=== PATIENT | male | born 1985 | race Caucasian/White ===

== ENCOUNTER → 2016-07-02 | Outpatient (CLI) | payer BC ==
[~2016-07-02] MED LIST: DILT-121 PO; GEMF600T3 PO; HYDR12.55 PO; INSDGI SC; INSPMPNVLG; INSUINJ14 SQ; INSUINJ4 SC; LISI40TA PO; NIAC50TA PO; ONDA4TAB10 SL; OXYC-57 PO; OXYC1TAB3 PO; PRT/40 PO
[2016-07-02 11:22] LABS: ESTIMATED AVERAGE GLUCOSE 166 mg/dl; HA1C FLAG Normal (Normal)
[2016-07-02 11:46] LABS: ALT/SGPT 130 U/L (12-78); AST/SGOT 47 U/L (15-37); BLOOD UREA NITROGEN 13 mg/dl (7-18); BUN/CREATININE RATIO 14.3 (10-20); CALCIUM 9.4 mg/dl (8.5-10.1); CARBON DIOXIDE 29 mmol/L (21-32); CHLORIDE 104 mmol/L (98-107); CREATININE 0.92 mg/dl (0.60-1.40); GLUCOSE 132 mg/dl (70-99); POTASSIUM 4.3 mmol/L (3.5-5.1); SODIUM 140 mmol/L (136-145); TRIGLYCERIDES 644 mg/dl (0-150)
== END | disposition home or self-care (01) ==
LOC: C.LAB1850 10:18
PROVIDERS: ATTEND Internal Medicine
DX: E78.5 Hyperlipidemia, unspecified (principal)

== ENCOUNTER 2016-09-30 11:49 | Emergency (ER) | payer BC, OTHER ==
[~2016-09-30] VITALS: Ht 180.3 cm; Wt 116.2 kg
[~2016-09-30 11:49] MED LIST changes: -DILT-121 PO; -GEMF600T3 PO; -HYDR12.55 PO; -INSDGI SC; -INSPMPNVLG; -LISI40TA PO; -OXYC-57 PO; -PRT/40 PO
[2016-09-30 11:53] VITALS: TEMP 36.6; Ht 180.3 cm; Wt 116.2 kg
[2016-09-30] MEDS ORDERED: SODIUM CHLORIDE 0.9% 1000ML 1,000 ML IV STA (12:17)
[2016-09-30] MEDS ORDERED: ONDANSETRON INJ 2 MG/ML 2 ML VIAL IV STA (12:17)
[2016-09-30] MEDS ORDERED: HYDROmorphone INJ 1 MG/ML SYR IV STA ×2 (12:17→13:12)
[2016-09-30 12:34] LABS: BASO % 0.3 %; BASO ABS # 0.02 K/uL (0-0.2); COMPLETE YES; EOS % 1.1 %; HEMATOCRIT 43.5 % (42-52); IG% 1.1 %; LYMPH % 24.4 %; MEAN CELL VOLUME 80.7 fL (80-100); MEAN CORPUSCULAR HEMOGLOBIN 28.8 pg (25-34); MEAN CORPUSCULAR HGB CONC 35.6 g/dl (32-36); MEAN PLATELET VOLUME 11.6 fL (7.4-10.4); MONO % 8.2 %; NEUT % 64.9 %; PLATELET COUNT 226 K/uL (130-400); RED BLOOD COUNT 5.39 M/uL (4.7-6.1); WHITE BLOOD COUNT 6.55 K/uL (4.8-10.8)
[2016-09-30 13:15] LABS: URINE APPEARANCE CLEAR (CLEAR); URINE BILIRUBIN NEG (NEG); URINE COLOR DK YELLOW; URINE EPITHELIAL CELL AUTO >30 /lpf (0-5); URINE NITRITE NEG (NEG); URINE PH 5.5 (4.5-7.5); URINE SPECIFIC GRAVITY 1.023 (1.000-1.030); UROBILINOGEN NEG (NEG)
[2016-09-30 13:19] LABS: ALKALINE PHOSPHATASE 99 U/L (45-117); ALT/SGPT 39 U/L (12-78); AST/SGOT 23 U/L (15-37); BLOOD UREA NITROGEN 10 mg/dl (7-18); BUN/CREATININE RATIO 10.4 (10-20); CALCIUM 9.4 mg/dl (8.5-10.1); CARBON DIOXIDE 26 mmol/L (21-32); CHLORIDE 108 mmol/L (98-107); CREATININE 0.97 mg/dl (0.60-1.40); GLUCOSE 77 mg/dl (70-99); POTASSIUM 4.3 mmol/L (3.5-5.1); SODIUM 142 mmol/L (136-145)
[2016-09-30 13:20] LABS: MANUAL MICROSCOPIC REQUIRED? NO; REVIEW REQ? YES
[2016-09-30] MEDS ORDERED: HYDROmorphone INJ 1 MG/ML SYR IM STA (14:03)
[2016-09-30] MEDS ORDERED: OXYC-57 PO (14:08)
[2016-09-30 14:13] VITALS: O2SAT 96
[2016-09-30 14:35] VITALS: BP 148/88; PULSE 81; O2SAT 96
--- NOTE | 2016-09-30 19:54 | EMERGENCY ROOM VISIT NOTE ---
ED Visit Note First contact with patient: 11:59 Chief Complaint: Abdominal pain. History of Present Illness: Mr. Miranda is a 31 year-old white male who ambulates into the ED complaining of epigastric abdominal pain. Historically patient reports history every current pancreatitis and status post cholecystectomy. His recurrent pancreatitis is been going on for the last 3 years she reports 2 years ago his gallbladder was removed because he had sludge and it was felt to be the culprit in his recurrent pancreatitis. He continues to have pain intermittently. The most recent 3 for his discomfort is sphincter of Ode dysfunction. 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 Patient reports he was woken from sleep approximately 5 hours ago with epigastric pain. Since that time his pain has been constant. He describes his discomfort as a cramping sensation. There is extension into his pain into the medial border of the left upper quadrant. He has not identified any aggravating or alleviating factors related to the pain. He has not taken any medications for pain prior to arrival at the hospital. He rates his discomfort 8/10. Associated with his pain he reports she's been nauseated but has not vomited. He denies fevers, chills, sweats, skin eruptions, skin color changes, upper respiratory tract symptoms, shortness of breath, chest pain, diarrhea, constipation, rectal bleeding, black/tarry stools, urinary symptoms, hematuria, back/flank pain. Review of Systems: As noted above in history of present illness. All body systems were reviewed and found to be negative as noted above. Past Medical History: As previously noted and diabetes, unspecified skin disorder. Current Medications: Insulin, pantoprazole, lisinopril, diltiazem, niacin, Lopid. Allergies to Medications: Patient denies. Social History: Patient is currently employed; he lives with his fiance and feels safe in his home environment; he denies tobacco and alcohol use. Physical Examination: Vital Signs: Date Time Temp Pulse Resp B/P Pulse Ox O2 Delivery O2 Flow Rate FiO2 09/30/16 14:35 81 16 148/88 96 Room Air 09/30/16 14:13 96 Room Air 09/30/16 12:59 80 16 155/101 09/30/16 11:53 36.6 123 18 145/96 97 Room Air GENERAL: 31-year-old male in moderate distress due to pain, nontoxic-appearing, afebrile and hemodynamically stable. NEUROLOGICAL: Awake, alert and oriented to person, place and time. Answering questions appropriately and following commands. Normal gait. Good hand eye coordination. SKIN: Warm, dry and pink. No soft tissue eruptions or trauma noted. HEENT: Atraumatic and normocephalic. PERRLA. Sclera white and conjunctiva pink. Speech normal. No lymphadenopathy. Trachea midline. No jugular venous distention. BACK: No tenderness over the bony spine. No CVA tenderness. THORAX: Lungs sounds are clear to auscultation and equal bilaterally with symmetrical chest wall. No wheezing, rales or rhonchi. No crepitus, tenderness , subcutaneous air or deformities noted. HEART: Regular rate and rhythm. No gallops, rubs or murmurs are appreciated. ABDOMEN: Flat and soft with moderate tenderness in the epigastrium and the medial aspect of the left upper quadrant. Positive bowel sounds in all quadrants. No guarding, rigidity or organomegaly. EXTREMITIES: Moves all extremities well on command and with purpose. All distal neurovascular statuses are intact and equal bilaterally. ED Course: Patient is assessed as noted above. Laboratory Testing: Test 09/30/16 12:17 09/30/16 12:55 Range/Units White Blood Count 6.55 4.8-10.8 K/uL Red Blood Count 5.39 4.7-6.1 M/uL Hemoglobin 15.5 14.0-18.0 g/dL Hematocrit 43.5 42-52 % Mean Corpuscular Volume 80.7 80-100 fL Mean Corpuscular Hemoglobin 28.8 25-34 pg Mean Corpuscular Hemoglobin Concent 35.6 32-36 g/dl Platelet Count 226 130-400 K/uL Mean Platelet Volume 11.6 7.4-10.4 fL Neutrophils (%) (Auto) 64.9 % Lymphocytes (%) (Auto) 24.4 % Monocytes (%) (Auto) 8.2 % Eosinophils (%) (Auto) 1.1 % Basophils (%) (Auto) 0.3 % Neutrophils # (Auto) 4.25 1.4-6.5 K/uL Lymphocytes # (Auto) 1.60 1.2-3.4 K/uL Monocytes # (Auto) 0.54 0.11-0.59 K/uL Eosinophils # (Auto) 0.07 0-0.5 K/uL Basophils # (Auto) 0.02 0-0.2 K/uL RDW Standard Deviation 36.8 36.4-46.3 fL RDW Coefficient of Variation 12.4 11.5-14.5 % Immature Granulocyte % (Auto) 1.1 % Immature Granulocyte # (Auto) 0.07 0.00-0.02 K/uL Sodium Level 142 136-145 mmol/L Potassium Level 4.3 3.5-5.1 mmol/L Chloride Level 108 98-107 mmol/L Carbon Dioxide Level 26 21-32 mmol/L Anion Gap 8.0 3-11 mmol/L Blood Urea Nitrogen 10 7-18 mg/dl Creatinine 0.97 0.60-1.40 mg/dl Est Creatinine Clear Calc Drug Dose 145.6 ml/min Estimated GFR () 121.8 Estimated GFR (Non- 105.1 BUN/Creatinine Ratio 10.4 10-20 Random Glucose 77 70-99 mg/dl Calcium Level 9.4 8.5-10.1 mg/dl Total Bilirubin 0.6 0.2-1 mg/dl Direct Bilirubin 0-0.2 mg/dl Aspartate Amino Transf (AST/SGOT) 23 15-37 U/L Alanine Aminotransferase (ALT/SGPT) 39 12-78 U/L Alkaline Phosphatase 99 45-117 U/L Total Protein 8.2 6.4-8.2 gm/dl Albumin 4.1 3.4-5.0 gm/dl Lipase 1908 73-393 U/L Chemistry Specimen Hemolysis Urine Color DK YELLOW Urine Appearance CLEAR CLEAR Urine pH 5.5 4.5-7.5 Urine Specific [place] 1.023 1.000-1.030 Urine Protein 3+ NEG Urine Glucose (UA) 2+ NEG Urine Ketones NEG NEG Urine Occult Blood TRACE NEG Urine Nitrite NEG NEG Urine Bilirubin NEG NEG Urine Urobilinogen NEG NEG Urine Leukocyte Esterase NEG NEG Urine WBC (Auto) 1-5 0-5 /hpf Urine RBC (Auto) 5-10 0-4 /hpf Urine Hyaline Casts (Auto) >30 0-5 /lpf Urine Epithelial Cells (Auto) >30 0-5 /lpf Urine Bacteria (Auto) NEG NEG Urine Renal Epithelial Cells 0-5 /lpf Urine Pathogenic Casts 0 /lpf Patient was hydrated with normal saline and initially she 1 mg of the Dilaudid IV for pain and 4 mg of Zofran IV for nausea. On additional reevaluation she received an additional 1 mg of Dilaudid IV and just prior to discharge she was given 1 mg of Dilaudid IV IM. Patient was reassessed multiple times during his stay in the emergency department. I did have a lengthy conversation with the patient about admission versus discharge to home and he requested to be discharged. Patient's case was reviewed with Dr. Montoya; we agreed on diagnostic approach, treatment, disposition and plan. Patient was educated about tonight's findings and instructed on his treatment plan; he verbalizes understanding and agreement with this plan. Clinical Impression: Acute on chronic pancreatitis. Decision-Making: Initially my differential diagnosis I considered pancreatitis, hepatitis, gastroenteritis, gastric reflux, peptic ulcer disease, pneumonia and other causes. Disposition: Patient discharged home in stable condition accompanied by a male friend; prior to departure he was reassessed and subjectively reported he was feeling better and rated his discomfort 2/10. Plan: Patient was encouraged to use a liquid diet only for the next 48 hours and avoid all stomach irritants. Patient was prescribed Percocet for pain on a sliding pain scale; appropriate narcotic precautions were discussed with the patient. Patient was encouraged to follow-up with his GI specialist for definitive care and treatment. Patient was encouraged return the ED for worsening/uncontrolled pain, fevers, bloody vomitus, bloody stools or any new/concerning symptoms.
== END 2016-09-30 14:49 | disposition home or self-care (01) ==
LOC: C.EDB 11:50 → C.EDA 14:49
DX: K85.90 Acute pancreatitis without necrosis or infection, unspecified (principal); K86.1 Other chronic pancreatitis; E11.9 Type 2 diabetes mellitus without complications; Z87.2 Personal history of diseases of the skin and subcutaneous tissue; Z79.4 Long term (current) use of insulin; Z79.899 Other long term (current) drug therapy

== ENCOUNTER 2016-10-03 22:38 | Emergency (ER) | payer BC ==
[~2016-10-03] VITALS: Ht 180.3 cm; Wt 114.9 kg
[~2016-10-03 22:38] MED LIST changes: +OXYC-57 PO
[2016-10-03 22:50] VITALS: Ht 180.3 cm; Wt 114.9 kg
[2016-10-03] MEDS ORDERED: HYDROmorphone INJ 1 MG/ML SYR IV STA (23:23)
[2016-10-03] MEDS ORDERED: ONDANSETRON INJ 2 MG/ML 2 ML VIAL IV STA (23:23)
[2016-10-03] MEDS ORDERED: SODIUM CHLORIDE 0.9% 1000ML 1,000 ML IV STA (23:23)
[2016-10-03 23:49] LABS: BASO % 0.3 %; BASO ABS # 0.02 K/uL (0-0.2); COMPLETE YES; EOS % 1.7 %; HEMATOCRIT 44.5 % (42-52); IG% 0.4 %; LYMPH % 33.5 %; LYMPH ABS # 2.37 K/uL (1.2-3.4); MEAN CELL VOLUME 81.7 fL (80-100); MEAN CORPUSCULAR HGB CONC 35.5 g/dl (32-36); MEAN PLATELET VOLUME 11.1 fL (7.4-10.4); MONO % 10.6 %; NEUT % 53.5 %; PLATELET COUNT 256 K/uL (130-400); RED BLOOD COUNT 5.45 M/uL (4.7-6.1); WHITE BLOOD COUNT 7.07 K/uL (4.8-10.8)
[2016-10-04 00:07] LABS: ALT/SGPT 66 U/L (12-78); AST/SGOT 33 U/L (15-37); BLOOD UREA NITROGEN 9 mg/dl (7-18); BUN/CREATININE RATIO 9.8 (10-20); CALCIUM 9.7 mg/dl (8.5-10.1); CARBON DIOXIDE 27 mmol/L (21-32); CHLORIDE 105 mmol/L (98-107); CREATININE 0.94 mg/dl (0.60-1.40); GLUCOSE 101 mg/dl (70-99); POTASSIUM 3.4 mmol/L (3.5-5.1); SODIUM 143 mmol/L (136-145)
[2016-10-04 00:10] LABS: ALKALINE PHOSPHATASE 117 U/L (45-117)
[2016-10-04] MEDS ORDERED: HYDROmorphone INJ 1 MG/ML SYR IV STA (00:21)
[2016-10-04] MEDS ORDERED: HYDROmorphone INJ 0.5 MG/0.5 ML SYR ONE (00:40)
[2016-10-04 01:53] VITALS: BP 158/93; PULSE 122; TEMP 36.6; O2SAT 96
--- NOTE | 2016-10-04 01:59 | EMERGENCY ROOM VISIT NOTE ---
History Report prepared by Rajat: Zulay Logan Under the Supervision of: Dr. Ramiro Suero M.D. First contact with patient: 23:18 Chief Complaint: ABDOMINAL PAIN Stated Complaint: STOMACH PAINS - PANCREATITIS History of Present Illness The patient is a 31 year old male who presents to the Emergency Room with complaints of worsening LUQ abdominal pain beginning [employer]. The patient has a history of recurrent pancreatitis. He was seen in the ED 3 days ago for pancreatitis. His pain was treated with Dilaudid and he was discharged home per his request. The patient states that over the next couple of days his pain seemed to be improving. He has been on a liquid diet for the past 3 days, although he did have a small amount of rice today. This afternoon his pain started to worsen. The patient describes his pain as crampy and achy, and he rates it as a 6/10 in severity. He feels dehydrated. He states that this feels like his typical pancreatitis. He does not drink alcohol. The patient denies fever, vomiting, melena, hematochezia, and urinary symptoms. He has an appointment scheduled with his PCP on Friday. Source of History: patient Onset: [employer] Position: abdomen (LUQ) Symptom Intensity: 6/10 Quality: ache, other (cramp) Timing: worsening Modifying Factors (Worsening): other (recurrent pancreatitis) Associated Symptoms: No fevers, No hematochezia, No melena, No urinary symptoms, No vomiting Review of Systems See HPI for pertinent positives & negatives. A total of 10 systems reviewed and were otherwise negative. Past Medical & Surgical Medical Problems: (1) Cholecystectomy (2) Diabetes mellitus (3) Pancreatitis (4) Psoriasis Family History Diabetes mellitus Hypertension Social History Smoking Status: Never Smoker Alcohol Use: none Drug Use: none Marital Status: in relationship Housing Status: lives with significant other Occupation Status: employed Current/Historical Medications Scheduled Diltiazem Hcl Ext Rel (Tiazac), 420 MG PO DAILY Gemfibrozil (Lopid), 600 MG PO BID Insulin Aspart (Novolog Penfill), 0 SQ WM Insulin Glargine (Lantus Solostar Pen), 54 UNITS SC HS Lisinopril (Zestril), 40 MG PO BID Niacin (Niacin), 4 TABS PO DAILY Ondasetron Odt (Zofran Odt), 4 MG SL Q6H Scheduled PRN Oxycodone Immediate Rel Tab (Roxicodone Ir), 1-2 TAB PO Q4H PRN for Severe Pain Oxycodone Ir (Roxicodone Ir), 1-2 TAB PO Q4H PRN for Pain Oxycodone/Acetaminophen 5MG/325MG (Percocet 5MG/325MG), 1-2 TABS PO Q6H PRN for Pain Pantoprazole (Pantoprazole Sodium), 40 MG PO DAILY PRN for GI Upset Allergies Coded Allergies: No Known Allergies (Unverified , 09/30/16) Physical Exam Vital Signs Date Time Temp Pulse Resp B/P Pulse Ox O2 Delivery O2 Flow Rate FiO2 10/04/16 01:53 36.6 122 20 158/93 96 10/03/16 22:50 36.6 122 20 188/125 96 Room Air Physical Exam Constitutional: Vital signs reviewed. Eyes: Pupils are equal round reactive to light. Conjunctiva are noninjected. ENT: Pharynx is clear without erythema or exudate. Mucous membranes are moist. Neck supple without meningeal signs. Respiratory: Clear to auscultation bilaterally. Breath sounds are equal bilaterally. Cardiovascular: Regular rate and rhythm. No rubs or gallops. GI: Soft, nondistended and mild epigastric tenderness. Bowel sounds are present. Musculoskeletal: No peripheral edema. No lower extremity tenderness. Integumentary: No cyanosis. Neurological: The patient is awake and alert. No focal deficits. Psychiatric: Normal affect. Medical Decision & Procedures Laboratory Results 10/03/16 23:30 Red Blood Count 5.45, Mean Corpuscular Volume 81.7, Mean Corpuscular Hemoglobin 29.0, Mean Corpuscular Hemoglobin Concent 35.5, Mean Platelet Volume 11.1, Neutrophils (%) (Auto) 53.5, Lymphocytes (%) (Auto) 33.5, Monocytes (%) (Auto) 10.6, Eosinophils (%) (Auto) 1.7, Basophils (%) (Auto) 0.3, Neutrophils # (Auto ) 3.78, Lymphocytes # (Auto) 2.37, Monocytes # (Auto) 0.75, Eosinophils # (Auto ) 0.12, Basophils # (Auto) 0.02 10/03/16 23:30 Test 10/03/16 23:30 White Blood Count 7.07 K/uL (4.8-10.8) Red Blood Count 5.45 M/uL (4.7-6.1) Hemoglobin 15.8 g/dL (14.0-18.0) Hematocrit 44.5 % (42-52) Mean Corpuscular Volume 81.7 fL (80-100) Mean Corpuscular Hemoglobin 29.0 pg (25-34) Mean Corpuscular Hemoglobin Concent 35.5 g/dl (32-36) Platelet Count 256 K/uL (130-400) Mean Platelet Volume 11.1 fL (7.4-10.4) Neutrophils (%) (Auto) 53.5 % Lymphocytes (%) (Auto) 33.5 % Monocytes (%) (Auto) 10.6 % Eosinophils (%) (Auto) 1.7 % Basophils (%) (Auto) 0.3 % Neutrophils # (Auto) 3.78 K/uL (1.4-6.5) Lymphocytes # (Auto) 2.37 K/uL (1.2-3.4) Monocytes # (Auto) 0.75 K/uL (0.11-0.59) Eosinophils # (Auto) 0.12 K/uL (0-0.5) Basophils # (Auto) 0.02 K/uL (0-0.2) RDW Standard Deviation 37.0 fL (36.4-46.3) RDW Coefficient of Variation 12.5 % (11.5-14.5) Immature Granulocyte % (Auto) 0.4 % Immature Granulocyte # (Auto) 0.03 K/uL (0.00-0.02) Anion Gap 11.0 mmol/L (3-11) Est Creatinine Clear Calc Drug Dose 149.4 ml/min Estimated GFR () 126.5 Estimated GFR (Non- 109.1 BUN/Creatinine Ratio 9.8 (10-20) Calcium Level 9.7 mg/dl (8.5-10.1) Total Bilirubin 0.3 mg/dl (0.2-1) Direct Bilirubin < 0.1 mg/dl (0-0.2) Aspartate Amino Transf (AST/SGOT) 33 U/L (15-37) Alanine Aminotransferase (ALT/SGPT) 66 U/L (12-78) Alkaline Phosphatase 117 U/L (45-117) Total Protein 8.9 gm/dl (6.4-8.2) Albumin 4.5 gm/dl (3.4-5.0) Lipase 2029 U/L (73-393) Laboratory results as reviewed by me. Medications Administered Medications (Trade) Dose Ordered Sig/Charisma Route Start Time Stop Time Status Last Admin Dose Admin Ondansetron HCl 4 mg 4 mg NOW STAT IV 10/03/16 23:23 10/03/16 23:25 DC 10/03/16 23:35 4 MG Sodium Chloride (Nss 1000ml) 1,000 ml @ 999 mls/hr Q1H1M STAT IV 10/03/16 23:23 10/04/16 00:23 DC 10/03/16 23:29 999 MLS/HR Hydromorphone HCl (Dilaudid Inj) 1 mg NOW STAT IV 10/03/16 23:23 10/03/16 23:25 DC 10/03/16 23:35 1 MG Hydromorphone HCl (Dilaudid Inj) 0.5 mg STK-MED ONCE .ROUTE 10/04/16 00:40 10/04/16 00:41 DC 10/04/16 00:38 0.5 MG ED Course 2318: The patient was evaluated in room C9. A complete history and physical exam was performed. 2323: Dilaudid 1 mg IV, NSS 1000 ml @ 999 mls/hr IV, Zofran 4 mg IV 0016: I reassessed the patient at this time. I discussed his test results with him and recommended hospitalization. The patient declined. He states that his lipase normally bumps up a bit before it comes down. 0021: Dilaudid 0.5 mg IV 0048: I reassessed the patient. He is feeling better and continues to decline admission. He will follow-up with his PCP on Friday. I answered all pertaining questions that he had. He expressed understanding and verbalized agreement. The patient will be discharged home. Medical Decision This is a 31-year-old male who presents with worsening pancreatitis. I did perform a limited focused review of portions of the patient's old chart on the electronic medical record. The patient has was seen here 09/30/16 for abdominal pain. He has a history of recurrent pancreatitis. He is S/P cholecystectomy. He had a lipase of 1900. He was treated with Dilaudid and discharged home per his request. I did evaluate the patient as noted above. The patient has a history of pancreatitis and was here several days ago with an elevated lipase. He states he felt better but then his pain became worse today. He has been on liquid diet. He did present for pain management. IV access was established. I did treat him with IV Dilaudid and Zofran. He is also given a liter normal saline IV. I did order and review the patient's blood work as noted in the electronic medical record. His lipase is over 2000. I did reassess the patient. He states he feels better but has some pain. He was given additional 0.5 mg of Dilaudid. I did recommend hospitalization but the patient declined. He stated that his lipase normally goes up and he feels well enough to go home and has an appointment with his doctor in approximate 4 days. He will remain on his liquid diet and return should he have any worsening symptoms. He was discharged per his request. Impression Primary Impression: Acute on chronic pancreatitis Scribe Attestation The scribe's documentation has been prepared under my direct and personally reviewed by me in its entirety. I confirm that the note above accurately reflects all work, treatment, procedures, and medical decision making performed by me. Departure Information Dispostion Home / Self-Care Referrals Ritesh Schneider M.D. (PCP) Forms HOME CARE DOCUMENTATION FORM, IMPORTANT VISIT INFORMATION Patient Instructions My [facility], Pancreatitis Chronic Dc Additional Instructions You have been examined and treated today on an emergency basis only. This is not a substitute for, or an effort to provide, complete comprehensive medical care. It is impossible to recognize and treat all injuries or illnesses in a single emergency department visit. It is therefore important that you follow up closely with your physician on Friday per your appointment. Return for worsening symptoms or if you develop fever, vomiting, or any other concerning symptoms.
== END 2016-10-04 01:56 | disposition home or self-care (01) ==
LOC: C.EDB 22:40 → C.EDC 10-04 01:56
DX: K85.90 Acute pancreatitis without necrosis or infection, unspecified (principal); K86.1 Other chronic pancreatitis; E11.9 Type 2 diabetes mellitus without complications; Z90.49 Acquired absence of other specified parts of digestive tract; Z79.4 Long term (current) use of insulin; Z79.899 Other long term (current) drug therapy; Z83.3 Family history of diabetes mellitus; Z82.49 Family history of ischemic heart disease and other diseases of the circulatory system

== ENCOUNTER → 2017-01-29 | Outpatient (CLI) | payer BC ==
[~2017-01-29] MED LIST changes: +DILT-121 PO; +GEMF600T3 PO; +HYDR12.55 PO; +INSDGI SC; +INSPMPNVLG; +LISI40TA PO; -ONDA4TAB10 SL; +PRT/40 PO
[2017-01-29 15:10] LABS: BASO % 0.3 %; BASO ABS # 0.03 K/uL (0-0.2); COMPLETE YES; EOS % 0.8 %; HEMATOCRIT 42.5 % (42-52); IG% 0.5 %; LYMPH % 35.1 %; LYMPH ABS # 3.04 K/uL (1.2-3.4); MEAN CELL VOLUME 80.6 fL (80-100); MEAN CORPUSCULAR HEMOGLOBIN 28.7 pg (25-34); MEAN CORPUSCULAR HGB CONC 35.5 g/dl (32-36); MEAN PLATELET VOLUME 11.1 fL (7.4-10.4); MONO % 6.8 %; NEUT % 56.5 %; PLATELET COUNT 229 K/uL (130-400); RED BLOOD COUNT 5.27 M/uL (4.7-6.1); WHITE BLOOD COUNT 8.66 K/uL (4.8-10.8)
[2017-01-29 15:22] LABS: ALT/SGPT 104 U/L (12-78); AST/SGOT 18 U/L (15-37); BLOOD UREA NITROGEN 14 mg/dl (7-18); BUN/CREATININE RATIO 14.3 (10-20); CALCIUM 9.2 mg/dl (8.5-10.1); CARBON DIOXIDE 27 mmol/L (21-32); CHLORIDE 107 mmol/L (98-107); GLUCOSE 107 mg/dl (70-99); SODIUM 140 mmol/L (136-145)
[2017-01-29 15:23] LABS: TRIGLYCERIDES 799 mg/dl (0-150)
[2017-01-30 07:25] LABS: ESTIMATED AVERAGE GLUCOSE 148 mg/dl; HA1C FLAG Normal (Normal)
== END | disposition home or self-care (01) ==
LOC: C.LAB1850 13:40
PROVIDERS: ATTEND Physician Assistant
DX: I10 Essential (primary) hypertension (principal); E78.5 Hyperlipidemia, unspecified; Q60.2 Renal agenesis, unspecified

== ENCOUNTER 2017-02-05 16:41 | Emergency (ER) | payer BC ==
[~2017-02-05] VITALS: Ht 180.3 cm; Wt 116.5 kg
[~2017-02-05 16:41] MED LIST changes: -HYDR12.55 PO; -INSDGI SC; -INSPMPNVLG
[2017-02-05 16:45] VITALS: TEMP 37.1; Ht 180.3 cm; Wt 116.5 kg
[2017-02-05] MEDS ORDERED: SODIUM CHLORIDE 0.9% 1000ML 1,000 ML IV STA (16:56)
[2017-02-05] MEDS ORDERED: HYDROmorphone INJ 1 MG/ML SYR IV STA ×2 (16:56→17:49)
[2017-02-05] MEDS ORDERED: ONDANSETRON INJ 2 MG/ML 2 ML VIAL IV STA (16:56)
[2017-02-05] MEDS ORDERED: HYDR12.55 PO (17:37)
[2017-02-05 17:39] LABS: BASO % 0.2 %; BASO ABS # 0.02 K/uL (0-0.2); COMPLETE YES; EOS % 0.7 %; HEMATOCRIT 41.8 % (42-52); IG% 0.6 %; LYMPH % 25.6 %; MEAN CELL VOLUME 79.6 fL (80-100); MEAN CORPUSCULAR HEMOGLOBIN 28.2 pg (25-34); MEAN CORPUSCULAR HGB CONC 35.4 g/dl (32-36); MEAN PLATELET VOLUME 10.9 fL (7.4-10.4); MONO % 6.1 %; NEUT % 66.8 %; PLATELET COUNT 232 K/uL (130-400); RED BLOOD COUNT 5.25 M/uL (4.7-6.1); WHITE BLOOD COUNT 10.93 K/uL (4.8-10.8)
[2017-02-05] MEDS ORDERED: INSDGI SC (17:39)
[2017-02-05] MEDS ORDERED: INSPMPNVLG (17:39)
[2017-02-05 17:55] LABS: CALCIUM 9.2 mg/dl (8.5-10.1); POTASSIUM 4.1 mmol/L (3.5-5.1)
--- NOTE | 2017-02-05 17:55 | EMERGENCY ROOM VISIT NOTE ---
History First contact with patient: 16:47 Chief Complaint: ABDOMINAL PAIN Stated Complaint: SEVERE STOMACH PAIN; HX OF PANCREATITIS Nursing Triage Summary: Pt reports LUQ pain that begain mid mornign. Pt states "it feels like it does when I have pancreatitis." History of Present Illness The patient is a 31 year old male who presents to the Emergency Room via private vehicle accompanied by female with complaints of "severe stomach pain, history of pancreatitis". The patient states that he has had pancreatitis numerous times, and is diabetic. He denies alcohol use. He states that most recently he woke up this morning, with severe epigastric abdominal pain. He states this feels exactly like his previous pancreatitis episodes. He currently rates his pain as a 5/10. He denies any chest pain, shortness of breath, fevers or chills. He denies any diarrhea or constipation. Review of Systems A complete 10-point Review of Systems was discussed with the patient, with pertinent positives and negatives listed in the History of Present Illness. All remaining Review of Systems questions can be considered negative unless otherwise specified. Past Medical/Surgical History Medical Problems: (1) Cholecystectomy (2) Diabetes mellitus (3) Pancreatitis (4) Psoriasis Family History Diabetes mellitus Hypertension Social History Smoking Status: Never Smoker Alcohol Use: none Drug Use: none Marital Status: in relationship Housing Status: lives with significant other Occupation Status: employed Current/Historical Medications Scheduled Diltiazem Hcl Ext Rel (Tiazac), 420 MG PO DAILY Gemfibrozil (Lopid), 600 MG PO BID Hydrochlorothiazide (Hydrochlorothiazide), 1 TAB PO DAILY Insulin Aspart (novoLOG INSULIN PUMP ), 1 EA N/A UD Insulin Glargine (Lantus), 54 UNITS SC HS Lisinopril (Zestril), 40 MG PO BID Scheduled PRN Oxycodone Immediate Rel Tab (Roxicodone Ir), 1-2 TAB PO Q4H PRN for Severe Pain Oxycodone/Acetaminophen 5MG/325MG (Percocet 5MG/325MG), 1-2 TABS PO Q6H PRN for Pain Oxycodone/Acetaminophen 5MG/325MG (Percocet 5MG/325MG), 1-2 TABS PO Q6 PRN for Pain Pantoprazole (Pantoprazole Sodium), 40 MG PO DAILY PRN for GI Upset Physical Exam Vital Signs Date Time Temp Pulse Resp B/P (MAP) Pulse Ox O2 Delivery O2 Flow Rate FiO2 02/05/17 18:20 103 16 142/95 95 Room Air 02/05/17 18:00 94 Nasal Cannula 2.0 02/05/17 16:45 37.1 115 20 156/115 96 Room Air Physical Exam VITAL SIGNS - Vital signs and nursing notes were reviewed. GENERAL -31-year-old male appearing his stated age who is in no acute distress. Communicates well with provider and answers questions appropriately. SKIN - Without rashes. No petechial rashes. HEAD - NC/AT. EYES - PERRL with EOMI bilaterally. Sclera anicteric. Palpebral conjunctiva pink and moist with no injection noted. LUNGS - Chest wall symmetric without accessory muscle use, intercostals retractions, or central cyanosis. Normal vesicular breath sounds CTA B/L. No wheezes, rales, or rhonchi appreciated. CARDIAC - RRR with S1/S2. No murmur, rubs, or gallops appreciated. ABDOMEN - Abdominal contour normal without pulsations or visible masses. BS normoactive all four quadrants. There is tenderness to palpation overlying the epigastric region noted to examination. Slight elevation of the right upper quadrant to palpation, patient notes this is where he injects insulin. No Hepatosplenomegaly, or ascites noted. Medical Decision & Procedures Laboratory Results 02/05/17 17:25 Red Blood Count 5.25, Mean Corpuscular Volume 79.6, Mean Corpuscular Hemoglobin 28.2, Mean Corpuscular Hemoglobin Concent 35.4, Mean Platelet Volume 10.9, Neutrophils (%) (Auto) 66.8, Lymphocytes (%) (Auto) 25.6, Monocytes (%) (Auto) 6.1, Eosinophils (%) (Auto) 0.7, Basophils (%) (Auto) 0.2, Neutrophils # (Auto) 7.29, Lymphocytes # (Auto) 2.80, Monocytes # (Auto) 0.67, Eosinophils # (Auto) 0.08, Basophils # (Auto) 0.02 02/05/17 17:25 Test 02/05/17 17:25 White Blood Count 10.93 K/uL (4.8-10.8) Red Blood Count 5.25 M/uL (4.7-6.1) Hemoglobin 14.8 g/dL (14.0-18.0) Hematocrit 41.8 % (42-52) Mean Corpuscular Volume 79.6 fL (80-100) Mean Corpuscular Hemoglobin 28.2 pg (25-34) Mean Corpuscular Hemoglobin Concent 35.4 g/dl (32-36) Platelet Count 232 K/uL (130-400) Mean Platelet Volume 10.9 fL (7.4-10.4) Neutrophils (%) (Auto) 66.8 % Lymphocytes (%) (Auto) 25.6 % Monocytes (%) (Auto) 6.1 % Eosinophils (%) (Auto) 0.7 % Basophils (%) (Auto) 0.2 % Neutrophils # (Auto) 7.29 K/uL (1.4-6.5) Lymphocytes # (Auto) 2.80 K/uL (1.2-3.4) Monocytes # (Auto) 0.67 K/uL (0.11-0.59) Eosinophils # (Auto) 0.08 K/uL (0-0.5) Basophils # (Auto) 0.02 K/uL (0-0.2) RDW Standard Deviation 37.5 fL (36.4-46.3) RDW Coefficient of Variation 12.9 % (11.5-14.5) Immature Granulocyte % (Auto) 0.6 % Immature Granulocyte # (Auto) 0.07 K/uL (0.00-0.02) Anion Gap 9.0 mmol/L (3-11) Est Creatinine Clear Calc Drug Dose 141.5 ml/min Estimated GFR () 117.4 Estimated GFR (Non- 101.3 BUN/Creatinine Ratio 17.0 (10-20) Calcium Level 9.2 mg/dl (8.5-10.1) Total Bilirubin 0.8 mg/dl (0.2-1) Aspartate Amino Transf (AST/SGOT) 27 U/L (15-37) Alanine Aminotransferase (ALT/SGPT) 49 U/L (12-78) Alkaline Phosphatase 95 U/L (45-117) Total Protein 7.9 gm/dl (6.4-8.2) Albumin 4.0 gm/dl (3.4-5.0) Globulin 3.9 gm/dl (2.5-4.0) Albumin/Globulin Ratio 1.0 (0.9-2) Amylase Level 45 U/L (25-115) Lipase 141 U/L (73-393) Medications Administered Medications (Trade) Dose Ordered Sig/Charisma Route Start Time Stop Time Status Last Admin Dose Admin Sodium Chloride 1,000 ml @ 999 mls/hr Q1H1M STAT IV 02/05/17 16:56 02/05/17 17:56 DC 02/05/17 17:23 999 MLS/HR Hydromorphone HCl (Dilaudid Inj) 1 mg NOW STAT IV 02/05/17 16:56 02/05/17 16:58 DC 02/05/17 17:23 1 MG Ondansetron HCl (Zofran Inj) 4 mg NOW STAT IV 02/05/17 16:56 02/05/17 16:58 DC 02/05/17 17:23 4 MG Hydromorphone HCl (Dilaudid Inj) 1 mg NOW STAT IV 02/05/17 17:49 02/05/17 17:50 DC 02/05/17 17:58 1 MG Medical Decision Patient was seen and evaluated as above. Previous visits were extensively reviewed. Patient has been here numerous times for pancreatitis. He was offered imaging studies, to include a cardiac workup but notes that this feels identical to his previous pancreatic abnormalities and I agree that at this time we should pursue that. He was given fluids, pain and was made nothing by mouth. Slight leukocytosis noted. No anemia noted. Chappel does not reveal any evidence of kidney or liver failure. Amylase and lipase are nondiagnostic. Patient was given Dilaudid for his pain, made nothing by mouth and given fluids. He has a history of pancreatitis, and notes that at times he will not have elevations of his pancreatic enzymes. I believe he is experiencing acute on chronic exacerbation of his pancreatitis. He was offered further management here and testing for heart and look and other causes but he notes that he would like to go home have a trial of outpatient management with pain medication with close follow-up with his family doctor tomorrow. I believe this is appropriate as he doesn't have an appointment with his family doctor. He is to return if worsening. He was educated upon worrisome symptoms which to return, had questions prior to discharge, and was discharged home in good condition. He'll be given a short term course of pain medication from here. Blood pressure elevated, and he is tachycardic although which I believe is secondary to his pain. In the evaluation treatment this patient following differential diagnoses were entertained: Pancreatitis, MS, PE, GERD, acute cholecystitis, among others. Impression Primary Impression: Acute on chronic pancreatitis Departure Information Dispostion Home / Self-Care Condition GOOD Prescriptions Oxycodone/Acetaminophen 5MG/325MG (PERCOCET 5MG/325MG) Tab 1-2 TABS PO Q6 Y for Pain, #15 TAB For Initial Treatment Prov: Shabbir Kitchen PA-C 02/05/17 Referrals Ritesh Schneider M.D. (PCP) Patient Instructions My [facility] Additional Instructions You have been treated in the Emergency Department your Abdominal Pain. Laboratory results and imaging studies have ruled out any emergent causes for your abdominal pain which would warrant admission or surgery. You have been prescribed Percocet to be used for pain control. This is a narcotic medication. You cannot drive or consume alcohol while on this medicine. This medicine should only be used for pain that cannot be controlled with [id number] pain medicines. Do not take Tylenol with the Percocet. For pain control, you can use the following [id number] medicines (if >12 yo): - Regular strength (325mg/tab) Tylenol (acetaminophen) 2 tabs every 4-6 hours as needed. Do not exceed 12 tablets in a 24 hour period. Avoid taking more than 3 grams (3000 mg) of Tylenol per day. This includes any other sources of acetaminophen you may take on a regular basis. Please be careful taking this with Percocet, as it already contains Tylenol. - Regular strength (200 mg/tab) Advil (ibuprofen) 1-2 tabs every 4-6 hours as needed. Do not exceed a dose of 3200 mg per day. Drink plenty of water and stay well hydrated. As with any trip to the Emergency Department, you should follow-up with your Primary Care Provider from today's visit. Please keep your appointment tomorrow. Return to the emergency department if your symptoms persist despite treatment plan outlined above or if the following symptoms occur: increased fevers, chills , worsening nausea/vomiting, blood in your stool or urine. Please return to emergency department with any new/symptoms.
[2017-02-05 18:00] VITALS: O2SAT 94
[2017-02-05] MEDS ORDERED: OXYC-57 PO (18:18)
[2017-02-05 18:20] VITALS: BP 142/95; PULSE 103; O2SAT 95
== END 2017-02-05 18:40 | disposition home or self-care (01) ==
LOC: C.EDB 16:42 → C.EDC 18:40
DX: K85.90 Acute pancreatitis without necrosis or infection, unspecified (principal); E11.9 Type 2 diabetes mellitus without complications; Z90.49 Acquired absence of other specified parts of digestive tract; Z79.4 Long term (current) use of insulin; Z79.899 Other long term (current) drug therapy; Z83.3 Family history of diabetes mellitus; Z82.49 Family history of ischemic heart disease and other diseases of the circulatory system

== ENCOUNTER 2017-05-11 15:10 | Emergency (ER) | payer BC ==
[~2017-05-11] VITALS: Ht 177.8 cm; Wt 118.8 kg
[~2017-05-11 15:10] MED LIST changes: -DILT-121 PO; -GEMF600T3 PO; +HYDR12.55 PO; +INSPMPNVLG; -INSUINJ14 SQ; -INSUINJ4 SC; -LISI40TA PO; -NIAC50TA PO; -PRT/40 PO
[2017-05-11 15:21] VITALS: TEMP 37.1; Ht 177.8 cm; Wt 118.8 kg
--- NOTE | 2017-05-11 15:39 | EMERGENCY ROOM VISIT NOTE ---
History First contact with patient: 15:26 Chief Complaint: ABDOMINAL PAIN Stated Complaint: SEVERE STOMACH PAIN HX OF PANCREATITIS History of Present Illness The patient is a 32 year old male who presents to the Emergency Room with complaints of left-sided abdominal pain that started this morning around 8 AM. The pain has been constant. He describes it as a sharp, cramping sensation. No exacerbating or alleviating factors. The patient describes mild nausea without vomiting. His last bowel movement was this morning and reported normal. He denies any fever or chills. The patient has a history of chronic pancreatitis. He says that this pain feels similar to his previous bouts with pancreatitis. The patient does follow with the GI doctor. He denies any alcohol use. No medication changes. Review of Systems 10 system review performed and negative unless noted in HPI or below Past Medical/Surgical History Medical Problems: (1) Cholecystectomy (2) Diabetes mellitus (3) Pancreatitis (4) Psoriasis Family History Diabetes mellitus Hypertension Social History Smoking Status: Never Smoker Alcohol Use: none Drug Use: none Marital Status: in relationship Housing Status: lives with significant other Occupation Status: employed Current/Historical Medications Scheduled Desonide (Desowen), 1 APPLN TOP DAILY Diltiazem Hcl Ext Rel (Tiazac), 420 MG PO QPM Gemfibrozil (Lopid), 600 MG PO BID Insulin Aspart (Novolog Flexpen), SQ ACHS Insulin Glargine (Lantus), 54 UNITS SC HS Lisinopril (Zestril), 40 MG PO BID Ondasetron Odt (Zofran Odt), 4 MG SL Q6H Scheduled PRN Oxycodone Ir (Roxicodone Ir), 1-2 TAB PO Q4H PRN for Pain Oxycodone/Acetaminophen 5MG/325MG (Percocet 5MG/325MG), 1-2 TABS PO Q6 PRN for Pain Pantoprazole (Pantoprazole Sodium), 40 MG PO DAILY PRN for GI Upset Allergies Coded Allergies: No Known Allergies (Unverified , 02/05/17) Physical Exam Vital Signs Date Time Temp Pulse Resp B/P (MAP) Pulse Ox O2 Delivery O2 Flow Rate FiO2 05/11/17 19:30 75 18 140/87 98 Room Air 05/11/17 18:01 76 18 134/83 97 Room Air 05/11/17 16:46 84 18 161/104 97 Room Air 05/11/17 15:21 37.1 110 17 156/95 93 Room Air Physical Exam VITALS: Vitals are noted on the nurse's note and reviewed by myself. Vital signs stable. GENERAL: 32-year-old male, mildly uncomfortable,, SKIN: The skin was flushed HEAD: Normocephalic atraumatic. MOUTH: Mucous membranes dry. NECK: Supple without nuchal rigidity. No JVD. HEART: Regular rate and rhythm without murmurs gallops or rubs. LUNGS: Clear to auscultation bilaterally without wheezes, rales or rhonchi. No accessory muscle use. ABDOMEN: Bowel sounds hypoactive. Soft, nontender, without organomegaly. No guarding or rebound tenderness. MUSCULOSKELETAL: No muscle atrophy, erythema, or edema noted. Strength 5/5 throughout. NEURO: Patient was alert and oriented to person place and time. Normal sensation to touch. No focal neurological deficits. Medical Decision & Procedures Laboratory Results 05/11/17 15:54 Red Blood Count 5.40, Mean Corpuscular Volume 83.7, Mean Corpuscular Hemoglobin 29.3, Mean Corpuscular Hemoglobin Concent 35.0, Mean Platelet Volume 10.7, Neutrophils (%) (Auto) 67.8, Lymphocytes (%) (Auto) 22.7, Monocytes (%) (Auto) 6.9, Eosinophils (%) (Auto) 0.6, Basophils (%) (Auto) 0.4, Neutrophils # (Auto) 6.06, Lymphocytes # (Auto) 2.03, Monocytes # (Auto) 0.62, Eosinophils # (Auto) 0.05, Basophils # (Auto) 0.04 05/11/17 15:54 Test 05/11/17 15:54 White Blood Count 8.94 K/uL (4.8-10.8) Red Blood Count 5.40 M/uL (4.7-6.1) Hemoglobin 15.8 g/dL (14.0-18.0) Hematocrit 45.2 % (42-52) Mean Corpuscular Volume 83.7 fL (80-100) Mean Corpuscular Hemoglobin 29.3 pg (25-34) Mean Corpuscular Hemoglobin Concent 35.0 g/dl (32-36) Platelet Count 221 K/uL (130-400) Mean Platelet Volume 10.7 fL (7.4-10.4) Neutrophils (%) (Auto) 67.8 % Lymphocytes (%) (Auto) 22.7 % Monocytes (%) (Auto) 6.9 % Eosinophils (%) (Auto) 0.6 % Basophils (%) (Auto) 0.4 % Neutrophils # (Auto) 6.06 K/uL (1.4-6.5) Lymphocytes # (Auto) 2.03 K/uL (1.2-3.4) Monocytes # (Auto) 0.62 K/uL (0.11-0.59) Eosinophils # (Auto) 0.05 K/uL (0-0.5) Basophils # (Auto) 0.04 K/uL (0-0.2) RDW Standard Deviation 38.1 fL (36.4-46.3) RDW Coefficient of Variation 12.6 % (11.5-14.5) Immature Granulocyte % (Auto) 1.6 % Immature Granulocyte # (Auto) 0.14 K/uL (0.00-0.02) Anion Gap 10.0 mmol/L (3-11) Est Creatinine Clear Calc Drug Dose 142.4 ml/min Estimated GFR () 119.4 Estimated GFR (Non- 103.0 BUN/Creatinine Ratio 14.3 (10-20) Calcium Level 9.6 mg/dl (8.5-10.1) Total Bilirubin 0.6 mg/dl (0.2-1) Aspartate Amino Transf (AST/SGOT) 30 U/L (15-37) Alanine Aminotransferase (ALT/SGPT) 72 U/L (12-78) Alkaline Phosphatase 85 U/L (45-117) Total Protein 8.0 gm/dl (6.4-8.2) Albumin 3.9 gm/dl (3.4-5.0) Globulin 4.1 gm/dl (2.5-4.0) Albumin/Globulin Ratio 1.0 (0.9-2) Lipase 389 U/L (73-393) Medications Administered Medications (Trade) Dose Ordered Sig/Charisma Route Start Time Stop Time Status Last Admin Dose Admin Sodium Chloride 1,000 ml @ 999 mls/hr Q1H1M ONCE IV 05/11/17 15:45 05/11/17 16:45 DC 05/11/17 15:59 999 MLS/HR Ondansetron HCl (Zofran Inj) 4 mg Q2H PRN IV 05/11/17 15:45 05/11/17 20:25 DC 05/11/17 15:58 4 MG Morphine Sulfate (MoRPHine SULFATE INJ) 4 mg Q1H PRN IV 05/11/17 15:45 05/11/17 20:25 DC 05/11/17 15:59 4 MG Hydromorphone HCl (Dilaudid Inj) 1 mg ONE ONCE IV 05/11/17 16:45 05/11/17 16:46 DC 05/11/17 16:44 1 MG Hydromorphone HCl (Dilaudid Inj) 1 mg NOW STAT IV 05/11/17 17:49 05/11/17 17:51 DC 05/11/17 17:59 1 MG Sodium Chloride 1,000 ml @ 999 mls/hr Q1H1M ONCE IV 05/11/17 18:15 05/11/17 19:15 DC 05/11/17 18:03 999 MLS/HR Oxycodone HCl (Roxicodone Immediate Rel 5MG Home Pack) 1 homepack UD ONCE PO 05/11/17 19:30 05/11/17 19:31 DC 05/11/17 19:29 1 HOMEPACK Ondansetron HCl (ZOFRAN ODT 4MG Home Pack) 1 homepack UD ONCE PO 05/11/17 19:30 05/11/17 19:31 DC 05/11/17 19:29 1 HOMEPACK ED Course Patient was seen and examined Vital signs including blood pressure were reviewed medications list was verified with patient Labs were obtained, and a saline lock was established The patient was hydrated with 2 L normal saline. He was medicated with morphine and Zofran. The patient was still complaining of pain. He was given Dilaudid 1 mg IV. The case was discussed with Dr. Mcdaniel who is in agreement with my plan Upon reevaluation, his pain was starting to come back. He was given 1 additional dose of Dilaudid. We discussed the results of his workup. He voiced understanding. The patient was given a home pack of oxycodone and Zofran I reviewed discharge instructions the patient. They voiced understanding and had no further questions. Medical Decision Differential diagnosis: Acute on chronic pancreatitis, bowel obstruction, ileus , viral GI illness This patient is a 32-year-old male presents to the emergency department complaining of left upper abdominal pain. This is similar to previous bouts of pancreatitis. The patient's vital signs are stable. He is slightly hypertensive. He was made aware of this. His abdomen was benign on exam. Labs reveal no leukocytosis. His lipase is currently within normal limits. Given his history of chronic pancreatitis, this does not completely rule out an acute exacerbation. The patient was hydrated with 2 L normal saline. His pain was treated with narcotics. He has had similar episodes in the past. He is nontoxic in appearance. He is tolerating liquids. I believe he is stable to be discharged home with close follow-up. The patient is instructed to call his GI doctor first thing tomorrow morning for a follow-up appointment. He was given a short course of narcotics and antinausea medication. He agrees to return to the emergency department immediately with any new or concerning symptoms This chart was completed in part utilizing [employer] Speech Voice Recognition software. Attempts were made to minimize the grammatical errors, random word insertions, pronoun errors and incomplete sentences. Any formal questions or concerns about the content, text or information contained within the body of this dictation should be directly addressed to the provider for clarification. Impression Primary Impression: Abdominal pain, left upper quadrant Departure Information Dispostion Home / Self-Care Condition GOOD Prescriptions Ondasetron Odt (ZOFRAN ODT) 4 Mg Tab 4 MG SL Q6H for Nausea, #20 TAB Prov: Susi Galindo PA-C 05/11/17 Oxycodone Ir (Roxicodone Ir) 5 Mg Tab 1-2 TAB PO Q4H Y for Pain, #15 TAB For Initial Treatment Prov: Susi Galindo PA-C 05/11/17 Referrals Ritesh Schneider M.D. (PCP) Tali Solo, DO Patient Instructions My [facility] Additional Instructions You were evaluated in the emergency department for left upper abdominal pain. It is possible that you have an early pancreatitis. Please follow a clear liquid diet such as broth, water, Sprite and sports drinks over the next 48 hours Oxycodone Immediate Release (OxyIR) 5mg: Take 1-2 pills every four hours for pain. Avoid alcohol, operating machinery or dangerous equipment, working on ladders or roofs, DRIVING, or situations where being under the influence may be dangerous. It is recommended to use an [id number] stool softener such as Colace, 100mg twice daily while taking this medication to avoid constipation. Zofran every 6 hours as needed for nausea Please call tomorrow morning for a follow-up appointment with your GI doctor. Please also follow up with her primary care physician within one week for a recheck. Please do not hesitate to return to the emergency department with any new, worsening or concerning symptoms, especially increased abdominal pain, intractable vomiting or fever
[2017-05-11] MEDS ORDERED: SODIUM CHLORIDE 0.9% 1000ML 1,000 ML IV ONE ×2 (15:45→18:15)
[2017-05-11] MEDS ORDERED: ONDANSETRON INJ 2 MG/ML 2 ML VIAL IV PRN (15:45)
[2017-05-11] MEDS ORDERED: MoRPHine SULFATE 4 MG/ML 1 ML CARP\\VIAL IV PRN (15:45)
[2017-05-11] MEDS ORDERED: DESO0.0562 TOP (16:01)
[2017-05-11] MEDS ORDERED: NVLGI/PEN SQ (16:01)
[2017-05-11 16:05] LABS: BASO % 0.4 %; BASO ABS # 0.04 K/uL (0-0.2); COMPLETE YES; EOS % 0.6 %; HEMATOCRIT 45.2 % (42-52); IG% 1.6 %; LYMPH % 22.7 %; LYMPH ABS # 2.03 K/uL (1.2-3.4); MEAN CELL VOLUME 83.7 fL (80-100); MEAN CORPUSCULAR HEMOGLOBIN 29.3 pg (25-34); MEAN PLATELET VOLUME 10.7 fL (7.4-10.4); MONO % 6.9 %; NEUT % 67.8 %; PLATELET COUNT 221 K/uL (130-400); WHITE BLOOD COUNT 8.94 K/uL (4.8-10.8)
[2017-05-11 16:32] LABS: BUN/CREATININE RATIO 14.3 (10-20); CALCIUM 9.6 mg/dl (8.5-10.1); CREATININE 0.98 mg/dl (0.60-1.40)
[2017-05-11] MEDS ORDERED: HYDROmorphone INJ 1 MG/ML SYR IV ONE (16:45)
[2017-05-11] MEDS ORDERED: LISI40TA PO (17:23)
[2017-05-11] MEDS ORDERED: DILT-121 PO (17:23)
[2017-05-11] MEDS ORDERED: INSDGI SC (17:39)
[2017-05-11] MEDS ORDERED: HYDROmorphone INJ 1 MG/ML SYR IV STA (17:49)
[2017-05-11] MEDS ORDERED: ONDA4TAB10 SL (19:16)
[2017-05-11] MEDS ORDERED: OXYC1TAB3 PO (19:16)
[2017-05-11 19:30] VITALS: BP 140/87; PULSE 75; O2SAT 98
[2017-05-11] MEDS ORDERED: ONDANSETRON HOME PACK 4MG OD TAB PO ONE (19:30)
[2017-05-11] MEDS ORDERED: OXYCODONE IR HOME PACK PO ONE (19:30)
[2017-05-11] MEDS ORDERED: GEMF600T3 PO (19:47)
[2017-05-11] MEDS ORDERED: PANT40TA2 PO (22:25)
== END 2017-05-11 20:06 | disposition home or self-care (01) ==
LOC: C.EDB 15:11 → C.EDC 20:06
DX: R10.12 Left upper quadrant pain (principal); K86.1 Other chronic pancreatitis; E11.9 Type 2 diabetes mellitus without complications; L40.9 Psoriasis, unspecified; Z79.4 Long term (current) use of insulin; Z83.3 Family history of diabetes mellitus; Z82.49 Family history of ischemic heart disease and other diseases of the circulatory system

== ENCOUNTER 2017-05-27 04:13 | Emergency (ER) | payer BC ==
[~2017-05-27] VITALS: Ht 180.3 cm; Wt 116.5 kg
[~2017-05-27 04:13] MED LIST changes: +DESO0.0562 TOP; +DILT-121 PO; +GEMF600T3 PO; -HYDR12.55 PO; +INSDGI SC; -INSPMPNVLG; +LISI40TA PO; +NVLGI/PEN SQ; +ONDA4TAB10 SL; +PANT40TA2 PO
[2017-05-27 04:16] VITALS: TEMP 36.7; Ht 180.3 cm; Wt 116.5 kg
[2017-05-27] MEDS: METOCLOPRAMIDE HCL INJ 5 MG/ML 2 ML VIAL IV STA (04:43)
[2017-05-27] MEDS: DiphenhydrAMINE HCL 50 MG/ML VIAL IV STA (04:43)
[2017-05-27] MEDS: HYDROmorphone INJ 1 MG/ML SYR IV STA (04:43)
[2017-05-27 04:50] LABS: BASO % 0.7 %; BASO ABS # 0.07 K/uL (0-0.2); COMPLETE YES; EOS % 1.8 %; HEMATOCRIT 41.4 % (42-52); IG% 3.4 %; LYMPH % 32.4 %; LYMPH ABS # 3.16 K/uL (1.2-3.4); MEAN CELL VOLUME 82.6 fL (80-100); MEAN CORPUSCULAR HEMOGLOBIN 29.3 pg (25-34); MEAN CORPUSCULAR HGB CONC 35.5 g/dl (32-36); MEAN PLATELET VOLUME 10.8 fL (7.4-10.4); MONO % 7.6 %; NEUT % 54.1 %; PLATELET COUNT 208 K/uL (130-400); RED BLOOD COUNT 5.01 M/uL (4.7-6.1); WHITE BLOOD COUNT 9.76 K/uL (4.8-10.8)
[2017-05-27 04:53] VITALS: O2SAT 97
[2017-05-27] MEDS: KETOROLAC TROMETHAMINE 30 MG/ML VIAL IV STA (05:02)
[2017-05-27] MEDS ORDERED: OXYC-57 PO (05:10)
[2017-05-27] MEDS ORDERED: LISI-725 PO (05:12)
[2017-05-27] MEDS ORDERED: NIAC500T11 PO (05:13)
[2017-05-27] MEDS ORDERED: ATOR-22 PO (05:14)
[2017-05-27 05:16] LABS: ALT/SGPT 59 U/L (12-78); AMYLASE 96 U/L (25-115); AST/SGOT 15 U/L (15-37); BLOOD UREA NITROGEN 16 mg/dl (7-18); BUN/CREATININE RATIO 11.9 (10-20); CALCIUM 9.2 mg/dl (8.5-10.1); CARBON DIOXIDE 23 mmol/L (21-32); CHLORIDE 103 mmol/L (98-107); CREATININE 1.33 mg/dl (0.60-1.40); GLUCOSE 278 mg/dl (70-99); POTASSIUM 3.7 mmol/L (3.5-5.1); SODIUM 135 mmol/L (136-145)
[2017-05-27 05:19] LABS: ALKALINE PHOSPHATASE 127 U/L (45-117)
--- NOTE | 2017-05-27 05:37 | EMERGENCY ROOM VISIT NOTE ---
History First contact with patient: 04:18 Chief Complaint: ABDOMINAL PAIN Stated Complaint: SEVERE STOMACH PAIN Nursing Triage Summary: c/o left sided abd pain which woke him from sleep. History of Present Illness The patient is a 32 year old male who presents to the Emergency Room with complaints of left upper quadrant abdominal pain for the past 2 hours described as aching, ranging in severity 8 out of 10. Nothing makes it better or worse. It does not radiate. He complains of nausea and vomiting without diarrhea. No blood or black in the vomit. He has a history of pancreatitis and symptoms of similar. He follows with Dr. Solo. No alcohol use. Gallbladder is removed. Patient denies chest pain, dyspnea, fever, chills, back pain, urinary symptoms. No injury to the area. Patient said this problem for many years now. Review of Systems See HPI for pertinent positives & negatives. A total of 10 systems reviewed and were otherwise negative. Past Medical/Surgical History Medical Problems: (1) Cholecystectomy (2) Diabetes mellitus (3) Pancreatitis (4) Psoriasis Family History Diabetes mellitus Hypertension Social History Smoking Status: Never Smoker Alcohol Use: none Drug Use: none Marital Status: in relationship Housing Status: lives with significant other Occupation Status: employed Current/Historical Medications Scheduled Atorvastatin (Lipitor), 20 MG PO HS Diltiazem Hcl Ext Rel (Tiazac), 420 MG PO QPM Gemfibrozil (Lopid), 600 MG PO BID Insulin Aspart (Novolog Flexpen), SQ ACHS Insulin Glargine (Lantus), 54 UNITS SC HS Lisinopril (Zestril), 40 MG PO BID Niacin (Niacin), 500 MG PO DIRECTED Scheduled PRN Oxycodone/Acetaminophen 5MG/325MG (Percocet 5MG/325MG), 1 TABLET PO Q6H PRN for Pain Pantoprazole (Pantoprazole Sodium), 40 MG PO DAILY PRN for GI Upset Allergies Coded Allergies: No Known Allergies (Unverified , 05/27/17) Physical Exam Vital Signs Date Time Temp Pulse Resp B/P (MAP) Pulse Ox O2 Delivery O2 Flow Rate FiO2 05/27/17 05:05 70 18 140/89 93 Room Air 05/27/17 04:53 103 20 175/108 94 Room Air 05/27/17 04:53 97 Room Air 05/27/17 04:16 36.7 113 24 167/106 97 Room Air Physical Exam VITALS: Vitals are noted on the nurse's note and reviewed by myself. Vital signs hypertensive GENERAL: Pleasant male, in no acute distress, nondiaphoretic, well-developed well-nourished. SKIN: Capillary reflex less than 2 seconds. HEENT: Normocephalic. PERRLA. EOMI. Nares patent. Mucous membranes moist. Neck is supple without nuchal rigidity. HEART: Regular rate and rhythm without murmurs gallops or rubs. LUNGS: Clear to auscultation bilaterally without wheezes, rales or rhonchi. No retractions or accessory muscle use. ABDOMEN: Positive bowel sounds x 4. Normal tympanic percussion. Soft, minimally tender left upper quadrant, no CVA tenderness, without masses or organomegaly. Luna sign negative. No guarding or rebound tenderness. MUSCULOSKELETAL: No gross musculoskeletal defects. NEURO: Patient was alert and oriented to person place and time. Normal sensation to light and sharp touch. No focal neurological deficits. Medical Decision & Procedures Laboratory Results 05/27/17 04:30 Red Blood Count 5.01, Mean Corpuscular Volume 82.6, Mean Corpuscular Hemoglobin 29.3, Mean Corpuscular Hemoglobin Concent 35.5, Mean Platelet Volume 10.8, Neutrophils (%) (Auto) 54.1, Lymphocytes (%) (Auto) 32.4, Monocytes (%) (Auto) 7.6, Eosinophils (%) (Auto) 1.8, Basophils (%) (Auto) 0.7, Neutrophils # (Auto) 5.28, Lymphocytes # (Auto) 3.16, Monocytes # (Auto) 0.74, Eosinophils # (Auto) 0.18, Basophils # (Auto) 0.07 05/27/17 04:30 Test 05/27/17 04:30 White Blood Count 9.76 K/uL (4.8-10.8) Red Blood Count 5.01 M/uL (4.7-6.1) Hemoglobin 14.7 g/dL (14.0-18.0) Hematocrit 41.4 % (42-52) Mean Corpuscular Volume 82.6 fL (80-100) Mean Corpuscular Hemoglobin 29.3 pg (25-34) Mean Corpuscular Hemoglobin Concent 35.5 g/dl (32-36) Platelet Count 208 K/uL (130-400) Mean Platelet Volume 10.8 fL (7.4-10.4) Neutrophils (%) (Auto) 54.1 % Lymphocytes (%) (Auto) 32.4 % Monocytes (%) (Auto) 7.6 % Eosinophils (%) (Auto) 1.8 % Basophils (%) (Auto) 0.7 % Neutrophils # (Auto) 5.28 K/uL (1.4-6.5) Lymphocytes # (Auto) 3.16 K/uL (1.2-3.4) Monocytes # (Auto) 0.74 K/uL (0.11-0.59) Eosinophils # (Auto) 0.18 K/uL (0-0.5) Basophils # (Auto) 0.07 K/uL (0-0.2) RDW Standard Deviation 37.2 fL (36.4-46.3) RDW Coefficient of Variation 12.5 % (11.5-14.5) Immature Granulocyte % (Auto) 3.4 % Immature Granulocyte # (Auto) 0.33 K/uL (0.00-0.02) Anion Gap 9.0 mmol/L (3-11) Est Creatinine Clear Calc Drug Dose 105.4 ml/min Estimated GFR () 82.6 Estimated GFR (Non- 71.2 BUN/Creatinine Ratio 11.9 (10-20) Calcium Level 9.2 mg/dl (8.5-10.1) Total Bilirubin 0.5 mg/dl (0.2-1) Direct Bilirubin < 0.1 mg/dl (0-0.2) Aspartate Amino Transf (AST/SGOT) 15 U/L (15-37) Alanine Aminotransferase (ALT/SGPT) 59 U/L (12-78) Alkaline Phosphatase 127 U/L (45-117) Total Protein 7.7 gm/dl (6.4-8.2) Albumin 3.7 gm/dl (3.4-5.0) Amylase Level 96 U/L (25-115) Lipase 1130 U/L (73-393) Medications Administered Medications (Trade) Dose Ordered Sig/Charisma Route Start Time Stop Time Status Last Admin Dose Admin Hydromorphone HCl (Dilaudid Inj) 1 mg NOW STAT IV 05/27/17 04:38 05/27/17 04:40 DC 05/27/17 04:43 1 MG Diphenhydramine HCl (Benadryl Inj) 12.5 mg NOW STAT IV 05/27/17 04:38 05/27/17 04:40 DC 05/27/17 04:43 12.5 MG Metoclopramide HCl (Reglan Inj) 10 mg NOW STAT IV 05/27/17 04:38 05/27/17 04:40 DC 05/27/17 04:43 10 MG Ketorolac Tromethamine (Toradol Inj) 30 mg NOW STAT IV 05/27/17 04:57 05/27/17 04:58 DC 05/27/17 05:02 30 MG ED Course Prior records/ancillary studies reviewed. Triage Nursing notes reviewed. Additional history obtained from family The patient's history was concerning for abdominal pain. Differential diagnosis: Etiologies such as acute on chronic pancreatitis, appendicitis, diverticulitis, PUD, biliary pathology, UTI, pancreatitis, obstruction, mesenteric ischemia, aortic pathology, infections, inflammatory bowel disease, renal colic, as well as others were entertained. Physical examination findings: As above. ER treatment provided: Dilaudid, Reglan, Benadryl On reassessment the patient felt better. Diagnostics interpreted by me: The labs revealed no leukocytosis. Lipase 1100. Negative amylase. Hyperglycemia without DKA Imaging studies: ULTRASOUND RIGHT UPPER QUADRANT ABDOMEN CLINICAL HISTORY: Epigastric abdominal pain. COMPARISON STUDY: Abdominal CT dated 12/20/2015. TECHNIQUE: Real-time, grayscale, and color flow sonography of the right upper quadrant of the abdomen was performed. Images are reviewed in the transverse and longitudinal planes. FINDINGS: Liver: The liver is enlarged and demonstrates heterogeneously increased echotexture consistent with severe hepatic steatosis. Note that this degrades acoustic penetration of the liver. There is no intrahepatic biliary ductal dilatation. The main portal vein is patent. Gallbladder: The gallbladder is surgically absent. The common bile duct measures up to 0.6 cm in diameter. Pancreas: Visualized portions of the pancreatic head are normal in appearance. The majority of the pancreas is not well seen. The splenic vein is patent. Right kidney: Survey images of the right kidney demonstrate normal size and echotexture. There is no hydronephrosis. Ascites: None. IMPRESSION: 1. No acute sonographic abnormality is identified in the right upper quadrant. 2. The gallbladder is surgically absent. 3. Hepatomegaly and severe hepatic steatosis Electronically signed by: Christos Herr M.D. Exam and history seem consistent with acute on chronic pancreatitis. Patient was offered admission and declined. He is requesting to go home. He had this issue for many years. Patient was advised to do a bland diet next few days and follow up with his GI doctor or family care doctor next few days. He is advised to return to the ER immediately for severe pain, fevers, vomiting, black or blood in the stool, black or blood in his emesis, worsening signs or symptoms or as needed. Patient requested for a school note and this was given to him. By the evaluation outlined above emergent etiologies such as appendicitis, diverticulitis, PUD, biliary pathology, UTI, pancreatitis, obstruction, mesenteric ischemia, aortic pathology, infections, inflammatory bowel disease, renal colic, as well as others were deemed relatively unlikely. The pt informed about the findings as listed above. All questions were answered and pleased with the treatment. Return instructions were outlined and the patient was discharged in stable condition. Referral: The patient was referred back to their primary care physician/GI for follow-up in 2 to 3 days for a recheck of the current condition. Case reviewed my attending. Medical Decision As above [place] Drug Monitoring Program Search Results: patient reviewed within database, see additional documentation (patient has chronic opiate prescriptions) Impression Primary Impression: Pancreatitis Departure Information Dispostion Home / Self-Care Condition GOOD Referrals No Doctor, Assigned (PCP) Patient Instructions [facility] Additional Instructions DO NOT drive, drink alcohol, operate machinery, or perform dangerous activities today. You were given medications in the ER that can affect your ability to safely function or operate a vehicle. Monitor your blood sugars. It was high today. Ibuprofen(Motrin, Advil) may be used for fever or pain. Use 600mg every six hours as needed. Take with food. Avoid using more than 2400mg in a 24 hour period. Do not use 2400mg per day for more than three consecutive days without physician direction. Prolonged inappropriate use can lead to stomach upset or ulcers. (AND/OR) Acetaminophen(Tylenol) may be used for fever or pain. Use 1000mg every six hours as needed. Avoid using more than 3000mg in a 24 hour period. Zofran 4mg: Take one every six hours as needed for nausea. Avoid alcohol, operating machinery or dangerous equipment, working on ladders or roofs, DRIVING , or situations where being under the influence may be dangerous. Rest and drink plenty of fluids as tolerated. Slow sips of water or sports drinks are recommended instead of large amounts all at once. Continue current medications. Once your stomach is settled start with a clear liquid diet (jello, soup broth, etc.) and then advance as tolerated. You should avoid full, heavy meals for about 24 hrs from the time your symptoms resolved. Return to the ER immediately for worsening or persistent abdominal pain, vomiting, fevers, chest pains, difficulty breathing, black or bloody stools, worsening of your condition, or as needed. Follow up with your primary physician or GI Dr. in 24 hours for a recheck of your current condition. Problem Qualifiers Primary Impression: Pancreatitis Chronicity: chronic Pancreatitis type: unspecified pancreatitis type Qualified Codes: K86.1 - Other chronic pancreatitis
[2017-05-27] MEDS: OXYCODONE IR HOME PACK PO ONE (05:45)
[2017-05-27 05:48] VITALS: BP 147/85; PULSE 84; O2SAT 94
[2017-05-28] MEDS ORDERED: OXYC-57 PO (15:59)
== END 2017-05-27 05:53 | disposition home or self-care (01) ==
LOC: C.EDB 04:14 → C.EDA 05:53
DX: K85.90 Acute pancreatitis without necrosis or infection, unspecified (principal); E11.9 Type 2 diabetes mellitus without complications; Z90.49 Acquired absence of other specified parts of digestive tract; Z79.4 Long term (current) use of insulin; Z79.899 Other long term (current) drug therapy

== ENCOUNTER 2017-05-27 08:33 | Observation (INO) | payer BC ==
[~2017-05-27] VITALS: Ht 180.3 cm; Wt 117.0 kg
[~2017-05-27 08:33] MED LIST changes: +ATOR-22 PO; +LISI-725 PO; +NIAC500T11 PO
[2017-05-27] MEDS ORDERED: SODIUM CHLORIDE 0.9% 1000ML 1,000 ML IV STA (08:51)
[2017-05-27] MEDS ORDERED: HYDROmorphone INJ 1 MG/ML SYR IV STA ×3 (08:51→13:40)
[2017-05-27] MEDS ORDERED: ONDANSETRON INJ 2 MG/ML 2 ML VIAL IV STA (08:51)
[2017-05-27 09:07] LABS: BASO % 0.2 %; BASO ABS # 0.03 K/uL (0-0.2); COMPLETE YES; EOS % 0.2 %; HEMATOCRIT 42.2 % (42-52); LYMPH % 11.1 %; LYMPH ABS # 1.58 K/uL (1.2-3.4); MEAN CELL VOLUME 81.9 fL (80-100); MEAN CORPUSCULAR HEMOGLOBIN 28.7 pg (25-34); MEAN CORPUSCULAR HGB CONC 35.1 g/dl (32-36); MEAN PLATELET VOLUME 10.9 fL (7.4-10.4); MONO % 5.3 %; NEUT % 81.2 %; PLATELET COUNT 220 K/uL (130-400); RED BLOOD COUNT 5.15 M/uL (4.7-6.1); WHITE BLOOD COUNT 14.25 K/uL (4.8-10.8)
--- NOTE | 2017-05-27 09:07 | EMERGENCY ROOM VISIT NOTE ---
History Report prepared by Rajat: Mora Larsen Under the Supervision of: Dr. Acacia Alcocer M.D. First contact with patient: 08:41 Chief Complaint: ABDOMINAL PAIN Stated Complaint: SEVERE STOMACH PAIN Nursing Triage Summary: Here a few hours ago dx with pancreatitis, pain was under control upon DC, after a few hours hours at home pain came back 10/10. History of Present Illness The patient is a 32 year old male who presents to the Emergency Room with complaints of persistent left sided abdominal pain that began prior to arrival. He currently rates his discomfort as a 10/10 in severity. The patient states that last night he was diagnosed with pancreatitis, noting that his lipase was up over 1500. He states that upon discharge his pain was under control upon discharge. The patient reports a history of diabetes. Source of History: patient Onset: prior to arrival Position: abdomen Symptom Intensity: 10/10 Timing: other (persistent) Review of Systems See HPI for pertinent positives & negatives. A total of 10 systems reviewed and were otherwise negative. Past Medical & Surgical Medical Problems: (1) Cholecystectomy (2) Diabetes mellitus (3) DKA, type 1 (4) Pancreatitis (5) Psoriasis Family History Diabetes mellitus Hypertension Social History Smoking Status: Never Smoker Alcohol Use: none Drug Use: none Marital Status: in relationship Housing Status: lives with significant other Occupation Status: employed Current/Historical Medications Scheduled Atorvastatin (Lipitor), 20 MG PO HS Diltiazem Hcl Ext Rel (Tiazac), 420 MG PO QPM Gemfibrozil (Lopid), 600 MG PO BID Insulin Aspart (Novolog Flexpen), SQ ACHS Insulin Glargine (Lantus), 54 UNITS SC HS Lisinopril (Zestril), 40 MG PO BID Niacin (Niacin), 500 MG PO DIRECTED Scheduled PRN Oxycodone/Acetaminophen 5MG/325MG (Percocet 5MG/325MG), 1 TABLET PO Q6H PRN for Pain Pantoprazole (Pantoprazole Sodium), 40 MG PO DAILY PRN for GI Upset Allergies Coded Allergies: No Known Allergies (Unverified , 05/27/17) Physical Exam Vital Signs Date Time Temp Pulse Resp B/P (MAP) Pulse Ox O2 Delivery O2 Flow Rate FiO2 05/27/17 10:18 91 18 146/93 91 Room Air 05/27/17 09:12 92 12/12/17 09:00 36.6 87 20 195/127 95 Room Air 05/27/17 08:37 36.6 101 22 181/114 92 Room Air Physical Exam Vital signs reviewed. General: Well-appearing male, who appears to be in significant discomfort. HEENT: No scleral icterus, PERRLA, neck supple. Atraumatic. Cardiovascular: Regular rate and rhythm, no extra sounds. Pulmonary: Clear to auscultation bilaterally, normal work of breathing. Abdomen: Soft, tender to epigastric region, nondistended, positive bowel sounds. Musculoskeletal: Atraumatic, no peripheral edema. Neurologic: Patient awake alert and oriented x 3 Skin: Warm, dry, no rash Medical Decision & Procedures ER Provider Diagnostic Interpretation: CT results as stated below per my review and radiologist interpretation: CT ABD/PELVIS IV CONTRAST ONLY CLINICAL HISTORY: acute on chronic pancreatitis COMPARISON STUDY: 12/20/2015 TECHNIQUE: Following the IV administration of 93 mL of Optiray-320, CT scan of the abdomen and pelvis was performed from the lung bases to the proximal femurs. Images are reviewed in the axial, sagittal, and coronal planes. IV contrast was administered without complication. A dose lowering technique was utilized adhering to the principles of ALARA. CT DOSE: 1532.45 mGy.cm FINDINGS: Lower chest: There are mild dependent atelectatic changes. Liver: There is mild hepatic steatosis. No focal masses are visualized. The portal vein appears patent. Gallbladder: Surgically absent Spleen: Normal in size and attenuation. Pancreas: There is infiltration of the peripancreatic fat, consistent with the clinical diagnosis of acute pancreatitis. There are no findings to indicate pancreatic necrosis. There is infiltration of the fat surrounding the superior mesenteric vein. There are no drainable fluid collections. Adrenal glands: Unremarkable. Kidneys: There is a solitary right kidney. No renal masses are visualized. Bowel: There are no transition zones indicate bowel obstruction. There is no acute appendicitis. The tip of the appendix is slightly bulbous, but unchanged from December 2015 Peritoneum: There is no intraperitoneal free air or abdominal ascites. Vasculature: The abdominal aorta is normal in course and caliber. Adenopathy: None. Pelvic viscera: The bladder, and pelvic viscera are unremarkable. Skeletal structures: No destructive osseous lesions are seen. There is persistent infiltration of the subcutaneous anterior abdominal wall soft tissues. IMPRESSION: 1. Infiltration of the peripancreatic fat, a finding consistent with the clinical diagnosis of acute pancreatitis. No CT evidence of pancreatic necrosis. No drainable fluid collections identified. 2. No evidence of bowel obstruction. No evidence of free air 3. Absent left kidney 4. No evidence of acute appendicitis Electronically signed by: Yung Trevizo M.D. 05/27/2017 10:21 AM Dictated Date/Time: 05/27/2017 10:12 AM Laboratory Results 05/27/17 08:59 Red Blood Count 5.15, Mean Corpuscular Volume 81.9, Mean Corpuscular Hemoglobin 28.7, Mean Corpuscular Hemoglobin Concent 35.1, Mean Platelet Volume 10.9, Neutrophils (%) (Auto) 81.2, Lymphocytes (%) (Auto) 11.1, Monocytes (%) (Auto) 5.3, Eosinophils (%) (Auto) 0.2, Basophils (%) (Auto) 0.2, Neutrophils # (Auto) 11.57, Lymphocytes # (Auto) 1.58, Monocytes # (Auto) 0.76, Eosinophils # (Auto) 0.03, Basophils # (Auto) 0.03 Test 05/27/17 08:59 05/27/17 10:35 White Blood Count 14.25 K/uL (4.8-10.8) Red Blood Count 5.15 M/uL (4.7-6.1) Hemoglobin 14.8 g/dL (14.0-18.0) Hematocrit 42.2 % (42-52) Mean Corpuscular Volume 81.9 fL (80-100) Mean Corpuscular Hemoglobin 28.7 pg (25-34) Mean Corpuscular Hemoglobin Concent 35.1 g/dl (32-36) Platelet Count 220 K/uL (130-400) Mean Platelet Volume 10.9 fL (7.4-10.4) Neutrophils (%) (Auto) 81.2 % Lymphocytes (%) (Auto) 11.1 % Monocytes (%) (Auto) 5.3 % Eosinophils (%) (Auto) 0.2 % Basophils (%) (Auto) 0.2 % Neutrophils # (Auto) 11.57 K/uL (1.4-6.5) Lymphocytes # (Auto) 1.58 K/uL (1.2-3.4) Monocytes # (Auto) 0.76 K/uL (0.11-0.59) Eosinophils # (Auto) 0.03 K/uL (0-0.5) Basophils # (Auto) 0.03 K/uL (0-0.2) RDW Standard Deviation 37.2 fL (36.4-46.3) RDW Coefficient of Variation 12.4 % (11.5-14.5) Immature Granulocyte % (Auto) 2.0 % Immature Granulocyte # (Auto) 0.28 K/uL (0.00-0.02) Nucleated RBC Absolute Count (auto) 0.02 K/uL (0-0) Nucleated Red Blood Cells % 0.1 % Lipase 3952 U/L (73-393) Beta-Hydroxybutyric Acid 4.22 mg/dL (0.2-2.81) Urine Color YELLOW Urine Appearance CLEAR (CLEAR) Urine pH 5.0 (4.5-7.5) Urine Specific [place] > 1.045 (1.000-1.030) Urine Protein 2+ (NEG) Urine Glucose (UA) 3+ (NEG) Urine Ketones NEG (NEG) Urine Occult Blood NEG (NEG) Urine Nitrite NEG (NEG) Urine Bilirubin NEG (NEG) Urine Urobilinogen NEG (NEG) Urine Leukocyte Esterase NEG (NEG) Urine WBC (Auto) 1-5 /hpf (0-5) Urine RBC (Auto) 0-4 /hpf (0-4) Urine Hyaline Casts (Auto) 1-5 /lpf (0-5) Urine Epithelial Cells (Auto) 5-10 /lpf (0-5) Urine Bacteria (Auto) NEG (NEG) Laboratory results per my review. Medications Administered Medications (Trade) Dose Ordered Sig/Charisma Route Start Time Stop Time Status Last Admin Dose Admin Sodium Chloride 1,000 ml @ 999 mls/hr Q1H1M STAT IV 05/27/17 08:51 05/27/17 09:51 DC 05/27/17 09:07 999 MLS/HR Hydromorphone HCl (Dilaudid Inj) 1 mg NOW STAT IV 05/27/17 08:51 05/27/17 08:55 DC 05/27/17 09:08 1 MG Ondansetron HCl (Zofran Inj) 4 mg NOW STAT IV 05/27/17 08:51 05/27/17 08:55 DC 05/27/17 09:07 4 MG Hydromorphone HCl (Dilaudid Inj) 1 mg NOW STAT IV 05/27/17 09:41 05/27/17 09:42 DC 05/27/17 09:53 1 MG Insulin Human Regular (novoLIN-R U-100 PER UNIT) 10 units NOW STAT SC 05/27/17 10:15 05/27/17 10:16 DC 05/27/17 10:22 10 UNITS ED Course 0851: Ordered Zofran Inj 4 mg IV, Dilaudid Inj 1 mg IV, Sodium Chloride 1000 ml @ 999 mls/hr IV. 0855: Past medical records reviewed. The patient was evaluated in room B8. A complete history and physical examination was performed. 0941: Ordered Dilaudid Inj 1 mg IV. 1015: Ordered Insulin Human Regular 10 units SC. 1030: I reevaluated the patient and he is resting. I discussed the test results with him and I discussed the treatment plan. He verbalized complete understanding and agreement. The patient will be evaluated for further treatment. 1037: I discussed the patients case with Dr. Rubio, [facility] [place]. He is going to evaluate the patient for further treatment. 1100: Per Dr. Rubio, the patient wants to leave against medical advice. 1101: I reevaluated the patient and he understands the risks of him signing out against medical advice and he wishes to continue. 1119: Per nursing staff, the patient is reconsidering staying for further treatment and evaluation. 1124: Per nursing staff the patient has decided to stay for further treatment and Dr. Rubio was re-paged for the patient. Medical Decision Differential diagnosis: Etiologies such as appendicitis, diverticulitis, PUD, biliary pathology, UTI, pancreatitis, obstruction, mesenteric ischemia, aortic pathology, infections, inflammatory bowel disease, renal colic, as well as others were entertained. This patient was evaluated and appeared to be in no significant distress. IV access was obtained and laboratory work was drawn. The patient was placed on the groundwater monitoring technician and found to be in a normal sinus rhythm. He was hydrated with normal saline solution. The patient was medicated with IV Dilaudid and Zofran. Laboratory work reveals a lipase of approximately 4000. This is elevated from several hours ago. Blood glucose is just over 400. Patient was given regular insulin 10 units subcutaneously. Patient was given additional IV Dilaudid for pain control. CT scan abdomen and pelvis was performed and reveals no evidence of fluid collection near the pancreas. Hospital medicine was consulted and evaluated the patient emergency department. He initially refused admission and requested to be discharged. Dr. Rubio and I expressed concerns related to his hyperglycemia and rising lipase. He agreed to sign out AGAINST MEDICAL ADVICE. Shortly thereafter the patient changed his mind and agreed to stay. [place] Drug Monitoring [place] Search Results: patient reviewed within database, see additional documentation Drug Monitoring Findings: The patient has had multiple prescriptions from multiple providers. Medication Reconcilliation Current Medication List: was personally reviewed by me Consults Time Called: 1032 Consulting Physician: TROY Arzate Returned Call: [phone] I discussed the patients case with TROY Arzate. He is going to evaluate the patient for further treatment. Impression Primary Impression: Acute pancreatitis Additional Impression: Hyperglycemia Scribe Attestation The scribe's documentation has been prepared under my direction and personally reviewed by me in its entirety. I confirm that the note above accurately reflects all work, treatment, procedures, and medical decision making performed by me. Departure Information Dispostion Being Evaluated By Hospitalist Referrals Ritesh Schneider M.D. (PCP) Problem Qualifiers
[2017-05-27] MEDS ORDERED: OPTIRAY 320 IV PRN (09:15)
[2017-05-27 09:30] LABS: ALKALINE PHOSPHATASE 117 U/L (45-117); ALT/SGPT 55 U/L (12-78); AST/SGOT 21 U/L (15-37); BLOOD UREA NITROGEN 18 mg/dl (7-18); BUN/CREATININE RATIO 15.2 (10-20); CALCIUM 9.4 mg/dl (8.5-10.1); CARBON DIOXIDE 20 mmol/L (21-32); CHLORIDE 101 mmol/L (98-107); CREATININE 1.19 mg/dl (0.60-1.40); GLUCOSE 402 mg/dl (70-99); SODIUM 133 mmol/L (136-145)
[2017-05-27 09:40] LABS: BETA-HYDROXYBUTYRATE 4.22 mg/dL (0.2-2.81)
[2017-05-27 09:47] LABS: POTASSIUM 4.5 mmol/L (3.5-5.1)
[2017-05-27] MEDS ORDERED: NovoLIN-R INSULIN PER UNIT CHARGE SC STA (10:15)
--- NOTE | 2017-05-27 10:23 | DIAGNOSTIC IMAGING REPORT ---
CT ABD/PELVIS IV CONTRAST ONLY CLINICAL HISTORY: acute on chronic pancreatitis COMPARISON STUDY: 12/20/2015 TECHNIQUE: Following the IV administration of 93 mL of Optiray-320, CT scan of the abdomen and pelvis was performed from the lung bases to the proximal femurs. Images are reviewed in the axial, sagittal, and coronal planes. IV contrast was administered without complication. A dose lowering technique was utilized adhering to the principles of ALARA. CT DOSE: 1532.45 mGy.cm FINDINGS: Lower chest: There are mild dependent atelectatic changes. Liver: There is mild hepatic steatosis. No focal masses are visualized. The portal vein appears patent. Gallbladder: Surgically absent Spleen: Normal in size and attenuation. Pancreas: There is infiltration of the peripancreatic fat, consistent with the clinical diagnosis of acute pancreatitis. There are no findings to indicate pancreatic necrosis. There is infiltration of the fat surrounding the superior mesenteric vein. There are no drainable fluid collections. Adrenal glands: Unremarkable. Kidneys: There is a solitary right kidney. No renal masses are visualized. Bowel: There are no transition zones indicate bowel obstruction. There is no acute appendicitis. The tip of the appendix is slightly bulbous, but unchanged from December 2015 Peritoneum: There is no intraperitoneal free air or abdominal ascites. Vasculature: The abdominal aorta is normal in course and caliber. Adenopathy: None. Pelvic viscera: The bladder, and pelvic viscera are unremarkable. Skeletal structures: No destructive osseous lesions are seen. There is persistent infiltration of the subcutaneous anterior abdominal wall soft tissues. IMPRESSION: 1. Infiltration of the peripancreatic fat, a finding consistent with the clinical diagnosis of acute pancreatitis. No CT evidence of pancreatic necrosis. No drainable fluid collections identified. 2. No evidence of bowel obstruction. No evidence of free air 3. Absent left kidney 4. No evidence of acute appendicitis Electronically signed by: Yung Trevizo M.D. 05/27/2017 10:21 AM Dictated Date/Time: 05/27/2017 10:12 AM
[2017-05-27] MEDS ORDERED: INSULIN IV INFUSION PROTOCOL STA (10:40)
[2017-05-27] MEDS ORDERED: PENDING D5 1/2NS+20mEq KCL IVF SCH (10:45)
[2017-05-27] MEDS ORDERED: ACETAMINOPHEN 325 MG TAB PO PRN (10:45)
[2017-05-27] MEDS ORDERED: DKA GOAL RANGE 150-250 mg/dl 1 EA ONE (10:45)
[2017-05-27] MEDS ORDERED: ENOXAPARIN 40 MG/0.4 ML SYR SQ SCH (10:45)
[2017-05-27] MEDS ORDERED: SEVERE STRESS LEVEL ONE (10:45)
[2017-05-27] MEDS ORDERED: PHARMACY GLYCEMIC MGMT CONSULT PRN (10:45)
[2017-05-27] MEDS ORDERED: PENDING NSS+20mEq KCL IVF SCH (10:45)
[2017-05-27] MEDS ORDERED: POLYETHYLENE (MIRALAX) 17 GM PACK PO PRN (10:45)
[2017-05-27 10:48] LABS: URINE APPEARANCE CLEAR (CLEAR); URINE BILIRUBIN NEG (NEG); URINE COLOR YELLOW; URINE NITRITE NEG (NEG); URINE SPECIFIC GRAVITY > 1.045 (1.000-1.030); UROBILINOGEN NEG (NEG); ZZUR CULT IF INDIC CLEAN CATCH NO
[2017-05-27 10:50] LABS: MANUAL MICROSCOPIC REQUIRED? NO; REVIEW REQ? NO
[2017-05-27] MEDS ORDERED: PANTOprazole SOD 40 MG TAB PO PRN (11:00)
--- NOTE | 2017-05-27 11:23 | Medical Consult ---
Consultation Date of Consultation: May 27, 2017. Attending Physician: Acacia Alcocer Reason for Consultation: Pancreatitis, DKA, evaluate for admission History of Present Illness 32 yo male with long standing, poorly controlled DM type I with recurrent episodes of pancreatitis. Patient has had a cholecystectomy but pancreatitis episodes continue. Patient started with sudden onset of abdominal pain last night. Came to the ED, at that time his lipase was 1100 and WBC was normal. Vitals relatively stable. He refused to stay and went home AMA. Returned this morning with continued abdominal pain, epigastric, poor appetite, nausea. Lipase now up to 3900 and WBC 14k. Mild tachycardia initially. Blood sugar > 400 and anion gap of 12 with HCO3 20. Given two doses of dilaudid for abdominal pain and 10 units of regular insulin. Repeat sugar 230. Asked to admit patient for acute pancreatitis and DKA. CT of the abdomen pelvis showed acute pancreatitis, no evidence of necrosis. Patient informed me that he wanted to leave. I told him that it would be AMA and he agreed to that. I informed the ED physician, see discussion below. Past Medical/Surgical History Medical Problems: (1) Acute on chronic pancreatitis Status: Acute (2) Acute on chronic pancreatitis Status: Acute (3) Acute on chronic pancreatitis Status: Acute (4) Acute on chronic pancreatitis Status: Acute (5) Acute pancreatitis Status: Acute (6) Hyperglycemia Status: Acute (7) Intractable abdominal pain Status: Acute (8) Pancreatitis, acute Status: Acute (9) Vomiting Status: Acute Family History Diabetes mellitus Hypertension Social History Smoking Status: Never Smoker Alcohol Use: none Drug Use: none Marital Status: in relationship Housing Status: lives with significant other Occupation Status: employed Allergies Coded Allergies: No Known Allergies (Unverified , 05/27/17) Current Inpatient Medications Current Inpatient Medications Medications (Trade) Dose Ordered Sig/Charisma Route Start Time Stop Time Status Last Admin Dose Admin Ioversol (Optiray 320) 125 ml UD PRN IV 05/27/17 09:15 05/31/17 09:14 UNV Enoxaparin Sodium (Lovenox Inj) 40 mg Q24H SQ 05/27/17 10:45 06/26/17 10:44 UNV Acetaminophen (Tylenol Tab) 650 mg Q4H PRN PO 05/27/17 10:45 06/26/17 10:44 UNV Polyethylene (Miralax Powder Packet) 17 gm DAILY PRN PO 05/27/17 10:45 06/26/17 10:44 UNV Insulin Aspart (novoLOG ASPART) SLIDING SCALE PCHS SC 05/27/17 13:00 06/26/17 12:59 UNV Sodium Chloride 1,000 ml @ 999 mls/hr Q1H1M ONCE IV 05/27/17 10:40 05/27/17 11:40 UNV Miscellaneous Information (PENDING NSS+20mEq KCL IVF) 1 ea Q2H N/A 05/27/17 10:45 06/26/17 10:44 UNV Miscellaneous Information (PENDING D5 1/ 2NS+20mEq KCL IVF) 1 ea Q2H N/A 05/27/17 10:45 06/26/17 10:44 UNV Miscellaneous (Insulin Protocol Dka Goal Range) 1 ea ONE ONCE N/A 05/27/17 10:45 05/27/17 10:46 UNV Insulin Human Regular (Insulin IV Infusion Protocol) 1 ea NOW STAT N/A 05/27/17 10:40 05/27/17 10:41 UNV Miscellaneous (Insulin Protocol Severe Stress) 1 ea ONE ONCE N/A 05/27/17 10:45 05/27/17 10:46 UNV Miscellaneous Information (Consult Glycemic Management Pharmacy) 1 ea UD PRN N/A 05/27/17 10:45 06/26/17 10:44 UNV Lisinopril (Zestril Tab) 40 mg BID PO 05/27/17 21:00 06/26/17 20:59 UNV Pantoprazole Sodium (Protonix Tab) 40 mg DAILY PRN PO 05/27/17 11:00 06/26/17 10:59 UNV Non-Formulary Medication (Diltiazem Hcl Ext Rel (Tiazac)) 420 mg QPM PO 05/27/17 21:00 06/26/17 20:59 UNV Review of Systems Constitutional: No fever, No chills, No sweats, No weight loss, No weakness, No fatigue, No problem reported Eyes: No worsening of vision, No eye pain, No redness, No discharge, No diplopia, No problem reported ENT: No hearing loss, No unusual epistaxis, No nasal symptoms, No sore throat, No tinnitus, No dental problems, No trouble swallowing, No problem reported Respiratory: No cough, No sputum, No wheezing, No shortness of breath, No dyspnea on exertion, No dyspnea at rest, No hemoptysis, No problem reported Cardiovascular: No chest pain, No orthopnea, No PND, No edema, No claudication , No palpitations, No problem reported Abdomen: + pain (epigastric), + nausea, No vomiting, No diarrhea, No constipation, No GI bleeding Musculoskeletal: No joint pain, No muscle pain, No swelling, No calf pain, No problem reported Genitourinary - Male: No hematuria, No dysuria, No urinary frequency, No urinary urgency Neurologic: No memory loss, No paralysis, No weakness, No numbness/tingling, No vertigo, No balance problems, No problem reported Psychiatric: No depression symptoms, No anhedonism, No anxiety, No insomnia, No substance abuse, No problem reported Endocrine: No fatigue, No excessive thirst, No excessive urination, No problem reported Hematologic / Lymphatic: No abnormal bleeding/bruising, No clotting problems, No swollen lymph nodes, No night sweats, No problem reported Integumentary: No rash, No itch, No new/changing skin lesions, No color change , No bleeding, No problem reported Allergic / Immunologic: No environmental allergies, No seasonal allergies, No pet sensitivities, No food allergies, No hives, No frequent infections, No poor healing, No prolonged convalescence, No problem reported Physical Exam Date Time Temp Pulse Resp B/P (MAP) Pulse Ox O2 Delivery O2 Flow Rate FiO2 05/27/17 10:18 91 18 146/93 91 Room Air 05/27/17 09:12 92 05/27/17 09:00 36.6 87 20 195/127 95 Room Air 05/27/17 08:37 36.6 101 22 181/114 92 Room Air General Appearance: WD/WN, no apparent distress Head: normocephalic, atraumatic Eyes: normal inspection, EOMI, sclerae normal ENT: normal ENT inspection, hearing grossly normal, pharynx normal Neck: supple, no adenopathy, no JVD, trachea midline Respiratory/Chest: chest non-tender, lungs clear, normal breath sounds, no respiratory distress, no accessory muscle use Cardiovascular: regular rate, rhythm, no edema, no gallop, no JVD, no murmur, normal peripheral pulses Abdomen/GI: normal bowel sounds, soft, no organomegaly, + tenderness ( epigastric, no rebound or rigidity) Back: normal inspection, no CVA tenderness, no muscle spasm, normal range of motion Extremities/Musculoskelatal: normal inspection, no calf tenderness, normal capillary refill, no pedal edema, normal range of motion, pelvis stable 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 Infiltration of the peripancreatic fat, a finding consistent with the clinical diagnosis of acute pancreatitis. No CT evidence of pancreatic necrosis. No drainable fluid collections identified. 2. No evidence of bowel obstruction. No evidence of free air 3. Absent left kidney 4. No evidence of acute appendicitis Last 24 Hours Test 05/27/17 08:59 05/27/17 10:35 White Blood Count 14.25 K/uL Red Blood Count 5.15 M/uL Hemoglobin 14.8 g/dL Hematocrit 42.2 % Mean Corpuscular Volume 81.9 fL Mean Corpuscular Hemoglobin 28.7 pg Mean Corpuscular Hemoglobin Concent 35.1 g/dl Platelet Count 220 K/uL Mean Platelet Volume 10.9 fL Neutrophils (%) (Auto) 81.2 % Lymphocytes (%) (Auto) 11.1 % Monocytes (%) (Auto) 5.3 % Eosinophils (%) (Auto) 0.2 % Basophils (%) (Auto) 0.2 % Neutrophils # (Auto) 11.57 K/uL Lymphocytes # (Auto) 1.58 K/uL Monocytes # (Auto) 0.76 K/uL Eosinophils # (Auto) 0.03 K/uL Basophils # (Auto) 0.03 K/uL RDW Standard Deviation 37.2 fL RDW Coefficient of Variation 12.4 % Immature Granulocyte % (Auto) 2.0 % Immature Granulocyte # (Auto) 0.28 K/uL Nucleated RBC Absolute Count (auto) 0.02 K/uL Nucleated Red Blood Cells % 0.1 % Sodium Level 133 mmol/L Potassium Level 4.5 mmol/L Chloride Level 101 mmol/L Carbon Dioxide Level 20 mmol/L Anion Gap 12.0 mmol/L Blood Urea Nitrogen 18 mg/dl Creatinine 1.19 mg/dl Est Creatinine Clear Calc Drug Dose 118.1 ml/min Estimated GFR () 94.4 Estimated GFR (Non- 81.5 BUN/Creatinine Ratio 15.2 Random Glucose 402 mg/dl Calcium Level 9.4 mg/dl Total Bilirubin 0.6 mg/dl Direct Bilirubin < 0.1 mg/dl Aspartate Amino Transf (AST/SGOT) 21 U/L Alanine Aminotransferase (ALT/SGPT) 55 U/L Alkaline Phosphatase 117 U/L Total Protein 7.7 gm/dl Albumin 3.9 gm/dl Lipase 3952 U/L Beta-Hydroxybutyric Acid 4.22 mg/dL Urine Color YELLOW Urine Appearance CLEAR Urine pH 5.0 Urine Specific Bradley > 1.045 Urine Protein 2+ Urine Glucose (UA) 3+ Urine Ketones NEG Urine Occult Blood NEG Urine Nitrite NEG Urine Bilirubin NEG Urine Urobilinogen NEG Urine Leukocyte Esterase NEG Urine WBC (Auto) 1-5 /hpf Urine RBC (Auto) 0-4 /hpf Urine Hyaline Casts (Auto) 1-5 /lpf Urine Epithelial Cells (Auto) 5-10 /lpf Urine Bacteria (Auto) NEG Assessment & Plan 32 yo male with history of recurrent bouts of acute pancreatitis and DM type I - Acute pancreatitis: evident in lipase of [address] scan, no evidence of necrosis WBC elevated at 14k advised patient that he needed to stay in the hospital for IV fluids, remain NPO, pain control discussed that we could re-evaluate him tomorrow AM and would likely be well enough to leave at that time despite advising him to stay for treatment, he wanted to go home he agreed to sign AMA paperwork - DKA: mild, anion gap 12 and HCO3 20, sugars >400 initially Cr and electrolytes stable planned to treat with insulin infusion and aggressive hydration received 10 units of regular insulin in the ED, sugar down to 230's again, advised him to stay for treatment of mild DKA and he refused signed AMA paperwork discussed case with Dr. Alcocer, we both told patient that it was our advise that he stay for treatment but he refused Additional Copies To Ritesh Schneider M.D.
--- NOTE | 2017-05-27 11:34 | History and Physical ---
History & Physical Date & Time of Service: May 27, 2017 at 11:29 Chief Complaint: Severe Stomach Pain Primary Care Physician: Ritesh Schneider M.D. History of Present Illness Source: patient, family, hospital records 32 yo male with long standing, poorly controlled DM type I with recurrent episodes of pancreatitis. Patient has had a cholecystectomy but pancreatitis episodes continue. Patient started with sudden onset of abdominal pain last night. Came to the ED, at that time his lipase was 1100 and WBC was normal. Vitals relatively stable. He refused to stay and went home AMA. Returned this morning with continued abdominal pain, epigastric, poor appetite, nausea. Lipase now up to 3900 and WBC 14k. Mild tachycardia initially. Blood sugar > 400 and anion gap of 12 with HCO3 20. Given two doses of dilaudid for abdominal pain and 10 units of regular insulin. Repeat sugar 230. Asked to admit patient for acute pancreatitis and DKA. CT of the abdomen pelvis showed acute pancreatitis, no evidence of necrosis. Patient initially wanted to leave AMA. Consult completed. Patient then changed his mind, he will stay for treatment. Past Medical/Surgical History Medical Problems: (1) Cholecystectomy Status: Resolved (2) Diabetes mellitus Status: Chronic (3) Pancreatitis Status: Chronic (4) Psoriasis Status: Chronic Family History Diabetes mellitus Hypertension Social History Smoking Status: Never Smoker Alcohol Use: none Drug Use: none Marital Status: in relationship Occupational Status: employed Allergies Coded Allergies: No Known Allergies (Unverified , 05/27/17) Home Medications Scheduled Atorvastatin (Lipitor), 20 MG PO HS Diltiazem Hcl Ext Rel (Tiazac), 420 MG PO QPM Gemfibrozil (Lopid), 600 MG PO BID Insulin Aspart (Novolog Flexpen), SQ ACHS Insulin Glargine (Lantus), 54 UNITS SC HS Lisinopril (Zestril), 40 MG PO BID Niacin (Niacin), 500 MG PO DIRECTED Scheduled PRN Oxycodone/Acetaminophen 5MG/325MG (Percocet 5MG/325MG), 1 TABLET PO Q6H PRN for Pain Pantoprazole (Pantoprazole Sodium), 40 MG PO DAILY PRN for GI Upset Review of Systems Constitutional: No fever, No chills, No sweats, No weight loss, No weakness, No fatigue, No problem reported Eyes: No worsening of vision, No eye pain, No redness, No discharge, No diplopia, No problem reported ENT: No hearing loss, No unusual epistaxis, No nasal symptoms, No sore throat, No tinnitus, No dental problems, No trouble swallowing, No problem reported Respiratory: No cough, No sputum, No wheezing, No shortness of breath, No dyspnea on exertion, No dyspnea at rest, No hemoptysis, No problem reported Cardiovascular: No chest pain, No orthopnea, No PND, No edema, No claudication , No palpitations, No problem reported Abdomen: + pain (epigastric), + nausea, No vomiting, No diarrhea, No constipation, No GI bleeding, No problem reported Musculoskeletal: No joint pain, No muscle pain, No swelling, No calf pain, No problem reported Genitourinary - Male: No hematuria, No dysuria, No urinary frequency, No urinary urgency Neurologic: No memory loss, No paralysis, No weakness, No numbness/tingling, No vertigo, No balance problems, No problem reported Psychiatric: No depression symptoms, No anhedonism, No anxiety, No insomnia, No substance abuse, No problem reported Endocrine: No fatigue, No excessive thirst, No excessive urination, No problem reported Hematologic / Lymphatic: No abnormal bleeding/bruising, No clotting problems, No swollen lymph nodes, No night sweats, No problem reported Integumentary: No rash, No itch, No new/changing skin lesions, No color change , No bleeding, No problem reported Allergic / Immunologic: No environmental allergies, No seasonal allergies, No pet sensitivities, No food allergies, No hives, No frequent infections, No poor healing, No prolonged convalescence, No problem reported Physical Exam Vital Signs Date Time Temp Pulse Resp B/P (MAP) Pulse Ox O2 Delivery O2 Flow Rate FiO2 05/27/17 10:18 91 18 146/93 91 Room Air 05/27/17 09:12 92 05/27/17 09:00 36.6 87 20 195/127 95 Room Air 05/27/17 08:37 36.6 101 22 181/114 92 Room Air General Appearance: WD/WN, no apparent distress Head: normocephalic, atraumatic Eyes: normal inspection, EOMI, sclerae normal ENT: normal ENT inspection, hearing grossly normal, pharynx normal Neck: supple, no adenopathy, no JVD, trachea midline Respiratory/Chest: chest non-tender, lungs clear, normal breath sounds, no respiratory distress, no accessory muscle use Cardiovascular: regular rate, rhythm, no edema, no gallop, no JVD, no murmur, normal peripheral pulses Abdomen/GI: normal bowel sounds, soft, no organomegaly, + tenderness ( epigastric) Back: normal inspection, no CVA tenderness, no muscle spasm, normal range of motion Extremities/Musculoskelatal: normal inspection, no calf tenderness, normal capillary refill, no pedal edema, normal range of motion, pelvis stable 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, no motor/sensory deficits, alert, normal mood/affect, normal reflexes, oriented x 3 Skin: normal color, warm/dry, no rash Diagnostics Laboratory Results Results Past 24 Hours Test 05/27/17 08:59 05/27/17 10:35 Range/Units White Blood Count 14.25 4.8-10.8 K/uL Red Blood Count 5.15 4.7-6.1 M/uL Hemoglobin 14.8 14.0-18.0 g/dL Hematocrit 42.2 42-52 % Mean Corpuscular Volume 81.9 80-100 fL Mean Corpuscular Hemoglobin 28.7 25-34 pg Mean Corpuscular Hemoglobin Concent 35.1 32-36 g/dl Platelet Count 220 130-400 K/uL Mean Platelet Volume 10.9 7.4-10.4 fL Neutrophils (%) (Auto) 81.2 % Lymphocytes (%) (Auto) 11.1 % Monocytes (%) (Auto) 5.3 % Eosinophils (%) (Auto) 0.2 % Basophils (%) (Auto) 0.2 % Neutrophils # (Auto) 11.57 1.4-6.5 K/uL Lymphocytes # (Auto) 1.58 1.2-3.4 K/uL Monocytes # (Auto) 0.76 0.11-0.59 K/uL Eosinophils # (Auto) 0.03 0-0.5 K/uL Basophils # (Auto) 0.03 0-0.2 K/uL RDW Standard Deviation 37.2 36.4-46.3 fL RDW Coefficient of Variation 12.4 11.5-14.5 % Immature Granulocyte % (Auto) 2.0 % Immature Granulocyte # (Auto) 0.28 0.00-0.02 K/uL Nucleated RBC Absolute Count (auto) 0.02 0-0 K/uL Nucleated Red Blood Cells % 0.1 % Sodium Level 133 136-145 mmol/L Potassium Level 4.5 3.5-5.1 mmol/L Chloride Level 101 98-107 mmol/L Carbon Dioxide Level 20 21-32 mmol/L Anion Gap 12.0 3-11 mmol/L Blood Urea Nitrogen 18 7-18 mg/dl Creatinine 1.19 0.60-1.40 mg/dl Est Creatinine Clear Calc Drug Dose 118.1 ml/min Estimated GFR () 94.4 Estimated GFR (Non- 81.5 BUN/Creatinine Ratio 15.2 10-20 Random Glucose 402 70-99 mg/dl Calcium Level 9.4 8.5-10.1 mg/dl Total Bilirubin 0.6 0.2-1 mg/dl Direct Bilirubin < 0.1 0-0.2 mg/dl Aspartate Amino Transf (AST/SGOT) 21 15-37 U/L Alanine Aminotransferase (ALT/SGPT) 55 12-78 U/L Alkaline Phosphatase 117 45-117 U/L Total Protein 7.7 6.4-8.2 gm/dl Albumin 3.9 3.4-5.0 gm/dl Lipase 3952 73-393 U/L Beta-Hydroxybutyric Acid 4.22 0.2-2.81 mg/dL Urine Color YELLOW Urine Appearance CLEAR CLEAR Urine pH 5.0 4.5-7.5 Urine Specific [place] > 1.045 1.000-1.030 Urine Protein 2+ NEG Urine Glucose (UA) 3+ NEG Urine Ketones NEG NEG Urine Occult Blood NEG NEG Urine Nitrite NEG NEG Urine Bilirubin NEG NEG Urine Urobilinogen NEG NEG Urine Leukocyte Esterase NEG NEG Urine WBC (Auto) 1-5 0-5 /hpf Urine RBC (Auto) 0-4 0-4 /hpf Urine Hyaline Casts (Auto) 1-5 0-5 /lpf Urine Epithelial Cells (Auto) 5-10 0-5 /lpf Urine Bacteria (Auto) NEG NEG Diagnostic Radiology CT ABD/PELVIS IV CONTRAST ONLY IMPRESSION: 1. Infiltration of the peripancreatic fat, a finding consistent with the clinical diagnosis of acute pancreatitis. No CT evidence of pancreatic necrosis. No drainable fluid collections identified. 2. No evidence of bowel obstruction. No evidence of free air 3. Absent left kidney 4. No evidence of acute appendicitis Impression Assessment and Plan 32 yo male with history of recurrent bouts of acute pancreatitis and DM type I - Acute pancreatitis: evident in lipase of [address] scan, no evidence of necrosis WBC elevated at 14k aggressive IV hydration, NPO except meds repeat lipase and CBC and LFT tomorrow AM may be able to have clears this evening if he is feeling better - DKA: mild, anion gap 12 and HCO3 20, sugars >400 initially Cr and electrolytes stable planned to treat with insulin infusion and aggressive hydration received 10 units of regular insulin in the ED, sugar down to 230's discussed with pharmacy, they will manage glucose, may not require the infusion - HTN: continue Cardizem and Lisinopril, pressures elevated in the ED - GERD: Protonix - DVT prophylaxis: low risk, early ambulation, SCD when in bed time spent on admission 35 minutes Level of Care Med/Surg VTE Prophylaxis VTE Risk Assessment Done? Y/N: Yes Risk Level: Low Given or contraindicated: SCD's Additional Copies To Ritesh Schneider M.D.
[2017-05-27] MEDS ORDERED: GLUCOSE 10 TABS/TUBE PO PRN (12:00)
[2017-05-27] MEDS ORDERED: DEXTROSE 50% 50 ML SYR IV PRN (12:00)
[2017-05-27] MEDS ORDERED: GLUCAGON FOR INJ 1 MG VIAL SQ PRN (12:00)
[2017-05-27] MEDS ORDERED: GLUCOSE 40% GEL 15 GM TUBE PO PRN (12:00)
[2017-05-27 12:16] VITALS: O2SAT 96; BMI 36.0
[2017-05-27 12:22] VITALS: O2SAT 95
[2017-05-27 12:30] LABS: MAGNESIUM 1.9 mg/dl (1.8-2.4); PHOSPHORUS 3.6 mg/dl (2.5-4.9)
[2017-05-27] MEDS ORDERED: IV FLUIDS COMPLETED PRN (12:30)
[2017-05-27] MEDS ORDERED: INSULIN ASPART 100 UNITS/ML 3 ML PEN SC SCH (13:00)
[2017-05-27] MEDS ORDERED: INFLUENZA VIRUS QUAD VACCINE 0.5 ML SYR IM. ONE (13:00)
[2017-05-27] MEDS ORDERED: INFLUENZA ADMINISTRATION CHARGE ONE (13:00)
[2017-05-27] MEDS: INSULIN ASPART 100 UNITS/ML 3 ML PEN SC SCH ×3 (13:00→17:53)
[2017-05-27 13:10] VITALS: BP 159/98; PULSE 86; TEMP 36.9; O2SAT 96
[2017-05-27] MEDS ORDERED: SODIUM CHLORIDE 0.9% 1000ML 1,000 ML IV ONE (13:30)
[2017-05-27] MEDS ORDERED: HYDROmorphone INJ 0.5 MG/0.5 ML SYR IV PRN (13:45)
[2017-05-27] MEDS ORDERED: SODIUM CHLORIDE 0.9% 1000ML 1,000 ML IV SCH (14:30)
--- NOTE | 2017-05-27 15:06 | Pharmacy Progress Note ---
Glycemic Control Intl Consult Date of Service May 27, 2017. Scope Glycemic Pharmacist consulted by Dr Noel Rubio on 05/27/17 for glycemic control and to write orders per [facility] inpatient glycemic control protocol Objective Weight (Kilograms): 117.000 Accuchecks BSG (last 24hrs): Test 05/27/17 08:59 05/27/17 13:17 Random Glucose 402 mg/dl (70-99) Bedside Glucose 101 mg/dl (70-99) Laboratory Data (last 24hrs) Test 05/27/17 08:59 Anion Gap 12.0 mmol/L BUN/Creatinine Ratio 15.2 Blood Urea Nitrogen 18 mg/dl Creatinine 1.19 mg/dl Potassium Level 4.5 mmol/L Sodium Level 133 mmol/L White Blood Count 14.25 K/uL Red Blood Count 5.15 M/uL Hemoglobin 14.8 g/dL Hematocrit 42.2 % Mean Corpuscular Volume 81.9 fL Mean Corpuscular Hemoglobin 28.7 pg Mean Corpuscular Hemoglobin Concent 35.1 g/dl Platelet Count 220 K/uL Mean Platelet Volume 10.9 fL Neutrophils (%) (Auto) 81.2 % Lymphocytes (%) (Auto) 11.1 % Monocytes (%) (Auto) 5.3 % Eosinophils (%) (Auto) 0.2 % Basophils (%) (Auto) 0.2 % Neutrophils # (Auto) 11.57 K/uL Lymphocytes # (Auto) 1.58 K/uL Monocytes # (Auto) 0.76 K/uL Eosinophils # (Auto) 0.03 K/uL Basophils # (Auto) 0.03 K/uL HbA1c 6.8% on 01/29/17 Recent Pertinent Medications Outpatient Anti-diabetic Regimen: * Lantus 54 units SQ HS (last dose 05/26/17 PM) * NovoLog per scale * Goal BSG = 120 mg/dl * CF = 20mg/dl/unit * CR = 1 unit for every 5g CHO Assessment & Plan ASSESSMENT: * 32yo Type 1 diabetic male with mild DKA, pancreatitis. * Treatment with subcutaneous rapid acting insulin analogs (NovoLog/aspart) has been shown to be an effective alternative to the use of intravenous regular insulin in the treatment of DKA. Treatment of patients with mild and moderate DKA with subcutaneous rapid-acting insulin analogs every 1 or 2 h in non intensive care unit (ICU) settings has been shown to be as safe and effective as the treatment with intravenous regular insulin in the ICU * Patient received 10 units of SQ regular insulin in the ED. BSG dropped 402 -- > 179 in about 2 hrs. BSG further dropped to 101 mg/dl upon arrival to medical floor. * Will hold off on IV insulin infusion and treat with SQ NovoLog Q2hrs until BSG < 180 x 2 (done) * Pt NPO * Outpatient dose of NovoLog seems high for a type one diabetic. May need slightly dose reduction this evening for NPO status. * Will need aggressive fluid therapy for DKA (mild) * Will start NS @ 150 ml/hr per provider and adjust based on PRP/electrolyte shifts. Pt receive 2 Liter NS bolus. * Pt with LOW BSG today at 1500 secondary to NPO, 10 units regular SQ given in ED. Changing fluids to incorporate dextrose. Agree with this plan to prevent further ketosis in type 1 diabetic patient while fasting. * Saw patient this afternoon. Pt was in a lot of pain but was able to discuss outpatient dosing of insulin. Discussed dosing of Lantus for tonight - patient said that he would administer 40 units this evening for NPO. * Agree with this dosing, patient may have some degree of insulin resistance despite type 1 diagnosis based on body weight. PLAN FOR INPATIENT GLYCEMIC CONTROL: * NovoLog per scale Q2hrs until BSG < 180 mg/dl x 2 (completed@ 1500, no additional SQ insulin was needed other than 10 units SQ regular given in ED) * Goal range 110-140 mg/dl * CF = 20 mg/dl/unit * CR = 1 unit for every 5g CHO consumed. * Basal insulin: Decrease outpatient dose for NPO. * Lantus 40 units SQ HS * Bolus insulin * NovoLog per scale ACHS or Q6hrs while NPO * Goal Range: Low 110 mg/dL - High 140 mg/dL * Correction Factor: 20 mg/dL/unit * Nutritional / Prandial insulin per carb ratio of 1 unit per 5 grams CHO consumed * Please note that the plan above was derived based on current level of insulin resistance and hospital stress. These recommendations are appropriate for inpatient admission only. Plan of care upon discharge will need to be reassessed to avoid potential outpatient hypo/hyperglycemia. Thank you.
[2017-05-27] MEDS ORDERED: NURSING VERBAL MED ORDER ONE (15:30)
[2017-05-27] MEDS: D5W AND 1/2NSS 1,000 ML IV SCH ×2 (15:33→21:55)
[2017-05-27 15:35] VITALS: BP 153/84; PULSE 82; TEMP 36.8; O2SAT 92
[2017-05-27 17:22] LABS: BUN/CREATININE RATIO 13.3 (10-20); CALCIUM 8.9 mg/dl (8.5-10.1); CREATININE 0.89 mg/dl (0.60-1.40); POTASSIUM 3.9 mmol/L (3.5-5.1)
[2017-05-27] MEDS: HYDROmorphone INJ 1 MG/ML SYR IV PRN ×2 (17:53→21:03)
[2017-05-27] MEDS ORDERED: ACETAMINOPHEN IV 650 MG in EMPTY BAG 0 ML IV PRN (20:30)
[2017-05-27] MEDS ORDERED: DILTIAZEM HCL PO SCH ×2 (21:00)
[2017-05-27] MEDS ORDERED: REL PO SCH ×2 (21:00)
[2017-05-27] MEDS ORDERED: [UNRECOGNIZED DRUG - OTHER] PO SCH (21:00)
[2017-05-27] MEDS ORDERED: INSULIN GLARGINE SOLOSTAR 100 UNITS/ML 3 ML PEN SC SCH (21:00)
[2017-05-27] MEDS: LISINOPRIL 40 MG TAB PO SCH (21:23)
[2017-05-28] MEDS: ONDANSETRON INJ 2 MG/ML 2 ML VIAL IV PRN ×2 (00:08→06:12)
[2017-05-28] MEDS: HYDROmorphone INJ 1 MG/ML SYR IV PRN ×4 (00:08→09:22)
[2017-05-28] MEDS: INSULIN ASPART 100 UNITS/ML 3 ML PEN SC SCH ×3 (00:13→12:24)
[2017-05-28 00:16] VITALS: BP 152/86; PULSE 77; TEMP 37.1; O2SAT 95
[2017-05-28] MEDS: SODIUM CHLORIDE 0.9% 1000ML 1,000 ML IV SCH ×3 (00:49→15:05)
[2017-05-28 07:16] VITALS: BP 135/75; PULSE 71; TEMP 37.3; O2SAT 93
[2017-05-28 07:42] LABS: BUN/CREATININE RATIO 8.6 (10-20); CALCIUM 8.7 mg/dl (8.5-10.1); CREATININE 0.73 mg/dl (0.60-1.40); POTASSIUM 3.6 mmol/L (3.5-5.1)
[2017-05-28] MEDS: LISINOPRIL 40 MG TAB PO SCH (07:53)
[2017-05-28 08:03] LABS: ESTIMATED AVERAGE GLUCOSE 163 mg/dl; HA1C FLAG Normal (Normal)
[2017-05-28 12:50] VITALS: Ht 180.3 cm; Wt 117.0 kg
--- NOTE | 2017-05-28 13:32 | Discharge Instructions ---
Discharge Instructions Date of Service May 28, 2017. Admission Reason for Admission: Dka, Type 1, Pancreatits Discharge Discharge Diagnosis / Problem: DKA with T1DM and Pancreatitis Discharge Goals Goal(s): Decrease discomfort, Improve function, Increase independence Activity Recommendations Activity Limitations: resume your previous activity . Instructions / Follow-Up Instructions / Follow-Up Diabetes with Acidosis: - Recommend to continue monitoring your glucose and continuing your regimen and discuss with Dr. Schneider for any changes to make sure you maintain good glucose control Pancreatitis: - Your pancreatitis may be related to your high triglyceride levels - continue your normal cholesterol medications - Recommend follow-up with Endocrine to discuss the cholesterol levels to see if these can be managed to reduce pancreatitis - Also recommend to continue following with Dr. Atkinson for ongoing evaluation and if they need to do a scope or further studies - Recommend a low fat diet to help reduce symptoms from pancreatitis. Continue to stay hydrated and use pain medication as needed. Follow-Up: "Please, follow up at Dr. Schneider's office with Maddy Mims PA-C on FridayJune 03 at 4:00 pm. *If you need to change this appointment you can call their office at . Current Hospital Diet Patient's current hospital diet: Diabetes Type 2 Diet, Low Fat Diet Discharge Diet Recommended Diet: Diabetes Type 2 Diet, Low Fat Diet Pending Studies Studies pending at discharge: no Laboratory Results Hemoglobin A1c Test 05/28/17 06:51 Range/Units Estimated Average Glucose 163 mg/dl Hemoglobin A1c 7.3 H 4.5-5.6 % Medical Emergencies . Who to Call and When: Medical Emergencies: If at any time you feel your situation is an emergency, please call 911 immediately. . Non-Emergent Contact Non-Emergency issues call your: Primary Care Provider Call Non-Emergent contact if: you have a fever, your pain is concerning you, you have any medication questions . . "Provider Documentation" section prepared by Dorys Zarco. . VTE Core Measure Inpt VTE Proph given/why not?: SCD's [place] Drug Monitoring Program Search Results: patient reviewed within database, no issues identified
[2017-05-28 14:52] VITALS: BP 145/89; PULSE 73; TEMP 36.9; O2SAT 93
[2017-05-28] MEDS ORDERED: OXYC-57 PO (15:59)
[2017-05-28 16:22] VITALS: BP 145/89; PULSE 73; TEMP 36.9; O2SAT 93
[2017-05-28] MEDS ORDERED: INSULIN ASPART 100 UNITS/ML 3 ML PEN SC SCH (16:30)
--- NOTE | 2017-05-28 16:56 | Discharge Summary ---
Discharge Summary Date of Service May 28, 2017. Discharge Summary Admission Date: May 27, 2017 at 11:28 Discharge Date: May 28, 2017 Discharge Disposition: Home Principal Diagnosis: Acute Recurrent Pancreatitis Problems/Secondary Diagnoses: 1. Type 1 DM 2. Recurrent Pancreatitis 3. Hypertriglyceridemia and Hypercholesterolemia 4. HTN 5. S/P Cholecystectomy Procedures: CT ABD/PELVIS IV CONTRAST ONLY FINDINGS: Lower chest: There are mild dependent atelectatic changes. Liver: There is mild hepatic steatosis. No focal masses are visualized. The portal vein appears patent. Gallbladder: Surgically absent Spleen: Normal in size and attenuation. Pancreas: There is infiltration of the peripancreatic fat, consistent with the clinical diagnosis of acute pancreatitis. There are no findings to indicate pancreatic necrosis. There is infiltration of the fat surrounding the superior mesenteric vein. There are no drainable fluid collections. Adrenal glands: Unremarkable. Kidneys: There is a solitary right kidney. No renal masses are visualized. Bowel: There are no transition zones indicate bowel obstruction. There is no acute appendicitis. The tip of the appendix is slightly bulbous, but unchanged from December 2015 Peritoneum: There is no intraperitoneal free air or abdominal ascites. Vasculature: The abdominal aorta is normal in course and caliber. Adenopathy: None. Pelvic viscera: The bladder, and pelvic viscera are unremarkable. Skeletal structures: No destructive osseous lesions are seen. There is persistent infiltration of the subcutaneous anterior abdominal wall soft tissues. IMPRESSION: 1. Infiltration of the peripancreatic fat, a finding consistent with the clinical diagnosis of acute pancreatitis. No CT evidence of pancreatic necrosis. No drainable fluid collections identified. 2. No evidence of bowel obstruction. No evidence of free air 3. Absent left kidney 4. No evidence of acute appendicitis Medication Reconciliation Continued Medications: Atorvastatin (Lipitor) 20 Mg Tab 20 MG PO HS, TAB Diltiazem Hcl Ext Rel (Tiazac) 420 Mg Capcr 420 MG PO QPM, CAP Gemfibrozil (Lopid) 600 Mg Tab 600 MG PO BID Insulin Aspart (Novolog Flexpen) 100 Units/Ml Inj SQ ACHS PER SLIDING SCALE CR: 1:5, CF: 20 mg/dL/unit for bsg >120 Insulin Glargine (Lantus) 100 Unit/Ml Inj 54 UNITS SC HS, VIAL Lisinopril (Zestril) 40 Mg Tab 40 MG PO BID, TAB Niacin (Niacin) 500 Mg Tab 500 MG PO DIRECTED, TAB Oxycodone/Acetaminophen 5MG/325MG (Percocet 5MG/325MG) Tab 1 TABLET PO Q6H PRN for Pain for 3 Days, #12 TAB (This prescription has been renewed) PAIN Pantoprazole (Pantoprazole Sodium) 40 Mg Tab 40 MG PO DAILY PRN for GI Upset Discharge Exam Review of Systems: Constitutional: No fever, No chills Respiratory: No shortness of breath Cardiovascular: No chest pain Abdomen: + pain (minimal - chronic element in LUQ), No nausea, No vomiting, No diarrhea, No constipation Musculoskeletal: No swelling, No calf pain Genitourinary - Male: No dysuria Hematologic / Lymphatic: No abnormal bleeding/bruising Integumentary: No rash Physical Exam: General Appearance: WD/WN, no apparent distress Eyes: sclerae normal ENT: hearing grossly normal Neck: supple, no JVD, trachea midline Respiratory/Chest: lungs clear, normal breath sounds, no respiratory distress, no accessory muscle use Cardiovascular: regular rate, rhythm, no gallop, no murmur Abdomen / GI: normal bowel sounds, non tender, soft Extremities: no calf tenderness, no pedal edema Neurologic/Psychiatric: alert, oriented x 3 Skin: normal color, warm/dry Hospital Course ADMISSION: 32 yo male with long standing, poorly controlled DM type I with recurrent episodes of pancreatitis. Patient has had a cholecystectomy but pancreatitis episodes continue. Patient started with sudden onset of abdominal pain last night. Came to the ED, at that time his lipase was 1100 and WBC was normal. Vitals relatively stable. He refused to stay and went home AMA. Returned this morning with continued abdominal pain, epigastric, poor appetite, nausea. Lipase now up to 3900 and WBC 14k. Mild tachycardia initially. Blood sugar > 400 and anion gap of 12 with HCO3 20. Given two doses of dilaudid for abdominal pain and 10 units of regular insulin. Repeat sugar 230. Asked to admit patient for acute pancreatitis and DKA. CT of the abdomen pelvis showed acute pancreatitis, no evidence of necrosis. Patient initially wanted to leave AMA. Consult completed. Patient then changed his mind, he will stay for treatment. HOSPITAL COURSE: Mr. Miranda was admitted for Recurrent Acute Pancreatitis. Suspect given his uncontrolled triglycerides and cholesterol affecting his chronic pancreatitis. Likely a familial condition given levels while on statin therapy, niacin, gemfibrozil, and fish oil supplements. Pain is currently resolved but reports he has an element of chronic LUQ pain. His diet was advanced and he is tolerating a low fat diet. Upon admission his glucose was > 400 with a mild anion gap. With insulin therapy his gap closed but ultimately resulted in hypoglycemia. Discussed possibility of following up with endocrinology for his triglycerides/cholesterol in setting of pancreatitis. Also recommend to continue follow-up with GI as patient mentions there is question of sphincter of Oddi dysfunction. Patient is afebrile and tolerating solid diet and will be D/C'd home with PCP follow-up. i personally examined pt and verified all ball points w A Haroldo PAC feeling better wants to go home vitals noted nad breathing unlabored no epigastric ttp no guarding no rebound recurrent acute pancreatitis - while ddx is broad strongly suspect TG's play a role - d/w pt critical need for endocrine follow up given high TG despite multiple meds and adherence to them (and do not suspect "silent' noncompliance given his DM control is overall quite good) -stable for home, endocrine f/u, GI f/u Total Time Spent: Greater than 30 minutes This includes examination of the patient, discharge planning, medication reconciliation, and communication with other providers. Discharge Instructions Please refer to the electronic Patient Visit Report (Discharge Instructions) for additional information. Additional Copies To Ritesh Schneider M.D.; Maddy Mims PA
== END 2017-05-28 17:02 | disposition home or self-care (01) ==
LOC: C.EDB 08:34 → C.MS2W 11:28 → EDBEDREQ 11:57 → ENRESERV 12:00
PROVIDERS: ADMIT Internal Medicine; ATTEND Family Medicine
DX: K85.90 Acute pancreatitis without necrosis or infection, unspecified (principal); E11.65 Type 2 diabetes mellitus with hyperglycemia; E78.1 Pure hyperglyceridemia; E78.00 Pure hypercholesterolemia, unspecified; I10 Essential (primary) hypertension; Z90.49 Acquired absence of other specified parts of digestive tract; Z79.899 Other long term (current) drug therapy; Z79.4 Long term (current) use of insulin; Z79.82 Long term (current) use of aspirin; Z83.3 Family history of diabetes mellitus; Z82.49 Family history of ischemic heart disease and other diseases of the circulatory system

== ENCOUNTER → 2017-08-11 | Outpatient (CLI) | payer BC ==
[~2017-08-11] MED LIST changes: -DESO0.0562 TOP; -LISI-725 PO; -ONDA4TAB10 SL; -OXYC1TAB3 PO
[2017-08-11 17:21] LABS: BASO % 0.4 %; BASO ABS # 0.03 K/uL (0-0.2); EOS ABS # 0.08 K/uL (0-0.5); HEMATOCRIT 39.2 % (42-52); HEMOGLOBIN 13.6 g/dL (14.0-18.0); IG# 0.07 K/uL (0.00-0.02); LYMPH ABS # 2.79 K/uL (1.2-3.4); MEAN CELL VOLUME 82.2 fL (80-100); MEAN CORPUSCULAR HEMOGLOBIN 28.5 pg (25-34); MEAN CORPUSCULAR HGB CONC 34.7 g/dl (32-36); MEAN PLATELET VOLUME 11.4 fL (7.4-10.4); MONO % 6.6 %; MONO ABS # 0.53 K/uL (0.11-0.59); NEUT % 56.1 %; NEUT ABS # 4.47 K/uL (1.4-6.5); PLATELET COUNT 249 K/uL (130-400); RED CELL DISTRIBUTION WIDTH CV 12.4 % (11.5-14.5); RED CELL DISTRIBUTION WIDTH SD 37.3 fL (36.4-46.3); WHITE BLOOD COUNT 7.97 K/uL (4.8-10.8)
[2017-08-11 17:50] LABS: ALT/SGPT 34 U/L (12-78); AST/SGOT 20 U/L (15-37); BLOOD UREA NITROGEN 12 mg/dl (7-18); CALCIUM 9.1 mg/dl (8.5-10.1); CARBON DIOXIDE 24 mmol/L (21-32); CREATININE 0.85 mg/dl (0.60-1.40); GLUCOSE 75 mg/dl (70-99); POTASSIUM 3.8 mmol/L (3.5-5.1); SODIUM 140 mmol/L (136-145)
[2017-08-11 17:53] LABS: LDL CHOLESTEROL (DIRECT) 60 mg/dl
[2017-08-12 06:53] LABS: HEMOGLOBIN A1C 7.4 % (4.5-5.6)
== END | disposition home or self-care (01) ==
LOC: C.LAB1850 15:44
PROVIDERS: ATTEND Physician Assistant
DX: I10 Essential (primary) hypertension (principal); E78.5 Hyperlipidemia, unspecified; E11.9 Type 2 diabetes mellitus without complications

== ENCOUNTER 2020-01-29 08:39 | Inpatient (IN) ==
[2020-01-29] MEDS ORDERED: ONDANSETRON INJ 2 MG/ML 2 ML VIAL IV STA (08:52)
[2020-01-29] MEDS ORDERED: HYDROmorphone INJ 1 MG/ML SYRINGE IV STA ×3 (08:52→11:01)
[2020-01-29] MEDS ORDERED: SODIUM CHLORIDE 0.9% 1000ML 1,000 ML IV SCH ×2 (08:53→09:00)
--- NOTE | 2020-01-29 09:09 | Emergency Department Note ---
History of Present Illness General Chief complaint: Abdominal Pain Stated complaint: PANCREATITIS Time Seen by Provider: 01/29/20 08:47 History of Present Illness Maximum Pain Intensity: 9 Patient is a 34-year-old male with past medical history significant for hypertension, dyslipidemia, diabetes, chronic recurrent pancreatitis, congenital solitary kidney, psoriasis, GERD, who returns to the emergency department for evaluation of epigastric pain that started 2 days ago. He was seen and evaluated here by myself yesterday. Work-up revealed a slightly elevated lipase. He was treated with IV fluids and pain medications, and ultimately was feeling better and wanted to try to manage his episode at home. Patient reports that he felt well when he left here yesterday, he notes that he did develop sugar when he got home and it was in the 140s, and he gave himself some insulin for this. He is not really had anything to eat, has been drinking water. His pain increased around midnight, roughly 9 hours ago, and worsened despite taking Percocet. He returns now with same complaints, noting epigastric and left upper quadrant pain that he around rates a 9/10. Nausea secondary to pain without vomiting. No diarrhea. No chest pain. Patient has multiple frequent episodes of pancreatitis. 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 He states that his last episode was 2 weeks ago which he managed at home, the last episode which required evaluation in the emergency department was in the fall 2018. He follows with Dr. Solo of GI. He is status post cholecystectomy. Home Medications Home Medications Medication Instructions Recorded Confirmed Type adalimumab [Humira Pen] 40 mg SUBCUT Q14D 04/11/19 01/29/20 History atorvastatin 40 mg PO QPM 04/11/19 01/29/20 History lisinopril 40 mg PO BID 04/11/19 01/29/20 History pantoprazole 40 mg PO QAM 04/27/19 01/29/20 History insulin glargine 100 unit/mL (3 54 units SQ HS #15 ml 08/26/19 01/29/20 Rx mL) subcutaneous pen gemfibrozil 600 mg tablet 600 mg PO BID #60 tab 11/12/19 01/29/20 Rx insulin aspart U-100 100 unit/mL See Rx Instructions .ROUTE 01/13/20 01/29/20 Rx (3 mL) subcutaneous pen .COMPLEX #45 ml diltiazem HCl 420 mg capsule,24 420 mg PO QPM #90 cap 01/24/20 01/29/20 Rx hr,extended release oxycodone-acetaminophen [Percocet] 1 - 2 tab PO Q6H PRN #15 tab 01/28/20 01/29/20 Rx Allergies Allergy/AdvReac Type Severity Reaction Status Date / Time No Known Allergies Allergy Unverified 01/29/20 09:01 Past Med/Surg History Medical History (Updated 01/29/20 @ 12:27 by Anali Blevins) Congenital absence of kidney Diabetes type I dx age 11 History of pancreatitis recurrent; thought 2nd to hypertriglyceridemia; follows with Dr Tali Amaro GI; autoimmune work-up negative. Hypertension Hypertriglyceridemia Psoriasis Small bowel obstruction patient denies such Surgical History (Updated 01/29/20 @ 11:02 by Ritesh Gomez) Hx of cholecystectomy Family History (Updated 01/29/20 @ 11:03 by Ritesh Gomez) Mother No pertinent past medical history Father Diabetes type 2 Myocardial infarction Social History (Updated 01/29/20 @ 11:04 by Ritesh Gomez) Smoking Status: Never smoker Hx Alcohol Use: No Hx Substance Use: No Preferred Language: Maldivian marital status: Current Living Situation: Spouse current occupational status: employed current occupation: teacher - [employer] How many Children do You have: 0 other: lives in [place] with Feels Safe at Home: Yes Review of Systems A total of 10 systems reviewed and were otherwise negative Physical Exam Vital Signs Vital Signs - 24 hr 01/29/20 08:42 01/29/20 09:14 01/29/20 09:17 Temperature 36.8 C Temperature Source Oral Pulse Rate 106 H 88 90 Pulse Rate from SpO2 Sensor 88 90 Respiratory Rate 22 19 17 Blood Pressure 196/123 H 191/115 H Blood Pressure Mean 147 142 Pulse Oximetry 93 86 L 86 L Oxygen Delivery Method Room Air Oxygen Flow Rate Sepsis Recent Fever Within 48 Hours No Sepsis New/Unexplained Change in Mental Status No Sepsis Action Taken by Nursing No Action Required 01/29/20 09:28 01/29/20 09:30 01/29/20 09:31 Temperature Temperature Source Pulse Rate 85 92 H 101 H Pulse Rate from SpO2 Sensor 86 90 101 H Respiratory Rate 17 15 25 H Blood Pressure 179/97 H 167/92 H Blood Pressure Mean 108 118 Pulse Oximetry 90 88 L 90 Oxygen Delivery Method Oxygen Flow Rate Sepsis Recent Fever Within 48 Hours Sepsis New/Unexplained Change in Mental Status Sepsis Action Taken by Nursing 01/29/20 10:00 01/29/20 10:01 01/29/20 11:01 Temperature Temperature Source Pulse Rate 81 75 80 Pulse Rate from SpO2 Sensor 81 75 Respiratory Rate 19 18 23 Blood Pressure 157/93 H Blood Pressure Mean 118 Pulse Oximetry 93 94 95 Oxygen Delivery Method Nasal Cannula Oxygen Flow Rate 2 Sepsis Recent Fever Within 48 Hours Sepsis New/Unexplained Change in Mental Status Sepsis Action Taken by Nursing 01/29/20 11:28 01/29/20 11:44 Temperature Temperature Source Pulse Rate 84 77 Pulse Rate from SpO2 Sensor Respiratory Rate 18 20 Blood Pressure 177/121 H 183/116 H Blood Pressure Mean 139 127 Pulse Oximetry 94 94 Oxygen Delivery Method Nasal Cannula Nasal Cannula Oxygen Flow Rate 2 2 Sepsis Recent Fever Within 48 Hours Sepsis New/Unexplained Change in Mental Status Sepsis Action Taken by Nursing CONSTITUTIONAL: Patient is an uncomfortable appearing obese 34-year-old male who is awake and alert and laying semiupright on the gurney holding of abdomen. He is noted to be hypertensive and tachycardic in triage. EYES: Pupils equal, round, reactive to light and accommodation. EOMs intact without nystagmus. Sclera are anicteric. ENT: Tympanic membranes intact, with normal landmarks. External canals are clear. Oral and nasopharynx are clear. Mucous membranes are moist, no lesions, tongue and gums appear normal. CARDIOVASCULAR: Regular rate and rhythm, with normal S1 and S2, no murmur or gallop or rub is heard. No carotid bruits auscultated. No JVD. Peripheral pulses easily palpable. RESPIRATORY: Breath sounds equal and clear to auscultation without wheezes, rales, or rhonchi heard. Full and equal chest expansion without accessory muscle use or retractions. ABDOMEN: Bowel sounds are present. Abdomen is soft, obese, slightly tender to palpation in the epigastric region without guarding or rebound. He has soft tissue swelling in the right upper quadrant with multiple puncture berg co nsistent with his insulin administration. There is no erythema, increased warmth or induration. No cellulitic changes. INTEGUMENTARY: No lesions or rash, normal skin turgor. LYMPH: No lymphadenopathy. Course Course The patient was seen and assessed as above. Old records were reviewed. I am familiar with him from his ED visit yesterday. History and presentation were reviewed with attending physician. IV lock was initiated, laboratory studies were collected. EKG was performed and patient was placed on a front desk monitor. He was medicated with Zofran 4 mg and Dilaudid 1 mg IV. He was hydrated with normal saline solution. CBC with differential, CMP and lipase were collected. Fingerstick BSG was 232. Nursing staff contacted me roughly 15 to 20 minutes after the patient had received the first milligram of Dilaudid, stating that he had wrong and the pain medication had not helped. He was given a 1 mg of Dilaudid IV. This did help to alleviate his pain, rating it a 5/10 on a recheck. Blood pressure also responded nicely. He did drop his O2 sats slightly however into the upper 80s and was placed on 2 L of nasal cannula oxygen. Laboratory studies today noted a white count of 11,400, down from 13,000 yesterday. Left shift and bandemia noted. Coags are normal. Electrolytes and renal functions are within normal limits. Total bilirubin is slightly elevated today at 1.5, transaminases are normal. Lipase is elevated at 1322, increased from 670 yesterday. [id number] troponin is negative x1. EKG is as noted below. Laboratory studies were reviewed with the patient, and discussed with attending physician. CT of the pancreas was ordered. Patient and his were made aware that the plan was to send him over for CT. He was given an additional Dilaudid 0.5 mg IV at this time. Consultation with the [facility] was placed. Patient was reviewed with Dr. Gomez for admission/observation. Please refer to admitting H&P and orders for further information. CT of the pancreas noted peripancreatic edema consistent with acute interstitial pancreatitis, no evidence for necrosis or significant peripancreatic fluid collections. Administered Medications Sodium Chloride (Nss 1000ml) 1,000 mls @ 250 mls/hr IV .Q4H [facility] Stop: 02/28/20 08:59 Last Admin: 01/29/20 11:20 Dose: Not Given Documented by: [id number] Lactated Ringer's (Lr) 1,000 mls @ 250 mls/hr IV .Q4H [facility] Stop: 02/28/20 11:14 Last Admin: 01/29/20 11:26 Dose: 250 mls/hr Documented by: [id number] Discontinued Medications Hydromorphone HCl (Hydromorphone Inj 1 Mg/Ml Syringe) 1 mg IV NOW STA Stop: 01/29/20 08:53 Last Admin: 01/29/20 09:10 Dose: 1 mg Documented by: [id number] Hydromorphone HCl (Hydromorphone Inj 1 Mg/Ml Syringe) 1 mg IV NOW STA Stop: 01/29/20 09:22 Last Admin: 01/29/20 09:26 Dose: 1 mg Documented by: [id number] Hydromorphone HCl (Hydromorphone Inj 0.5 Mg/0.5 Ml Syr) 0.5 mg IV NOW STA Stop: 01/29/20 10:16 Last Admin: 01/29/20 10:24 Dose: 0.5 mg Documented by: [id number] Hydromorphone HCl (Hydromorphone Inj 1 Mg/Ml Syringe) 1 mg IV NOW STA Stop: 01/29/20 11:02 Last Admin: 01/29/20 11:09 Dose: 1 mg Documented by: [id number] Sodium Chloride (Nss 1000ml) 1,000 mls @ 999 mls/hr IV .Q1H1M [facility] Stop: 01/29/20 09:53 Last Infusion: 01/29/20 11:09 Dose: 0 mls/hr Documented by: [id number] Admin: 01/29/20 09:08 Dose: 999 mls/hr Documented by: [id number] Ioversol (Ioversol 100ml) 94 ml IV ONCE ONE Stop: 01/29/20 10:45 Last Admin: 01/29/20 10:44 Dose: 94 ml Documented by: [id number] Ondansetron HCl (Ondansetron Inj 2 Mg/Ml 2 Ml Vial) 4 mg IV NOW STA Stop: 01/29/20 08:53 Last Admin: 01/29/20 09:08 Dose: 4 mg Documented by: [id number] Medical Decision Making Differential Diagnosis Differential diagnoses entertained included GERD, gastritis, esophagitis, peptic ulcer disease, perforated ulcer, acute pancreatitis, choledocholithiasis, bowel obstruction, perforation, infectious versus inflammatory colitis/enteritis, infection, pseudocyst, among others. Medical Records Attestation: I reviewed the patient's medical records. Home Medications Current Medication List: was personally reviewed by me Laboratory Data Attestation: I reviewed the patient's lab results. Result diagrams: 01/29/20 09:00 01/29/20 09:00 Lab Results 01/29/20 01/29/20 01/29/20 Range/Units 09:00 09:00 09:00 WBC 11.42 H (4.8-10.8) K/uL RBC 5.28 (4.7-6.1) M/uL Hgb 15.1 (14.0-18.0) g/dL Hct 43.3 (42-52) % MCV 82.0 (80-100) fL MCH 28.6 (25-34) pg MCHC 34.9 (32-36) g/dL RDW Std Deviation 37.7 (36.4-46.3) fL RDW Coeff of Marianne 12.5 (11.5-14.5) % Plt Count 226 (130-400) K/uL MPV 11.3 H (7.4-10.4) fL Immature Gran % (Auto) 0.8 % Neut % (Auto) 77.4 % Lymph % (Auto) 11.4 % Dooly % (Auto) 9.8 % Eos % (Auto) 0.4 % Baso % (Auto) 0.2 % Neut # (Auto) 8.84 H (1.4-6.5) K/uL Lymph # (Auto) 1.30 (1.2-3.4) K/uL D[place]y # (Auto) 1.12 H (0.11-0.59) K/uL Eos # (Auto) 0.05 (0-0.5) K/uL Baso # (Auto) 0.02 (0-0.2) K/uL Immature Gran # (Auto) 0.09 H (0.00-0.02) K/uL PT 10.3 (9.0-12.0) Seconds INR 1.0 (0.9-1.1) APTT 26.5 (21.0-31.0) Seconds PTT Ratio 0.9 Sodium 136 (136-145) mmol/L Potassium 4.5 (3.5-5.1) mmol/L Chloride 103 (98-107) mmol/L Carbon Dioxide 26 (21-32) mmol/L Anion Gap 7.0 (3-11) BUN 12 (7-18) mg/dl Creatinine 1.10 (0.6-1.4) mg/dl Est Cr Clr Drug Dosing 50.2 ml/min Est GFR ( Amer) 102.4 Est GFR (Non-Af Amer) 88.4 BUN/Creatinine Ratio 10.5 (10-20) Glucose 224 H (70-99) mg/dl POC Glucose (70-99) mg/dl Calcium 9.4 (8.5-10.1) mg/dl Magnesium (1.8-2.4) mg/dl Total Bilirubin 1.5 H D (0.2-1) mg/dl AST 35 (15-37) U/L ALT 74 (12-78) U/L Alkaline Phosphatase 109 (45-117) U/L POC Troponin I (0-0.045) ng/ml Total Protein 7.6 (6.4-8.2) gm/dl Albumin 3.7 (3.4-5.0) gm/dl Globulin 3.9 (2.5-4.0) gm/dl Albumin/Globulin Ratio 1.0 (0.9-2) Lipase 1322 H (73-393) U/L 01/29/20 01/29/20 01/29/20 Range/Units 09:00 09:06 09:08 WBC (4.8-10.8) K/uL RBC (4.7-6.1) M/uL Hgb (14.0-18.0) g/dL Hct (42-52) % MCV (80-100) fL MCH (25-34) pg MCHC (32-36) g/dL RDW Std Deviation (36.4-46.3) fL RDW Coeff of Marianne (11.5-14.5) % Plt Count (130-400) K/uL MPV (7.4-10.4) fL Immature Gran % (Auto) % Neut % (Auto) % Lymph % (Auto) % Dooly % (Auto) % Eos % (Auto) % Baso % (Auto) % Neut # (Auto) (1.4-6.5) K/uL Lymph # (Auto) (1.2-3.4) K/uL Dooly # (Auto) (0.11-0.59) K/uL Eos # (Auto) (0-0.5) K/uL Baso # (Auto) (0-0.2) K/uL Immature Gran # (Auto) (0.00-0.02) K/uL PT (9.0-12.0) Seconds INR (0.9-1.1) APTT (21.0-31.0) Seconds PTT Ratio Sodium (136-145) mmol/L Potassium (3.5-5.1) mmol/L Chloride (98-107) mmol/L Carbon Dioxide (21-32) mmol/L Anion Gap (3-11) BUN (7-18) mg/dl Creatinine (0.6-1.4) mg/dl Est Cr Clr Drug Dosing ml/min Est GFR ( Amer) Est GFR (Non-Af Amer) BUN/Creatinine Ratio (10-20) Glucose (70-99) mg/dl POC Glucose 232 H (70-99) mg/dl Calcium (8.5-10.1) mg/dl Magnesium 1.9 (1.8-2.4) mg/dl Total Bilirubin (0.2-1) mg/dl AST (15-37) U/L ALT (12-78) U/L Alkaline Phosphatase (45-117) U/L POC Troponin I < 0.03 (0-0.045) ng/ml Total Protein (6.4-8.2) gm/dl Albumin (3.4-5.0) gm/dl Globulin (2.5-4.0) gm/dl Albumin/Globulin Ratio (0.9-2) Lipase (73-393) U/L 01/29/20 Range/Units 11:38 WBC (4.8-10.8) K/uL RBC (4.7-6.1) M/uL Hgb (14.0-18.0) g/dL Hct (42-52) % MCV (80-100) fL MCH (25-34) pg MCHC (32-36) g/dL RDW Std Deviation (36.4-46.3) fL RDW Coeff of Marianne (11.5-14.5) % Plt Count (130-400) K/uL MPV (7.4-10.4) fL Immature Gran % (Auto) % Neut % (Auto) % Lymph % (Auto) % Dooly % (Auto) % Eos % (Auto) % Baso % (Auto) % Neut # (Auto) (1.4-6.5) K/uL Lymph # (Auto) (1.2-3.4) K/uL D[place]y # (Auto) (0.11-0.59) K/uL Eos # (Auto) (0-0.5) K/uL Baso # (Auto) (0-0.2) K/uL Immature Gran # (Auto) (0.00-0.02) K/uL PT (9.0-12.0) Seconds INR (0.9-1.1) APTT (21.0-31.0) Seconds PTT Ratio Sodium (136-145) mmol/L Potassium (3.5-5.1) mmol/L Chloride (98-107) mmol/L Carbon Dioxide (21-32) mmol/L Anion Gap (3-11) BUN (7-18) mg/dl Creatinine (0.6-1.4) mg/dl Est Cr Clr Drug Dosing ml/min Est GFR ( Amer) Est GFR (Non-Af Amer) BUN/Creatinine Ratio (10-20) Glucose (70-99) mg/dl POC Glucose 306 H* (70-99) mg/dl Calcium (8.5-10.1) mg/dl Magnesium (1.8-2.4) mg/dl Total Bilirubin (0.2-1) mg/dl AST (15-37) U/L ALT (12-78) U/L Alkaline Phosphatase (45-117) U/L POC Troponin I (0-0.045) ng/ml Total Protein (6.4-8.2) gm/dl Albumin (3.4-5.0) gm/dl Globulin (2.5-4.0) gm/dl Albumin/Globulin Ratio (0.9-2) Lipase (73-393) U/L Imaging Data Attestation: I personally reviewed and interpreted this imaging study as follows: Radiologist's Impression: CT pancreas 3-phase wo/w con CT DOSE: 3552.64 mGy.cm CLINICAL HISTORY: PANCREATITIS TECHNIQUE: Unenhanced images were obtained through the upper abdomen. The patient then scanned in a dynamic helical fashion during administration of 94 cc of Optiray 320. Arterial phase and portal venous phase images were acquired.. A dose lowering technique was utilized adhering to the principles of ALARA. COMPARISON STUDY: 04/27/2019 FINDINGS: There are mild basilar atelectatic changes. There is severe hepatic steatosis. No focal hepatic masses are visualized. The portal and hepatic veins appear patent. The gallbladder is surgically absent. No splenic masses are visualized. There is peripancreatic edema consistent with acute interstitial pancreatitis. There is no evidence of pancreatic necrosis. There are no significant peripancreatic fluid collections. No adrenal lesions are visualized. No left kidney is visualized. There is persistent infiltration of the subcutaneous fat of the right anterior abdominal wall. This finding was present on the preceding study. It is of uncertain etiology and needs to be correlated clinically. IMPRESSION: 1. Hepatic steatosis 2. Peripancreatic edema consistent with acute interstitial pancreatitis. No evidence of pancreatic necrosis. No significant peripancreatic fluid collections 3. Surgically absent gallbladder 4. Absent left kidney 5. Persistent right anterior abdominal wall swelling with infiltration of the subcutaneous fat. ECG Data Attestation: I personally reviewed and interpreted this ECG as follows: Indication: + abdominal pain and + other (hypertension) Rate (beats per minute): 88 Rhythm: + normal sinus ECG Intervals/blocks: + Normal QRS and + Normal QT ECG Champion: + Normal ECG ST segments: + Normal ST segments Comparison ECG Date: from (04/2019) Change: no significant change Prescription Drug Monitoring [place] Drug Monitoring Program reviewed and findings noted below (Regular Percocet prescriptions from PCP's office) Blood Pressure Blood Pressure Findings: Elevated blood pressure Blood Pressure Disposition: further management by hospitalist MDM Narrative See ED Course. Impression & Plan Acute pancreatitis Discharge Plan Visit Data Chief Complaint: Abdominal Pain Stated Complaint: PANCREATITIS ED Provider: [facility] Midlevel Provider: Anali Blevins Discharge Problem: Acute pancreatitis Patient Disposition: Admitted As Inpatient Discharge Instructions Interventions: ED Discharge Assessment Last Done: 01/29/20 11:54 Forms Stand Alone Forms: [employer] Prescriptions Prescriptions: No Action Lantus Solostar U-100 Insulin 100 unit/mL (3 mL) insulin pen 54 units SQ HS Qty: 15 RF: 11 gemfibrozil 600 mg tablet 600 mg PO BID Qty: 60 RF: 2 diltiazem HCl 420 mg capsule,extended release 24 hr 420 mg PO QPM Qty: 90 RF: 1 Novolog Flexpen U-100 Insulin 100 unit/mL (3 mL) insulin pen See Rx Instructions .ROUTE .COMPLEX Qty: 45 RF: 11 pantoprazole 40 mg tablet,delayed release (DR/EC) 40 mg PO QAM RF: 0 Humira Pen 40 mg/0.8 mL Pen Injector Kit 40 mg SUBCUT Q14D RF: 0 atorvastatin 40 mg tablet 40 mg PO QPM RF: 0 lisinopril 40 mg tablet 40 mg PO BID RF: 0 oxycodone-acetaminophen [Percocet] 5-325 mg tablet 1 - 2 tab PO Q6H PRN (Reason: pain) Qty: 15 RF: 0 Referrals Referrals: Ritesh Schneider MD [Primary Care Provider] - Discharge Problem: Acute pancreatitis Qualifiers: Pancreatitis type: unspecified pancreatitis type Acute pancreatitis complication: no infection or necrosis Qualified Code(s): K85.90 - Acute pancreatitis without necrosis or infection, unspecified
[2020-01-29 09:30] LABS: Albumin Level 3.7 gm/dl (3.4-5.0); BUN Creatinine Ratio 10.5 (10-20); Calcium 9.4 mg/dl (8.5-10.1); Creatinine Clr Calc Pharmacy 50.2 ml/min; Est GFR (African American) 102.4; Est GFR (Non-African American) 88.4; Potassium 4.5 mmol/L (3.5-5.1)
[2020-01-29 09:36] LABS: Bilirubin,Total 1.5 mg/dl (0.2-1); Globulin 3.9 gm/dl (2.5-4.0); Total Protein 7.6 gm/dl (6.4-8.2)
[2020-01-29 09:52] LABS: Basophils # (auto) 0.02 K/uL (0-0.2); Basophils % (auto) 0.2 %; Eosinophils # (auto) 0.05 K/uL (0-0.5); Eosinophils % (auto) 0.4 %; Hematocrit (blood only) 43.3 % (42-52); Hemoglobin 15.1 g/dL (14.0-18.0); Immature Granulocytes # (auto) 0.09 K/uL (0.00-0.02); Immature Granulocytes % (auto) 0.8 %; Lymphocytes % (auto) 11.4 %; Mean Corpuscular Hemoglobin 28.6 pg (25-34); Mean Corpuscular Hgb Conc 34.9 g/dL (32-36); Mean Platelet Volume 11.3 fL (7.4-10.4); Monocytes # (auto) 1.12 K/uL (0.11-0.59); Monocytes % (auto) 9.8 %; Neutrophils # (auto) 8.84 K/uL (1.4-6.5); Neutrophils % (auto) 77.4 %; Platelet Count 226 K/uL (130-400); RDW Coefficient of Variation 12.5 % (11.5-14.5); RDW Standard Deviation 37.7 fL (36.4-46.3); Red Blood Count 5.28 M/uL (4.7-6.1); White Blood Count 11.42 K/uL (4.8-10.8)
[2020-01-29 09:53] LABS: Partial Thromboplastin Ratio 0.9; Partial Thromboplastin Time 26.5 Seconds (21.0-31.0); Prothrombin Time 10.3 Seconds (9.0-12.0)
[2020-01-29] MEDS ORDERED: HYDROmorphone INJ 0.5 MG/0.5 ML SYR IV STA ×2 (10:15→21:20)
--- NOTE | 2020-01-29 10:37 | History & Physical Report ---
Date of Service January 29, 2020 Assessment & Plan (1) Acute pancreatitis: By history his recurrent pancreatitis is 2nd to hypertriglyceridemia. He has been worked up for autoimmune pancreatitis and by report tested negative. Triglycerides have been as high as 800 per patient. I cannot find an MRCP in our system to check for pancreatic divisum but I am going to assume he has had such at some point in the past given the high frequency of his pancreatitis. He does not drink etoh. He is s/p cholecystectomy state without evidence for CBD abnormalities on imaging. Imaging does not show calcifications to suggest chronic pancreatitis, and he has normal exocrine function (no symptoms of pancreatic insufficiency). He is on high-dose lisinopril -- JAVIER can cause pancreatitis. It may be worthwhile to change him to ARB. Plan - * LR at 250cc/hr * IV dilaudid 1mg q4h prn; watch for sedation and respiratory depression given his obesity and probable undiagnosed DOMINGO * anti-emetics * repeat lipase AM * check triglycerides in AM; if high will need additional treatment beyond gemfibrozil Check with [facility] to see if MRCP has been done in the past, perhaps as outpatient at [facility] facility. (2) Hypertriglyceridemia: Check lipid profile in am. Continue gemfibrozil. Add additional triglyceride lowering agent (e.g. prescription fish oil, niacin, etc) if >400. (3) Chronic recurrent pancreatitis: See discussion above in "acute pancreatitis." (4) Diabetes type I: Given NPO status and to prevent DKA will institute insulin infusion. Pharmacy glycemic consult for assistance. Check a1c in am. (5) Congenital absence of kidney: Noted. Renal function is normal today. BMP in am for stability. (6) Psoriasis: On humira chronically. no evidence of psoriatic arthritis. (7) Snoring: Needs outpatient sleep study. Caution with IV narcotics & respiratory depression. Narcan prn ordered for bedside. (8) Hypoxia: Has transient hypoxia in ER following dilaudid pushes. This is likely due to narcotics in presence of probable undiagnosed DOMINGO. Patient counseled we will need to be judicious with the use of narcotics IV. Narcan prn to bedside. Check cxr 2-view to ensure no other acute process. (9) Hypertension: Continue diltiazem. Continue lisinopril but consider change to ARB as JAVIER can cause pancreatitis. Hydralazine IV prn. Suspect acute BP elevations 2nd to severe abdominal pain. Place on telemetry. (10) DVT prophylaxis: lovenox 40mg daily updated at bedside History of Present Illness Chief Complaint: abdominal pain Primary Care Provider: Ritesh Schneider MD 34yo male with Type 1 DM and recurrent pancreatitis who presents with persistent upper abdominal pain since evening. Has had nausea but no vomiting. No fever. Has not been able to eat solids but has been taking sips of fluids. He visited the ER yesterday for the same symptoms - treated with IVF and pain meds; then d/c home. He has occasional minor flares of pancreatitis that he treats conservatively at home. Has pain meds for those episodes. BSGs last 48 hours - 140s to 180s. Insulin regimen - 54 units; novolog - carb ratio 1:5. Correction factor - 20. Allergies Allergy/AdvReac Type Severity Reaction Status Date / Time No Known Allergies Allergy Unverified 01/29/20 09:01 Home Medications Home Medications Medication Instructions Recorded Confirmed Type adalimumab [Humira Pen] 40 mg SUBCUT Q14D 04/11/19 01/29/20 History atorvastatin 40 mg PO QPM 04/11/19 01/29/20 History lisinopril 40 mg PO BID 04/11/19 01/29/20 History pantoprazole 40 mg PO QAM 04/27/19 01/29/20 History insulin glargine 100 unit/mL (3 54 units SQ HS #15 ml 08/26/19 01/29/20 Rx mL) subcutaneous pen gemfibrozil 600 mg tablet 600 mg PO BID #60 tab 11/12/19 01/29/20 Rx insulin aspart U-100 100 unit/mL See Rx Instructions .ROUTE 01/13/20 01/29/20 Rx (3 mL) subcutaneous pen .COMPLEX #45 ml diltiazem HCl 420 mg capsule,24 420 mg PO QPM #90 cap 01/24/20 01/29/20 Rx hr,extended release oxycodone-acetaminophen [Percocet] 1 - 2 tab PO Q6H PRN #15 tab 01/28/20 01/29/20 Rx Past Med/Surg History Medical History (Updated 01/29/20 @ 11:47 by Ritesh Gomez) Congenital absence of kidney Diabetes type I dx age 11 History of pancreatitis recurrent; thought 2nd to hypertriglyceridemia; follows with Dr Tali Amaro GI; autoimmune work-up negative. Hypertension Hypertriglyceridemia Psoriasis Small bowel obstruction patient denies such Surgical History (Updated 01/29/20 @ 11:02 by Ritesh Gomez) Hx of cholecystectomy Family History (Updated 01/29/20 @ 11:03 by Ritesh Gomez) Mother No pertinent past medical history Father Diabetes type 2 Myocardial infarction Social History (Updated 01/29/20 @ 11:04 by Ritesh Gomez) Smoking Status: Never smoker Hx Alcohol Use: No Hx Substance Use: No Preferred Language: Telugu marital status: Current Living Situation: Spouse current occupational status: employed current occupation: teacher - [employer] - [employer] How many Children do You have: 0 other: lives in [place] with Feels Safe at Home: Yes Review of Systems Constitutional: + anorexia; no fever, no chills and no weight loss Eyes: no worsening vision Ear, Nose, Mouth, Throat: no nasal congestion, no sore throat and no dysphagia no loss of taste or smell Respiratory: + snoring (severe - per ); no cough and no dyspnea Cardiovascular: no chest pain and no edema Gastrointestinal: + abdominal pain and + nausea; no vomiting, no diarrhea/loose stools and no blood in stools Genitourinary: no dysuria Musculoskeletal: no back pain, no swelling and no myalgia Integumentary: + rash (psoriasis ) Neurologic: no loss of sensation Psychiatric: + anxiety; no depression Endocrine: no cold intolerance and no heat intolerance Hematologic / Lymphatic: no easy bleeding and no easy bruising Allergy / Immunological: no seasonal rhinorrhea Physical Exam Constitutional: + acute distress (uncomfortable - due to pain ) and + obese; no altered mental status Eyes: + anicteric sclerae and PERRL ENMT: Ears: no TM abnormality Mouth: + dry oral mucous membranes; no oropharynx abnormality Neck: trachea midline, no thyromegaly Respiratory: normal respiratory effort, lungs clear to auscultation Cardiovascular: Rate/Rhythm: regular rate and regular rhythm Heart Sounds: normal S1 and normal S2; no murmur Vessels: posterior tibial pulses present and dorsalis pedis pulses present; no JVD Extremities: no edema Gastrointestinal (Abdomen): Inspection/Auscultation: normal bowel sounds Percussion/Palpation: + abdomen tender (epigastric region - mild ), abdomen soft and + abdominal mass (RUQ - due to fatty hypertrophy from insulin injections ); no guarding and no hepatosplenomegaly Musculoskeletal: no cyanosis or clubbing, extremities motor strength 5/5 Skin: + rash (scattered psoriasis patches on arms, umbilicus, etc) Neurologic: deep tendon reflexes 2+ bilaterally and moves all extremities; no focal motor deficits Psychiatric: A+Ox3, euthymic affect Lymphatic: no cervical lymphadenopathy Results & Data Results & Data ([facility]) Vital Signs (Past 12 Hours) Vital Signs Temp Pulse Resp BP Pulse Ox 01/29/20 09:31 101 H 25 H 90 01/29/20 09:30 92 H 15 167/92 H 88 L 01/29/20 09:28 85 17 179/97 H 90 01/29/20 09:17 90 17 86 L 01/29/20 09:14 88 19 191/115 H 86 L 01/29/20 08:42 36.8 C 106 H 22 196/123 H 93 Laboratory Results Laboratory Results - last 24 hr 01/29/20 01/29/20 01/29/20 09:00 09:00 09:00 WBC 11.42 H RBC 5.28 Hgb 15.1 Hct 43.3 MCV 82.0 MCH 28.6 MCHC 34.9 RDW Std Deviation 37.7 RDW Coeff of Marianne 12.5 Plt Count 226 MPV 11.3 H Immature Gran % (Auto) 0.8 Neut % (Auto) 77.4 Lymph % (Auto) 11.4 [place] % (Auto) 9.8 Eos % (Auto) 0.4 Baso % (Auto) 0.2 Neut # (Auto) 8.84 H Lymph # (Auto) 1.30 [place] # (Auto) 1.12 H Eos # (Auto) 0.05 Baso # (Auto) 0.02 Immature Gran # (Auto) 0.09 H PT 10.3 INR 1.0 APTT 26.5 PTT Ratio 0.9 Sodium 136 Potassium 4.5 Chloride 103 Carbon Dioxide 26 Anion Gap 7.0 BUN 12 Creatinine 1.10 Est Cr Clr Drug Dosing 50.2 Est GFR ( Amer) 102.4 Est GFR (Non-Af Amer) 88.4 BUN/Creatinine Ratio 10.5 Glucose 224 H POC Glucose Calcium 9.4 Total Bilirubin 1.5 H D AST 35 ALT 74 Alkaline Phosphatase 109 POC Troponin I Total Protein 7.6 Albumin 3.7 Globulin 3.9 Albumin/Globulin Ratio 1.0 Lipase 1322 H 01/29/20 01/29/20 09:06 09:08 WBC RBC Hgb Hct MCV MCH MCHC RDW Std Deviation RDW Coeff of Marianne Plt Count MPV Immature Gran % (Auto) Neut % (Auto) Lymph % (Auto) [place] % (Auto) Eos % (Auto) Baso % (Auto) Neut # (Auto) Lymph # (Auto) [place] # (Auto) Eos # (Auto) Baso # (Auto) Immature Gran # (Auto) PT INR APTT PTT Ratio Sodium Potassium Chloride Carbon Dioxide Anion Gap BUN Creatinine Est Cr Clr Drug Dosing Est GFR ( Amer) Est GFR (Non-Af Amer) BUN/Creatinine Ratio Glucose POC Glucose 232 H Calcium Total Bilirubin AST ALT Alkaline Phosphatase POC Troponin I < 0.03 Total Protein Albumin Globulin Albumin/Globulin Ratio Lipase Diagnostic Findings CT pancreas - IMPRESSION: 1. Hepatic steatosis 2. Peripancreatic edema consistent with acute interstitial pancreatitis. No evidence of pancreatic necrosis. No significant peripancreatic fluid collections 3. Surgically absent gallbladder 4. Absent left kidney 5. Persistent right anterior abdominal wall swelling with infiltration of the subcutaneous fat. EKG - my reading - NSR, no ST changes Code Status & VTE Plan Code Status full code VTE Prophylaxis Plan VTE Prophylaxis will be ordered: Yes PG Care Time/CCT Total # of Minutes Spent Total Time Spent with Patient: Total time spent is greater than 50% in coordination of care (as documented) at patient's floor/unit and/or counseling patient: Coding Level of Care Code 81726 Initial Inpt Care Lvl 3 Diagnoses Acute pancreatitis K85.90 Acute pancreatitis complication: no infection or necrosis Pancreatitis type: unspecified pancreatitis type Hypertriglyceridemia E78.1 Chronic recurrent pancreatitis K86.1 Diabetes type I E10.9 Diabetes mellitus complication status: without complication Congenital absence of kidney Q60.2 Psoriasis L40.9 Snoring R06.83 Hypoxia R09.02 Hypertension I10 Hypertension type: essential hypertension DVT prophylaxis Z29.9 (1) Diabetes type I Diabetes mellitus complication status: without complication Qualified Code(s): E10.9 - Type 1 diabetes mellitus without complications (2) Acute pancreatitis Acute pancreatitis complication: no infection or necrosis Pancreatitis type: unspecified pancreatitis type Qualified Code(s): K85.90 - Acute pancreatitis without necrosis or infection, unspecified (3) Hypertension Hypertension type: essential hypertension Qualified Code(s): I10 - Essential (primary) hypertension
[2020-01-29] MEDS ORDERED: IOVERSOL 100ml IV ONE (10:44)
--- NOTE | 2020-01-29 11:06 | CT Scan Report ---
CT pancreas 3-phase wo/w con CT DOSE: 3552.64 mGy.cm CLINICAL HISTORY: PANCREATITIS TECHNIQUE: Unenhanced images were obtained through the upper abdomen. The patient then scanned in a d ynamic helical fashion during administration of 94 cc of Optiray 320. Arterial phase and portal venou s phase images were acquired.. A dose lowering technique was utilized adhering to the principles of ALARA. COMPARISON STUDY: 04/27/2019 FINDINGS: There are mild basilar atelectatic changes. There is severe hepatic steatosis. No focal hepatic masses are visualized. The portal and hepatic vei ns appear patent. The gallbladder is surgically absent. No splenic masses are visualized. There is peripancreatic edema consistent with acute interstitial pancreatitis. There is no evidence of pancreatic necrosis. There are no significant peripancreatic fluid collection s. No adrenal lesions are visualized. No left kidney is visualized. There is persistent infiltration of the subcutaneous fat of the right anterior abdominal wall. This f inding was present on the preceding study. It is of uncertain etiology and needs to be correlated cli nically. IMPRESSION: 1. Hepatic steatosis 2. Peripancreatic edema consistent with acute interstitial pancreatitis. No evidence of pancreatic ne crosis. No significant peripancreatic fluid collections 3. Surgically absent gallbladder 4. Absent left kidney 5. Persistent right anterior abdominal wall swelling with infiltration of the subcutaneous fat. ACT 112: Negative or not required by law. Electronically signed by: Yung Trevizo M.D. 01/29/2020 11:04 AM
[2020-01-29] MEDS: LACTATED RINGER'S 1,000 ML IV SCH ×4 (11:26→23:07)
[2020-01-29] MEDS ORDERED: MODERATE STRESS LEVEL ONE (11:45)
[2020-01-29] MEDS ORDERED: INSULIN PROTOCOL GOAL RANGE ONE (11:45)
[2020-01-29] MEDS ORDERED: PHARMACY GLYCEMIC MGMT CONSULT STA (11:45)
--- NOTE | 2020-01-29 12:13 | XRay Report ---
XR chest 2V PA/lateral CLINICAL HISTORY: hypoxia, desaturation, eval pneumonia COMPARISON STUDY: 01/17/2015 FINDINGS: There is suboptimal inspiration. The heart is at the upper limits of normal in size. There is no failure. There is no focal pulmonary consolidation. There are no pleural effusions.[ IMPRESSION: No active disease in the chest. ACT 112: Negative or not required by law. Electronically signed by: Yung Trevizo M.D. 01/29/2020 12:11 PM
[2020-01-29] MEDS ORDERED: PHARMACY GLYCEMIC MGMT CONSULT PRN (12:15)
[2020-01-29] MEDS: INSULIN REGULAR 250 UNITS in SODIUM CHLORIDE 0.9% 247.5 ML IV SCH (12:25)
[2020-01-29] MEDS ORDERED: DEXTROSE 50% 50 ML SYRINGE IV PRN (12:30)
[2020-01-29] MEDS ORDERED: GLUCOSE 40% GEL 15 GM TUBE PO PRN (12:30)
[2020-01-29] MEDS ORDERED: CARBOHYDRATES FOR HYPOGLYCEMIA PO PRN (12:30)
[2020-01-29] MEDS ORDERED: GLUCOSE 10 TABS/TUBE PO PRN (12:30)
[2020-01-29] MEDS ORDERED: GLUCAGON FOR INJ 1 MG VIAL IM PRN (12:30)
[2020-01-29] MEDS ORDERED: NovoLIN-R BOLUS FROM BAG IV ONE (12:30)
[2020-01-29] MEDS ORDERED: NALOXONE HCL 0.4 MG/1 ML VIAL/CARP IV PRN (12:59)
[2020-01-29] MEDS ORDERED: HYDROmorphone INJ 1 MG/ML SYRINGE IV PRN (12:59)
[2020-01-29] MEDS ORDERED: INSULIN ASPART 100 UNITS/ML 3 ML PEN SC SCH (12:59)
[2020-01-29] MEDS ORDERED: DC ALL PREVIOUSLY ORDERED DIABETES MEDS ONE (12:59)
[2020-01-29] MEDS ORDERED: HydrALAZINE HCL 20 MG/ML VIAL IV PRN (12:59)
[2020-01-29] MEDS ORDERED: ONDANSETRON INJ 2 MG/ML 2 ML VIAL IV PRN (12:59)
--- NOTE | 2020-01-29 14:16 | Pharmacy Report ---
Glycemic Control Consultation - Date of Service January 29, 2020 - Scope Scope: Glycemic Pharmacist consulted for glycemic control and to write orders per [facility] inpatient glycemic control protocol. - Objective Weight: 121 kg Accuchecks BSG (last 24hrs): 01/29/20 01/29/20 01/29/20 09:00 09:06 11:38 Glucose 224 H POC Glucose 232 H 306 H* 01/29/20 01/29/20 12:26 13:24 Glucose POC Glucose 317 H* 266 H Laboratory Data (last 24hrs): 01/29/20 09:00 Potassium 4.5 Carbon Dioxide 26 Anion Gap 7.0 Creatinine 1.10 Est Cr Clr Drug Dosing 50.2 - Recent Pertinent Medications Outpatient Anti-diabetic Regimen: * Lantus 54 units QHS, novolog * A1c = pending Risk Factors for Insulin Resistance: * Diet: npo - Assessment & Plan Assessment & Plan: ASSESSMENT: * 34 year old admitted with acute pancreatitis. Hx of recurrent pancreatitis secondary to hypertriglyceridemia. PMHx significant for type 1 diabetes, congenital absence of kidney. Pharmacy consulted for glycemic management * Spoke with provider and prefer management with insulin infusion to help prevent DKA, as patient likely NPO for a couple days * Insulin infusion initiated at moderate stress/goal 110-180 mg/dL. Continue insulin drip PLAN FOR INPATIENT GLYCEMIC CONTROL: * Continuing IV insulin infusion per moderate stress protocol * Goal Range 110 - 180 mg/dl * In the critical care setting, continuous IV insulin infusion has been shown to be the best method for achieving glycemic targets. * Please note that the plan above was derived based on current level of insulin resistance and hospital stress. These recommendations are appropriate for inpatient admission only. Plan of care upon discharge will need to be reassessed to avoid potential outpatient hypo/hyperglycemia. Thank you.
[2020-01-29] MEDS: PANTOprazole 40 MG in SYRINGE 0 ML IV SCH (15:01)
[2020-01-29] MEDS: ENOXAPARIN INJ 40 MG/0.4 ML SYR SQ SCH (15:01)
[2020-01-29] MEDS: INSULIN ASPART 100 UNITS/ML 3 ML PEN SC SCH ×2 (16:27→20:41)
[2020-01-29] MEDS: HYDROmorphone INJ 1 MG/ML SYRINGE IV PRN ×2 (16:37→19:33)
[2020-01-29] MEDS: lisinopriL 40 MG TAB PO SCH (18:22)
[2020-01-29] MEDS: gemfibroziL 600 MG TAB PO SCH (19:33)
[2020-01-29] MEDS ORDERED: dilTIAZem ER 180 MG CAPCR PO SCH (21:00)
[2020-01-29] MEDS ORDERED: dilTIAZem ER 120 MG CAPCR PO SCH (21:00)
--- NOTE | 2020-01-29 21:44 | Communication Note ---
Date of Service: January 29, 2020 Patient had the following in the past through [facility] system -- 1. MRI abdomen 07/05/2016 - fatty liver, pancreatic atrophy, pancreatic duct wnl. 2. EUS 03/2016 - normal ampulla, normal CBD, findings concerning for chronic pancreatitis. 3. MRCP was completed in 05/2016 but actual report not found. Ritesh Gomez MD
[2020-01-30] MEDS: HYDROmorphone INJ 1 MG/ML SYRINGE IV PRN ×3 (00:09→06:19)
[2020-01-30] MEDS: LACTATED RINGER'S 1,000 ML IV SCH ×4 (03:20→16:06)
[2020-01-30 08:14] LABS: BUN Creatinine Ratio 6.8 (10-20); Creatinine Clr Calc Pharmacy 189.6 ml/min; Est GFR (African American) 142.2; Est GFR (Non-African American) 122.7; Potassium 3.5 mmol/L (3.5-5.1)
--- NOTE | 2020-01-30 08:23 | Pharmacy Report ---
Pharmacy Glycemic Short Note 2 - Date of Service January 30, 2020 - Glycemic Short BSG Results (Last 24 hours): 01/29/20 01/29/20 01/29/20 09:00 09:06 11:38 Glucose 224 H POC Glucose 232 H 306 H* 01/29/20 01/29/20 01/29/20 12:26 13:24 14:13 Glucose POC Glucose 317 H* 266 H 249 H 01/29/20 01/29/20 01/29/20 15:24 16:22 17:36 Glucose POC Glucose 214 H 214 H 212 H 01/29/20 01/29/20 01/29/20 18:23 19:32 20:44 Glucose POC Glucose 215 H 203 H 181 H 01/29/20 01/30/20 01/30/20 23:03 00:12 01:15 Glucose POC Glucose 183 H 231 H 282 H 01/30/20 01/30/20 01/30/20 02:14 03:09 04:30 Glucose POC Glucose 248 H 246 H 162 H 01/30/20 01/30/20 01/30/20 05:29 06:22 06:53 Glucose 160 H POC Glucose 209 H 167 H 01/30/20 07:35 Glucose POC Glucose 151 H Outpatient Anti-diabetic Regimen: * Lantus 54 units QHS, novolog SSI - CR 1:4, CF of 1 unit for every 20 above 120 mg/dL * A1c = pending ASSESSMENT: 01/29: * Continues on insulin infusion this AM - BSGs improving this morning. Insulin drip rate running at 4.2 units/hr. Surprisingly high rate, despite NPO status. * BSGs improving, anticipate drip rate to start to decrease / will schedule basal based upon avg gtt rate ~3.5 units/hr - give ~80 units of Lantus for now to help with drip transition. Plan to add scale for HS if BSGs trending up * Spoke with patient over the phone and admits he has not been to PCP for awhile. States his BSGs in the morning are always elevated >200s. States that some days he goes through an entire novolog pen (300 units). Likely will need follow up outpatient for adjustments in regimen. PLAN FOR INPATIENT GLYCEMIC CONTROL: * Continuing IV insulin infusion per moderate stress protocol * Goal Range 110 - 180 mg/dl * In the critical care setting, continuous IV insulin infusion has been shown to be the best method for achieving glycemic targets. * Basal insulin - started this AM to help aide in drip transition. Will schedule Lantus HS scale if BSGs trending up. Will utilize set CR that patient uses at home as clears started now * Please note that the plan above was derived based on current level of insulin resistance and hospital stress. These recommendations are appropriate for inpatient admission only. Plan of care upon discharge will need to be reassessed to avoid potential outpatient hypo/hyperglycemia. Thank you. PLAN FOR DISCHARGE: * TBD - A1c pending
[2020-01-30] MEDS: INSULIN ASPART 100 UNITS/ML 3 ML PEN SC SCH ×2 (08:58→12:17)
[2020-01-30] MEDS: gemfibroziL 600 MG TAB PO SCH (09:43)
[2020-01-30] MEDS: lisinopriL 40 MG TAB PO SCH (09:43)
[2020-01-30] MEDS ORDERED: INSULIN GLARGINE 100 UNIT/ML VIAL SC ONE (10:15)
[2020-01-30] MEDS: PANTOprazole 40 MG in SYRINGE 0 ML IV SCH (11:11)
[2020-01-30] MEDS: ENOXAPARIN INJ 40 MG/0.4 ML SYR SQ SCH (13:41)
[2020-01-30] MEDS: INSULIN REGULAR 250 UNITS in SODIUM CHLORIDE 0.9% 247.5 ML IV SCH (15:13)
--- NOTE | 2020-01-30 16:40 | Discharge Summary ---
Date of Service January 30, 2020 Admission HPI Per Admitting Provider 34yo male with Type 1 DM and recurrent pancreatitis who presents with persistent upper abdominal pain since evening. Has had nausea but no vomiting. No fever. Has not been able to eat solids but has been taking sips of fluids. He visited the ER yesterday for the same symptoms - treated with IVF and pain meds; then d/c home. He has occasional minor flares of pancreatitis that he treats conservatively at home. Has pain meds for those episodes. BSGs last 48 hours - 140s to 180s. Insulin regimen - 54 units; novolog - carb ratio 1:5. Correction factor - 20. Principal Diagnosis Pancreatitis Discharge Exam Constitutional WD/WN, vitals as above Eyes EOM intact bilaterally; no conjunctival abnormality ENMT external ear and nose normal, oropharynx normal Neck trachea midline, no thyromegaly normal visual inspection Respiratory normal respiratory effort, lungs clear to auscultation no respiratory distress Cardiovascular RRR, no murmur, no edema Gastrointestinal (Abdomen) Inspection/Auscultation: abdomen normal to inspection; abdomen not distended Musculoskeletal no cyanosis or clubbing, extremities motor strength 5/5 Skin no rashes, warm and dry Neurologic moves all extremities and awake Psychiatric Orientation: alert, oriented to person and cooperative Discharge Data Allergies Allergy/AdvReac Type Severity Reaction Status Date / Time No Known Allergies Allergy Unverified 01/29/20 09:01 Consultations 01/29/20 10:39 ED Decision to Admit Stat Ordered Studies 01/29/20 10:05 CT pancreas 3-phase wo/w con Stat Hospital Course (1) Acute pancreatitis: By history his recurrent pancreatitis is 2nd to hypertriglyceridemia. He has been worked up for autoimmune pancreatitis and by report tested negative. Triglycerides have been as high as 800 per patient. I cannot find an MRCP in our system to check for pancreatic divisum but I am going to assume he has had such at some point in the past given the high frequency of his pancreatitis. He does not drink etoh. He is s/p cholecystectomy state without evidence for CBD abnormalities on imaging. Imaging does not show calcifications to suggest chronic pancreatitis, and he has normal exocrine function (no symptoms of pancreatic insufficiency). He is on high-dose lisinopril -- JAVIER can cause pancreatitis. It may be worthwhile to change him to ARB. Did well very quickly and requested discharge on 01/29. He tolerated diet well. Discharged on short course of oxycodone with GI follow up with his usual GI doctor (Dr. Solo) on Friday and PCP (Dr. Schneider) on Friday. (2) Diabetes type I: Given NPO status and to prevent DKA will institute insulin infusion. Check a1c in am -> Not back at discharge. -> Would benefit from endocrinology referral potentially. He uses 54 units of long-acting, but upwards of 300 units per day of Novolog (an entire pen) sometimes. No recent A1c. Given the imbalance, he may need to increase his long- acting and decrease his sliding scale. (3) Hypertriglyceridemia: Check lipid profile in am. -> Triglyerides still 700. Continue gemfibrozil. Add additional triglyceride lowering agent (e.g. prescription fish oil, niacin, etc) if >400. (4) Chronic recurrent pancreatitis: See discussion above in "acute pancreatitis." (5) Congenital absence of kidney: Noted. Renal function is normal today. BMP in am for stability. (6) Psoriasis: On humira chronically. no evidence of psoriatic arthritis. (7) Snoring: Needs outpatient sleep study. Caution with IV narcotics & respiratory depression. Narcan prn ordered for bedside. (8) Hypoxia: Has transient hypoxia in ER following dilaudid pushes. This is likely due to narcotics in presence of probable undiagnosed DOMINGO. Patient counseled we will need to be judicious with the use of narcotics IV. Narcan prn to bedside. Check cxr 2-view to ensure no other acute process. (9) Hypertension: Continue diltiazem. Continue lisinopril but consider change to ARB as JAVIER can cause pancreatitis. Hydralazine IV prn. Suspect acute BP elevations 2nd to severe abdominal pain. Place on telemetry. (10) DVT prophylaxis: lovenox 40mg daily Total Time Total Time Spent Total Time Spent (In Minutes): 35 Discharge Plan Discharge Items Patient Disposition: Home - Self-Care Reason For Visit: ACUTE/CHRONIC PANCREATITIS Discharge Diagnosis: Pancreatitis Activity: Resume your previous activity Non-emergency contact: Primary Care Provider and Cutting Machine Tender Call non-emergency contact if: your symptoms worsen Follow-up/Referrals: Ritesh Schneider MD [Primary Care Provider] - Diet: Low Fat Addtl Attending Provider Instructions: You were admitted to the hospital with pancreatitis which is not new for you. Fortunately, your pain improved rapidly with IV fluids and not eating. Please follow up with Dr. Solo in his office on Friday to be sure you are recovering and with Dr. Schneider on Friday. We do think your basal (long-acting) insulin needs to be higher. Our calculations indicated about 80 units of long-acting insulin, but you wanted to go prior to us really titrating your insulin well. Please follow up on Friday with Dr. Schneider about your insulin dosing and please consider seeing an laundry operator finishing to help adjust your dosing. Ideally, you wouldn't be using so much sliding scale insulin and better balance your basal-bolus dosing. Please don't hesitate to return to the hospital if you have worsening abdominal pain. Pending Studies at Discharge: No Stand-Alone Forms: My [facility] [employer], Smoking Cessation Medications and DC Order Prescriptions: New oxycodone-acetaminophen 5-325 mg tablet 1 tab PO Q6H PRN (Reason: pain) Qty: 14 RF: 0 Continued Lantus Solostar U-100 Insulin 100 unit/mL (3 mL) insulin pen 54 units SQ HS Qty: 15 RF: 11 gemfibrozil 600 mg tablet 600 mg PO BID Qty: 60 RF: 2 diltiazem HCl 420 mg capsule,extended release 24 hr 420 mg PO QPM Qty: 90 RF: 1 Novolog Flexpen U-100 Insulin 100 unit/mL (3 mL) insulin pen See Rx Instructions .ROUTE .COMPLEX Qty: 45 RF: 11 pantoprazole 40 mg tablet,delayed release (DR/EC) 40 mg PO QAM RF: 0 Humira Pen 40 mg/0.8 mL Pen Injector Kit 40 mg SUBCUT Q14D RF: 0 atorvastatin 40 mg tablet 40 mg PO QPM RF: 0 lisinopril 40 mg tablet 40 mg PO BID RF: 0 Discharge Orders: Discharge Order (Routine); Ordered 01/30/20 Ordered By: Jose Fulton Admission Data Admit Date/Time: 01/29/20 10:36 Attending Provider: Jose Fulton Admit Provider: Ritesh Gomez Primary Care Provider: Ritesh Schneider Other Providers: Jose Fulton Coding Level of Care Code D/C Day Management >30 mins Diagnoses Acute pancreatitis K85.90 Acute pancreatitis complication: no infection or necrosis Pancreatitis type: unspecified pancreatitis type Diabetes type I E10.9 Diabetes mellitus complication status: without complication Hypertriglyceridemia E78.1 Chronic recurrent pancreatitis K86.1 Congenital absence of kidney Q60.2 Psoriasis L40.9 Snoring R06.83 Hypoxia R09.02 Hypertension I10 Hypertension type: essential hypertension DVT prophylaxis Z29.9
[2020-01-30] MEDS ORDERED: INSULIN ASPART 100 UNITS/ML 3 ML PEN SC SCH (17:30)
[2020-01-30] MEDS ORDERED: INSULIN GLARGINE 100 UNIT/ML VIAL SC SCH (21:00)
--- NOTE | 2020-01-30 22:33 | Electrocardiogram Report ---
Test Reason : Blood Pressure : / mmHG Vent. Rate : 088 BPM Atrial Rate : 088 BPM P-R Int : 148 ms QRS Dur : 084 ms QT Int : 368 ms P-R-T Axes : 029 -04 006 degrees QTc Int : 445 ms Normal sinus rhythm Normal ECG When compared with ECG of 27-APR-2019 18:40, No significant change was found Confirmed by Dmitri Covington ([id number]) on 01/30/2020 10:33:01 PM Referred By: REFERRED SELF Confirmed By:Dmitri Covington
[2020-01-31 05:50] LABS: Estimated Average Glucose 192 mg/dl; Hemoglobin A1C 8.3 % (4.5-5.6)
== END 2020-01-30 18:35 | disposition home or self-care (01) | DRG 439 ==
LOC: ED 08:39 → SUATTDRO 10:36 → 2N 10:36

== ENCOUNTER 2024-05-28 13:38 | Inpatient (IN) ==
[2024-05-28 14:25] LABS: Basophils # (auto) 0.06 K/uL (0.00-0.20); Basophils % (auto) 0.7 %; Eosinophils % (auto) 1.1 %; Hematocrit (blood only) 46.7 % (42.0-52.0); Hemoglobin 15.7 g/dl (14.0-18.0); Immature Granulocytes # (auto) 0.05 K/uL (0.01-0.20); Immature Granulocytes % (auto) 0.6 %; Lymphocytes # (auto) 1.62 K/uL (1.20-3.40); Lymphocytes % (auto) 18.3 %; Mean Corpuscular Hemoglobin 26.3 pg (25.0-34.0); Mean Corpuscular Hgb Conc 33.6 g/dL (32.0-36.0); Mean Corpuscular Volume 78.4 fL (80.0-100.0); Mean Platelet Volume 11.1 fL (9.4-12.4); Monocytes % (auto) 7.9 %; Neutrophils # (auto) 6.32 K/uL (1.40-6.50); Neutrophils % (auto) 71.4 %; Platelet Count 283 K/uL (130-400); RDW Coefficient of Variation 12.6 % (11.5-14.5); RDW Standard Deviation 35.8 fL (36.4-46.3); Red Blood Count 5.96 M/uL (4.70-6.10); White Blood Count 8.85 K/ul (4.8-10.8)
[2024-05-28 14:38] LABS: BUN Creatinine Ratio 18.9 (10-20); Calcium 10.7 mg/dl (8.6-10.3); Creatinine Clr Calc Pharmacy 143.4 ml/min; Potassium 3.1 mmol/L (3.5-5.1)
--- NOTE | 2024-05-28 14:40 | Emergency Department Note ---
Impression & Plan Pancreatitis, History of pancreatitis, Diabetes type I, Hypertriglyceridemia, Hypertension ED Provider Note NAME: CARLOS FRANCISCO AGE: 39 SEX: M : 1985 ARRIVES VIA: Walk-In INFORMANT: Patient ED PROVIDER(S): Maxim Gasca MD CHIEF COMPLAINT: Pancreatitis PLAN: Disposition: Admit MEDICAL DECISION MAKING: The patient is a pleasant 39-year-old gentleman with a past medical history of Real, type 1 diabetes, hypertriglyceridemia, DOMINGO, recurrent pancreatitis who presents to the emergency department via walk-in accompanied by his mother for evaluation of worsening upper abdominal pain and nausea for the past 5 days which is reminiscent of his history of pancreatitis. Patient reports he was attempting to maintain bowel rest and hydrate to manage his symptoms at home but this was not effective and so presents for evaluation. He has any fevers, chills, cough, congestion, diarrhea or urinary symptoms. He understands that he has pancreatitis in the past was attributed to his cholesterol. Upon evaluation patient is uncomfortable but in no distress, afebrile with heart in the 120s-130s and blood pressure in the 190s/100s in the setting of his discomfort. He has mild epigastric tenderness without guarding or rebound. EKG without overt acute ischemia. WBC, H/H and platelets within normal limits. Chemistry without metabolic acidosis. AST, ALT and alk phos are 254, 135 and 190, respectively. Total bilirubin is normal and direct bilirubin is undetectable. Lipase is 692 consistent with pancreatitis. UA without convincing evidence of infection. CT of the abdomen pelvis was performed and demonstrates evidence of acute pancreatitis with soft tissue stranding about the pancreatic head with description multiple calcifications in the duct near the pancreatic head with prominence of the pancreatic duct measured approximately 7 mm. Patient is status post cholecystectomy and physiologic prominence of the biliary ducts are noted. Findings reviewed the patient and his mother at the bedside. Pain was improved with analgesia. Heart rate improved. Given CT findings and duration of his symptoms the patient does agree with plan for admission for further management. Case was discussed with Dr. Moura, GI on-call. Patient will benefit from ERCP at some point given CT findings however given the patient and has normal Bilirubin and had similarly elevated LFTs in the past no indication for emergent ERCP as there is no evidence to suggest cholangitis at this time. Thus, patient can be admitted to the facility for bowel rest, hydration and pain control with plan for outpatient ERCP. Case was d/w Dr. Saul [facility] hospital[facility] who will evaluate the patient for admission. Per request, case clarified with GI Dr. Da Silva, who was subsequently on- call. Agrees that patient can be admitted for bowel rest, pain control and hydration. If pain improves and pancreatitis, then outpatient ERCP is reasonable. However if patient does not improve then transfer can be considered at that time for ERCP. Admitting team updated. Further management per admitting team. Appreciate consultations and recommendations. Triage Nursing notes reviewed and agree them. Prior/external medical records reviewed Vital Signs: reviewed Differential diagnosis: Gastroenteritis, food borne illness, infections, appendicitis, diverticulitis, inflammatory bowel disease, obstruction, GI bleed, biliary pathology, volvulus, as well as other pathologies. ER treatment provided: See below. Diagnostics interpreted by me: ECG: Sinus tachycardia, 121 bpm, no ectopy, nonspecific ST and T wave normality, no overt ST elevation or depression, QTc 477, QRS 82. Cardiac Monitoring: An order for continuous cardiac monitoring was placed and demonstrated sinus tachycardia, 137 bpm, no ectopy. Laboratory studies: See below Imaging studies: See below Consultation(s): Dr. Moura, GI on-call Dr. Da Silva, GI on-call Dr. Saul [facility] hospital[facility] HPI: The patient is a pleasant 39-year-old gentleman with a past medical history of Real, type 1 diabetes, hypertriglyceridemia, DOMINGO, recurrent pancreatitis who presents to the emergency department via walk-in accompanied by his mother for evaluation of worsening upper abdominal pain and nausea for the past 5 days which is reminiscent of his history of pancreatitis. Patient reports he was attempting to maintain bowel rest and hydrate to manage his symptoms at home but this was not effective and so presents for evaluation. He has any fevers, chills, cough, congestion, diarrhea or urinary symptoms. He understands that he has pancreatitis in the past was attributed to his cholesterol. ROS: See above HPI for pertinent positives & negatives. A total of 10 systems reviewed and were otherwise negative. VITALS:See Below PHYSICAL EXAMINATION: GENERAL: Awake, alert, uncomfortable but in no distress HENT: Normocephalic, atraumatic. Oropharynx with dry mucous membranes and otherwise unremarkable. . EYES: Normal conjunctiva. Sclera non-icteric. NECK: Supple. No nuchal rigidity. FROM. No JVD. RESPIRATORY: Clear to auscultation. CARDIAC: Tachycardic rate, normal rhythm. Extremities warm and well perfused. Pulses equal. ABDOMEN: Soft, non-distended. Mild epigastric discomfort without discrete tenderness to palpation. No rebound or guarding. No masses. MUSCULOSKELETAL: Chest examination reveals no tenderness. The back is symmetrical on inspection without obvious abnormality. There is no CVA tenderness to palpation. No joint edema. LOWER EXTREMITIES: Calves are equal size bilaterally and non-tender. No edema. No discoloration. NEURO: Normal sensorium. No sensory or motor deficits noted. SKIN: No rash or jaundice noted. Maxim Gasca MD Past Med/Surg History Problem List (Updated 05/29/24 @ 05:00 by Maxim Gasca MD) Pancreatitis (Acute) Poorly-controlled hypertension Proteinuria Albuminuria Type 1 diabetes mellitus with nephropathy REAL (nonalcoholic steatohepatitis) Elevated liver function tests Obesity Fasting hyperglycemia Obstructive sleep apnea Type 1 diabetes mellitus, uncontrolled Anxiety Situational stress (Acute) Tachycardia (Acute) Snoring Congenital absence of kidney (Chronic) Hypertension (Chronic) Hypertriglyceridemia (Chronic) Hx of cholecystectomy Dyslipidemia (Chronic) Tinea versicolor (Acute) Diabetes type I (Chronic) Dx 11 years old. Psoriasis (Chronic) DKA, type 1 History of pancreatitis (Acute) recurrent; thought 2nd to hypertriglyceridemia; follows with Dr Tali Amaro GI; autoimmune work-up negative. Medical History Anxiety Congenital absence of kidney Diabetes type I History of pancreatitis Hypertension Hypertriglyceridemia Poorly-controlled hypertension Proteinuria Psoriasis Small bowel obstruction Surgical History Hx of cholecystectomy Family History Mother No pertinent past medical history Father Diabetes type 2 Myocardial infarction Social History Smoking Status: Never smoker Second Hand Exposure: No; Do You Dip or Chew Tobacco: No; Tobacco Cessation Education Requested by Patient: No Hx Alcohol Use: No Hx Substance Use: No Preferred Language: Algerian Communication Ability: Effective Biomedical Instrument Technician Required: No Beliefs That Will Affect Care: None marital status: Current Living Situation: Spouse and Family Current Living Situation Comment: and 3 Foster Kids. 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 How many Children do You have: 0 Other Information That Helps Us Care for You: No other: lives in [place] with Feels Safe at Home: Yes Safety Concerns: Feels Safe At This Time Assistive Devices: Glasses, Hospital Bed and Oxygen - Continuous Allergies Allergies Allergy/AdvReac Type Severity Reaction Status Date / Time No Known Allergies Allergy Verified 05/28/24 11:16 Home Meds Home Medications Medication Instructions Recorded Confirmed insulin NPH isoph U-100 human 100 12 unit subcut QPM 04/10/22 05/28/24 unit/mL (3 mL) subcutaneous pen (Humulin N NPH U-100 Insulin KwikPen) guselkumab 100 mg/mL subcutaneous 100 mg subcut UD 05/15/23 05/28/24 auto-injector (Tremfya) insulin glargine U-300 conc 300 96 unit subcut DAILY 05/28/24 05/28/24 unit/mL (3 mL) subcutaneous pen (Toujeo Max U-300 SoloStar) insulin lispro 200 unit/mL (3 mL) 1 unit subcut TIDWMEAL 05/28/24 05/28/24 subcutaneous pen (Humalog KwikPen U-200 Insulin) Previous Rx's Medication Instructions Recorded blood sugar diagnostic #100 ea 03/15/20 hydrocortisone 2.5 % topical cream 1 applic topical BID PRN skin 02/28/21 irritation #28 grams flash glucose sensor (FreeStyle #6 ea 01/03/23 Kimberly 2 Sensor kit) escitalopram oxalate 10 mg tablet 10 mg PO DAILY #90 tabs 02/11/23 (Lexapro) hydrochlorothiazide 25 mg tablet 25 mg PO DAILY #90 tabs 02/11/23 atorvastatin 80 mg tablet 80 mg PO QPM #90 tabs 04/14/23 icosapent ethyl 1 gram capsule 1 g PO BID #180 caps 07/01/23 (Vascepa) pen needle, diabetic 31 gauge x #400 ea 08/13/2308/29" (BD Ultra-Fine Mini Pen Needle) diltiazem HCl 420 mg capsule,24 420 mg PO HS #90 caps 08/28/23 hr,extended release (Tiazac) fenofibrate 160 mg tablet 160 mg PO DAILY #90 tabs 08/28/23 losartan 100 mg tablet 100 mg PO DAILY #90 tabs 08/28/23 metoprolol succinate 50 mg 50 mg PO DAILY #30 tabs 08/28/23 tablet,extended release 24 hr pantoprazole 40 mg tablet,delayed 40 mg PO QAM #90 tabs 10/31/23 release insulin pump cart,automated,BT #15 ea 03/22/24 (Omnipod 5 G6 Pods (Gen 5) subcutaneous cartridge) insulin pump cartridge,automated #1 ea 03/22/24 dose,BT with controller subcutaneous (Omnipod 5 G6 Intro Kit (Gen 5) subcutaneous cartridge with controller) blood-glucose sensor (Dexcom G6 #9 ea 04/19/24 Sensor device) blood-glucose transmitter (Dexcom #1 ea 04/19/24 G6 Transmitter device) Results & Data (ED) Vital Signs Vital Signs - 24 hr 05/28/24 13:44 05/28/24 15:00 05/28/24 15:43 Temperature 36.7 C Temperature Source Skin Pulse Rate 137 H 105 H Pulse Rate [Finger] 98 H Respiratory Rate 18 18 Respiratory Effort / Characteristics Non-Labored Spontaneous Respiratory Depth Normal Respiratory Pattern Regular Blood Pressure 197/108 H Blood Pressure [Right Arm] 179/119 H Blood Pressure Mean 137 Blood Pressure Mean [Right Arm] 139 Pulse Oximetry 97 93 Oxygen Delivery Method Room Air Room Air Sepsis Recent Fever Within 48 Hours No Sepsis New/Unexplained Change in Mental Status N/A Sepsis Action Taken by Nursing No Action Required 05/28/24 16:34 05/28/24 17:49 Temperature Temperature Source Pulse Rate Pulse Rate [Finger] 98 H 89 Respiratory Rate 17 18 Respiratory Effort / Characteristics Respiratory Depth Respiratory Pattern Blood Pressure Blood Pressure [Right Arm] 178/115 H 143/108 H Blood Pressure Mean Blood Pressure Mean [Right Arm] 136 119 Pulse Oximetry 93 93 Oxygen Delivery Method Room Air Sepsis Recent Fever Within 48 Hours Sepsis New/Unexplained Change in Mental Status Sepsis Action Taken by Nursing Laboratory Data Attestation: I reviewed the patient's lab results. 05/28/24 14:06 05/28/24 14:06 Lab Results 05/28/24 05/28/24 Range/Units 14:06 15:25 WBC 8.85 (4.8-10.8) K/ul RBC 5.96 (4.70-6.10) M/uL Hgb 15.7 (14.0-18.0) g/dl Hct 46.7 (42.0-52.0) % MCV 78.4 L (80.0-100.0) fL MCH 26.3 (25.0-34.0) pg MCHC 33.6 (32.0-36.0) g/dL RDW Std Deviation 35.8 L (36.4-46.3) fL RDW Coeff of Marianne 12.6 (11.5-14.5) % Plt Count 283 (130-400) K/uL MPV 11.1 (9.4-12.4) fL Immature Gran % (Auto) 0.6 % Neut % (Auto) 71.4 % Lymph % (Auto) 18.3 % Dauphin % (Auto) 7.9 % Eos % (Auto) 1.1 % Baso % (Auto) 0.7 % Neut # (Auto) 6.32 (1.40-6.50) K/uL Lymph # (Auto) 1.62 (1.20-3.40) K/uL Dauphin # (Auto) 0.70 H (0.11-0.59) K/uL Eos # (Auto) 0.10 (0.00-0.50) K/uL Baso # (Auto) 0.06 (0.00-0.20) K/uL Immature Gran # (Auto) 0.05 (0.01-0.20) K/uL Sodium 138 (136-145) mmol/L Potassium 3.1 L (3.5-5.1) mmol/L Chloride 97 L (98-107) mmol/L Carbon Dioxide 30 (21-32) mmol/L Anion Gap 11 (3-11) BUN 18 (6-23) mg/dl Creatinine 0.95 (0.6-1.4) mg/dl Est Cr Clr Drug Dosing 143.4 ml/min eGFR 105.72 BUN/Creatinine Ratio 18.9 (10-20) Glucose 132 H (70-99(Fasting)) mg/dl Calcium 10.7 H (8.6-10.3) mg/dl Total Bilirubin 0.5 (0.2-1.0) mg/dl Direct Bilirubin 0.0 (0-0.2) mg/dl AST 254 H (13-39) U/L ALT 135 H (7-52) U/L Alkaline Phosphatase 190 H (34-104) U/L Total Protein 8.3 (6.0-8.3) gm/dl Albumin 4.3 (3.4-5.0) gm/dl Globulin 4.0 (2.5-4.0) gm/dl Albumin/Globulin Ratio 1.1 (0.9-2) Triglycerides 339 H (0-150) mg/dl Lipase 692 H (11-82) U/L Urine Color Yellow Urine Appearance Clear (Clear) Urine pH 5.5 (4.5-7.5) Ur Specific Misenheimer > 1.045 H (1.000-1.030) Urine Protein 3+ H (Negative) Urine Glucose (UA) Trace H (Negative) Urine Ketones 1+ H (Negative) Urine Blood Negative (Negative) Urine Nitrite Negative (Negative) Urine Bilirubin Negative (Negative) Urine Urobilinogen Negative (Negative) Ur Leukocyte Esterase Negative (Negative) Urine WBC (Auto) 0-5 (0-5) /hpf Urine RBC (Auto) 0-2 (0-2) /hpf U Hyaline Cast (Auto) >20 H (0-2) /lpf U Epithel Cells (Auto) 3-5 H (0-2) /hpf Urine Bacteria (Auto) None Seen (None Seen) Hyaline Casts Present A (None Presnt) /lpf Administered Medications Atorvastatin Calcium (Atorvastatin 40 Mg Tab) 80 mg PO QPM [facility] Stop: 06/27/24 21:25 Last Admin: 05/28/24 22:29 Dose: 80 mg Documented By: CARLA Betamethasone Dipropion Augmented (Betamethasone Dip Aug (Diprolene) 0.05% Cr 50 Gm Tube) 1 appln EXT BID [facility] Stop: 06/27/24 21:25 Last Admin: 05/28/24 22:30 Dose: 1 appln Documented By: CARLA Diltiazem HCl (Diltiazem Hcl 300 Mg Capcr) 300 mg PO HS [facility] Stop: 06/27/24 21:59 Last Admin: 05/28/24 22:28 Dose: 300 mg Documented By: CARLA Diltiazem HCl (Diltiazem Hcl 120 Mg Capcr) 120 mg PO [facility] Stop: 06/27/24 21:59 Last Admin: 05/28/24 22:28 Dose: 120 mg Documented By: CARLA Hydromorphone HCl (Hydromorphone Inj 0.5 Mg/0.5 Ml Syr) 0.5 mg IV Q3H PRN PRN Reason: Pain (6,7,8,9,10) Stop: 06/11/24 21:25 Last Admin: 05/29/24 04:29 Dose: 0.5 mg Documented By: Admin: 05/28/24 22:42 Dose: 0.5 mg Documented By: CARLA Parenteral Electrolytes (Plasma-Lyte A Ph 7.4) 1,000 mls @ 150 mls/hr IV .Q6H40M [facility] Stop: 05/29/24 22:09 Last Admin: 05/28/24 22:05 Dose: 150 mls/hr Documented By: BARBARA Insulin Aspart (Insulin Aspart Per Unit Charge) 0 units SC Q6 [facility] Stop: 06/27/24 21:29 Last Admin: 05/29/24 00:27 Dose: 7 units Documented By: CARLA Co-signed By: ANGELINE Admin: 05/28/24 22:25 Dose: 6 units Documented By: CARLA Co-signed By: ANGELINE Insulin Glargine (Lantus Per Unit Charge) 75 units SQ [facility] Stop: 06/27/24 21:59 Last Admin: 05/28/24 22:26 Dose: 75 units Documented By: CARLA Co-signed By: ANGELINE Discontinued Medications Hydromorphone HCl (Hydromorphone Inj 0.5 Mg/0.5 Ml Syr) 0.5 mg IV NOW STA Stop: 05/28/24 19:32 Last Admin: 05/28/24 19:54 Dose: 0.5 mg Documented By: JILL Sodium Chloride (Nss) 1,000 mls @ 999 mls/hr IV .Q1H1M ONE Stop: 05/28/24 15:39 Last Infusion: 05/28/24 16:32 Dose: Infused Documented By: Admin: 05/28/24 15:15 Dose: 999 mls/hr Documented By: MOLLY Acetaminophen (Ofirmev) 1,000 mg in 100 mls @ 400 mls/hr IV NOW STA Stop: 05/28/24 14:53 Last Infusion: 05/28/24 16:32 Dose: Infused Documented By: Admin: 05/28/24 15:19 Dose: 400 mls/hr Documented By: MOLLY Famotidine (Pepcid 20mg Iv Push) 20 mg in 5 mls @ 2.5 mls/min IV NOW STA Stop: 05/28/24 14:41 Last Admin: 05/28/24 15:18 Dose: 2.5 mls/min Documented By: MOLLY Sodium Chloride (Nss) 1,000 mls @ 999 mls/hr IV .Q1H1M ONE Stop: 05/28/24 17:22 Last Infusion: 05/28/24 17:47 Dose: Infused Documented By: Admin: 05/28/24 16:30 Dose: 999 mls/hr Documented By: MOLLY Ioversol (Optiray 320 100ml) 90 ml IV ONCE ONE Stop: 05/28/24 15:01 Last Admin: 05/28/24 15:00 Dose: 90 ml Documented By: GEOVANNI Ketorolac Tromethamine (Ketorolac Tromethamine 15 Mg/Ml Vial) 15 mg IV NOW ONE Stop: 05/28/24 19:32 Last Admin: 05/28/24 19:54 Dose: 15 mg Documented By: JILL Morphine Sulfate (Morphine Sulfate 10 Mg/Ml Carp/Vial) 8 mg IV NOW STA Stop: 05/28/24 14:45 Last Admin: 05/28/24 15:18 Dose: 8 mg Documented By: MOLLY Morphine Sulfate (Morphine Sulfate 10 Mg/Ml Carp/Vial) 8 mg IV NOW STA Stop: 05/28/24 16:23 Last Admin: 05/28/24 16:28 Dose: 8 mg Documented By: MOLLY Ondansetron HCl (Ondansetron Inj 2 Mg/Ml 2 Ml Vial) 4 mg IV NOW STA Stop: 05/28/24 14:41 Last Admin: 05/28/24 15:18 Dose: 4 mg Documented By: MOLLY Potassium Chloride (Potassium Chloride Crtab 20 Meq Tabcr) 40 meq PO NOW STA Stop: 05/28/24 18:12 Last Admin: 05/28/24 19:11 Dose: 40 meq Documented By: MOLLY Imaging Data Radiologist's Impression: Abdomen/Pelvis CT 05/28/24 14:40 CT abd pelvis IV con only CLINICAL HISTORY: epigastric pain, h/o pancreatitis TECHNIQUE: Helical axial images of the abdomen and pelvis were obtained and displayed. Automated dose lowering techniques and/or adjustment according to patient size were utilized for this exam. This exam was performed with intravenous contrast. CT DOSE: 1593.71 mGy.cm COMPARISON: Comparison is made to CT abdomen pelvis 02/08/2020 FINDINGS: Lower chest: No acute abnormality. Liver: Unremarkable. No focal lesions are seen. Gallbladder and biliary tree: Patient is status post cholecystectomy. Physiologic prominence of the biliary ducts is noted. Pancreas: Soft tissue stranding is seen about the pancreatic head. Multiple calcifications in the duct near the pancreatic head with prominence of the pancreatic duct in the body measuring approximately 7 mm. Spleen: Unremarkable. Adrenals: Unremarkable. 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 Bladder: Unremarkable. Reproductive organs: Unremarkable. Bowel: The appendix is normal. Lymph nodes Retroperitoneal: Unremarkable. Pelvic: Unremarkable. Mesenteric: Subcentimeter lymph nodes are noted. Peritoneum: Fat stranding is seen about the pancreatic head. Vessels: Unremarkable. Abdominal wall: Fat stranding is seen in the anterior abdominal wall, similar to prior exam. Bones: Minimal degenerative changes are seen. IMPRESSION: 1. Acute pancreatitis likely due to obstructed pancreatic duct stones. No evidence of acute peripancreatic collections. 2. Absent left kidney is surgically absent gallbladder. 3. Persistent right anterior abdominal wall swelling. ACT 112: Negative or not required by law. Electronically signed by: Miguelito Saul M.D. 05/28/2024 3:24 PM Discharge Plan Visit Data Chief Complaint: Abdominal Pain Stated Complaint: PANCREATITIS, UPPER LT ABD PAIN ED Provider: Maxim Gasca Discharge Problem: Pancreatitis, History of pancreatitis, Diabetes type I, Hypertriglyceridemia, Hypertension Patient Disposition: Admitted As Inpatient Discharge Instructions Interventions: ED Discharge Assessment Last Done: 05/28/24 21:01 Discharge Problem: Pancreatitis Qualifiers: Chronicity: acute Pancreatitis type: unspecified pancreatitis type Acute pancreatitis complication: unspecified Qualified Code(s): K85.90 - Acute pancreatitis without necrosis or infection, unspecified Diabetes type I Qualifiers: Diabetes mellitus complication status: with other specified complication Q ualified Code(s): E10.69 - Type 1 diabetes mellitus with other specified complication Hypertension Qualifiers: Hypertension type: unspecified Qualified Code(s): I10 - Essential (primary) hypertension
[2024-05-28 14:56] LABS: Albumin Globulin Ratio 1.1 (0.9-2); Albumin Level 4.3 gm/dl (3.4-5.0); Bilirubin,Total 0.5 mg/dl (0.2-1.0); Total Protein 8.3 gm/dl (6.0-8.3)
[2024-05-28] MEDS: OPTIRAY 320 100ml IV ONE (15:00)
[2024-05-28] MEDS: SODIUM CHLORIDE 0.9% 1,000 ML IV ONE ×2 (15:15→16:30)
[2024-05-28] MEDS: ONDANSETRON INJ 2 MG/ML 2 ML VIAL IV STA (15:18)
[2024-05-28] MEDS: FAMOTIDINE 20MG IV PUSH 20 MG/5 ML SYR IV STA (15:18)
[2024-05-28] MEDS: MoRPHine SULFATE 10 MG/ML CARP/VIAL IV STA ×2 (15:18→16:28)
[2024-05-28] MEDS: ACETAMINOPHEN 1,000 MG/100 ML VIAL IV STA (15:19)
--- NOTE | 2024-05-28 15:26 | CT Scan Report ---
CT abd pelvis IV con only CLINICAL HISTORY: epigastric pain, h/o pancreatitis TECHNIQUE: Helical axial images of the abdomen and pelvis were obtained and displayed. Automated dose lowering techniques and/or adjustment according to patient size were utilized for this exam. This e xam was performed with intravenous contrast. CT DOSE: 1593.71 mGy.cm COMPARISON: Comparison is made to CT abdomen pelvis 02/08/2020 FINDINGS: Lower chest: No acute abnormality. Liver: Unremarkable. No focal lesions are seen. Gallbladder and biliary tree: Patient is status post cholecystectomy. Physiologic prominence of the b iliary ducts is noted. Pancreas: Soft tissue stranding is seen about the pancreatic head. Multiple calcifications in the laureano t near the pancreatic head with prominence of the pancreatic duct in the body measuring approximately 7 mm. Spleen: Unremarkable. Adrenals: Unremarkable. 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 Bladder: Unremarkable. Reproductive organs: Unremarkable. Bowel: The appendix is normal. Lymph nodes Retroperitoneal: Unremarkable. Pelvic: Unremarkable. Mesenteric: Subcentimeter lymph nodes are noted. Peritoneum: Fat stranding is seen about the pancreatic head. Vessels: Unremarkable. Abdominal wall: Fat stranding is seen in the anterior abdominal wall, similar to prior exam. Bones: Minimal degenerative changes are seen. IMPRESSION: 1. Acute pancreatitis likely due to obstructed pancreatic duct stones. No evidence of acute peripanc reatic collections. 2. Absent left kidney is surgically absent gallbladder. 3. Persistent right anterior abdominal wall swelling. ACT 112: Negative or not required by law. Electronically signed by: Miguelito Saul M.D. 05/28/2024 3:24 PM
[2024-05-28 15:51] LABS: Appearance Urine Clear (Clear); Bacteria Urine Automated None Seen (None Seen); Bilirubin Urine Negative (Negative); Blood Urine Negative (Negative); Cast Urine Automated >20 /lpf (0-2); Color Urine Yellow; Glucose Urine UA Trace (Negative); Hyaline Casts Urine Present /lpf (None Presnt); Ketones Urine 1+ (Negative); Leukocyte Esterase Urine Negative (Negative); Nitrite Urine Negative (Negative); Protein Urine 3+ (Negative); RBC Urine Automated 0-2 /hpf (0-2); Specific Gravity Urine > 1.045 (1.000-1.030); Urobilinogen Urine Negative (Negative); WBC Urine Automated 0-5 /hpf (0-5); pH Urine 5.5 (4.5-7.5)
[2024-05-28] MEDS: POTASSIUM CHLORIDE CRTAB 20 MEQ TABCR PO STA (19:11)
--- NOTE | 2024-05-28 19:23 | History & Physical Report ---
Date of Service May 28, 2024 Assessment & Plan (1) Pancreatitis: Plan: NPO except meds NSS 2L bolus given in the ER, Plasma-Lyte @ 150ml/hr Triglycerides elevated but no to the extent I suspect this is the cause, much more likely secondary to pancreatic stones - ER discussed this with GI and do not feel urgent ERCP is warrant but possibly will need as outpatient or inpatient if not improving Repeat CMP in AM, if LFTs or patient clinically getting worse may need transfer for ERCP Consult gastroenterology Pain medication with Toradol 1st line, Dilaudid 0.25-0.5mg 2nd line Ondansetron for nausea (2) Type 1 diabetes mellitus with nephropathy: Plan: Last Humalog 8 units this morning Usual basal dosing with Toujeo 96 units, given NPO will switch to Lantus 53 units HS Novolog same as outpatient dosing: --Goal BSG Range: Low 110 mg/dL, High 150 mg/dL --Correction Factor: 20 mg/dL/unit --Carbohydrate ratio = 5 g/unit --BSGs ACHS if eating, q6h if npo Since has T1DM will consult for ongoing glycemic control during his inpatient admission (3) Obstructive sleep apnea: Plan: CPAP HS (4) Hypokalemia: Plan: Replacement given in the ER, will place HCTZ on hold pending repeat levels in AM (5) Psoriasis: Plan: On Tremfya Increase potency of steroid cream to betamethasone BID Plan HTN - Continue losartan, metoprolol, diltiazem, holding HCTZ as above Hypertriglyceridemia - Continue fenofibrate and atorvastatin VTE Prophylaxis - low risk per Poncho Prediction Score, SCDs Diet - NPO Disposition - admit to med/surg Admission and Anticipated Discharge Date Admission Date: May 28, 2024 History of Present Illness Chief Complaint: Epigastric pain Primary Care Provider: Jena Naidu DO Alexander Miranda is a 39 year old male with recurrent episodes of pancreatitis who presents to the ER with epigastric pain. Previous pancreatitis episodes suspected to be secondary to hypertriglyceridemia however current CT concerning for obstructive pancreatic stones. He reports his current episode started 4 days ago on May 19. Epigastric pain constant without radiation, associated nausea but no vomiting. No fever or chills. Severity currently 4/10 after morphine given in the ER, at worse it has been 8-9/10. He reports his pancreatitis usually resolves with conservative measures with IV pain medication and fluids. ER Discussed with gastroenterology given obstructive pancreatic stones seen with elevated transaminitis - recommended no urgent need for ERCP at this time, trial of conservative management with bowel rest and IV fluids and may need outpatient ERCP. Allergies Allergy/AdvReac Type Severity Reaction Status Date / Time No Known Allergies Allergy Verified 05/28/24 11:16 Home Medications Medication Instructions Recorded Confirmed Type blood sugar diagnostic #100 ea 03/15/20 05/28/24 Rx hydrocortisone 2.5 % topical cream 1 applic topical BID PRN skin 02/28/21 05/28/24 Rx irritation #28 grams insulin NPH isoph U-100 human 100 12 unit subcut QPM 04/10/22 05/28/24 History unit/mL (3 mL) subcutaneous pen (Humulin N NPH U-100 Insulin KwikPen) flash glucose sensor (FreeStyle #6 ea 01/03/23 05/28/24 Rx Kimberly 2 Sensor kit) escitalopram oxalate 10 mg tablet 10 mg PO DAILY #90 tabs 02/11/23 05/28/24 Rx (Lexapro) hydrochlorothiazide 25 mg tablet 25 mg PO DAILY #90 tabs 02/11/23 05/28/24 Rx atorvastatin 80 mg tablet 80 mg PO QPM #90 tabs 04/14/23 05/28/24 Rx guselkumab 100 mg/mL subcutaneous 100 mg subcut UD 05/15/23 05/28/24 History auto-injector (Tremfya) icosapent ethyl 1 gram capsule 1 g PO BID #180 caps 07/01/23 05/28/24 Rx (Vascepa) pen needle, diabetic 31 gauge x #400 ea 08/13/23 05/28/24 Rx 3/16" (BD Ultra-Fine Mini Pen Needle) diltiazem HCl 420 mg capsule,24 420 mg PO HS #90 caps 08/28/23 05/28/24 Rx hr,extended release (Tiazac) fenofibrate 160 mg tablet 160 mg PO DAILY #90 tabs 08/28/23 05/28/24 Rx losartan 100 mg tablet 100 mg PO DAILY #90 tabs 08/28/23 05/28/24 Rx metoprolol succinate 50 mg 50 mg PO DAILY #30 tabs 08/28/23 05/28/24 Rx tablet,extended release 24 hr pantoprazole 40 mg tablet,delayed 40 mg PO QAM #90 tabs 10/31/23 05/28/24 Rx release insulin pump cart,automated,BT #15 ea 03/22/24 05/28/24 Rx (Omnipod 5 G6 Pods (Gen 5) subcutaneous cartridge) insulin pump cartridge,automated #1 ea 03/22/24 05/28/24 Rx dose,BT with controller subcutaneous (Omnipod 5 G6 Intro Kit (Gen 5) subcutaneous cartridge with controller) blood-glucose sensor (Dexcom G6 #9 ea 04/19/24 05/28/24 Rx Sensor device) blood-glucose transmitter (Dexcom #1 ea 04/19/24 05/28/24 Rx G6 Transmitter device) insulin glargine U-300 conc 300 96 unit subcut DAILY 05/28/24 05/28/24 History unit/mL (3 mL) subcutaneous pen (Toujeo Max U-300 SoloStar) insulin lispro 200 unit/mL (3 mL) 1 unit subcut TIDWMEAL 05/28/24 05/28/24 History subcutaneous pen (Humalog KwikPen U-200 Insulin) Past Med/Surg History Problem List (Updated 05/29/24 @ 07:01 by Ritesh Saul MD) Hypokalemia Pancreatitis (Acute) Poorly-controlled hypertension Proteinuria Albuminuria Type 1 diabetes mellitus with nephropathy PIÑA (nonalcoholic steatohepatitis) Elevated liver function tests Obesity Fasting hyperglycemia Obstructive sleep apnea Type 1 diabetes mellitus, uncontrolled Anxiety Situational stress (Acute) Tachycardia (Acute) Snoring Congenital absence of kidney (Chronic) Hypertension (Chronic) Hypertriglyceridemia (Chronic) Hx of cholecystectomy Dyslipidemia (Chronic) Tinea versicolor (Acute) Diabetes type I (Chronic) Dx 11 years old. Psoriasis (Chronic) DKA, type 1 History of pancreatitis (Acute) recurrent; thought 2nd to hypertriglyceridemia; follows with Dr Tali Amaro GI; autoimmune work-up negative. Medical History Anxiety Congenital absence of kidney Diabetes type I History of pancreatitis Hypertension Hypertriglyceridemia Poorly-controlled hypertension Proteinuria Psoriasis Small bowel obstruction Surgical History Hx of cholecystectomy Family History Mother No pertinent past medical history Father Diabetes type 2 Myocardial infarction Social History Smoking Status: Never smoker Second Hand Exposure: No; Do You Dip or Chew Tobacco: No; Tobacco Cessation Education Requested by Patient: No Hx Alcohol Use: No Hx Substance Use: No Preferred Language: Serbian Communication Ability: Effective Heater Mechanic Required: No Beliefs That Will Affect Care: None marital status: Current Living Situation: Spouse and Family Current Living Situation Comment: and 3 Foster Kids. current occupational status: employed current occupation: teacher - [email or web address] How many Children do You have: 0 Other Information That Helps Us Care for You: No other: lives in [place] with Feels Safe at Home: Yes Safety Concerns: Feels Safe At This Time Assistive Devices: Glasses, Hospital Bed and Oxygen - Continuous Review of Systems Review of Systems: All systems reviewed & are unremarkable except as noted in HPI & below Physical Exam Constitutional: WD/WN, vitals as above Eyes: + anicteric sclerae; normal pupil size ENMT: external ear and nose normal, oropharynx normal Respiratory: normal respiratory effort, lungs clear to auscultation Cardiovascular: Rate/Rhythm: regular rhythm and + tachycardic Heart Sounds: no murmur Extremities: normal capillary refill; no calf tenderness and no pedal edema Gastrointestinal (Abdomen): Inspection/Auscultation: abdomen normal to inspec tion; abdomen not distended Percussion/Palpation: + abdomen tender (epigastric pain) and abdomen soft Skin: no rashes, warm and dry Neurologic: moves all extremities and awake; not confused Psychiatric: A+Ox3, euthymic affect Results & Data Results & Data Vital Signs (Past 12 Hours) Vital Signs Temp Pulse Pulse Resp BP BP Pulse Ox 05/28/24 17:49 89 18 143/108 H 93 05/28/24 16:34 98 H 17 178/115 H 93 05/28/24 15:43 105 H 05/28/24 15:00 98 H 18 179/119 H 93 05/28/24 13:44 36.7 C 137 H 18 197/108 H 97 O2 Del Method 05/28/24 17:49 05/28/24 16:34 Room Air 05/28/24 15:43 05/28/24 15:00 Room Air 05/28/24 13:44 Room Air Laboratory Results Abnormal lab results 05/28/24 05/28/24 05/28/24 Range/Units 14:06 15:25 21:52 MCV 78.4 L (80.0-100.0) fL RDW Std Deviation 35.8 L (36.4-46.3) fL [place] # (Auto) 0.70 H (0.11-0.59) K/uL Potassium 3.1 L (3.5-5.1) mmol/L Chloride 97 L (98-107) mmol/L Glucose 132 H (70-99(Fasting)) mg/dl POC Glucose 247 H (70-99) mg/dl Calcium 10.7 H (8.6-10.3) mg/dl AST 254 H (13-39) U/L ALT 135 H (7-52) U/L Alkaline Phosphatase 190 H (34-104) U/L Triglycerides 339 H (0-150) mg/dl Lipase 692 H (11-82) U/L Ur Specific [place] > 1.045 H (1.000-1.030) Urine Protein 3+ H (Negative) Urine Glucose (UA) Trace H (Negative) Urine Ketones 1+ H (Negative) U Hyaline Cast (Auto) >20 H (0-2) /lpf U Epithel Cells (Auto) 3-5 H (0-2) /hpf Hyaline Casts Present A (None Presnt) /lpf Diagnostic Findings CT abd pelvis IV con only CLINICAL HISTORY: epigastric pain, h/o pancreatitis TECHNIQUE: Helical axial images of the abdomen and pelvis were obtained and displayed. Automated dose lowering techniques and/or adjustment according to patient size were utilized for this exam. This exam was performed with intravenous contrast. CT DOSE: 1593.71 mGy.cm COMPARISON: Comparison is made to CT abdomen pelvis 02/08/2020 FINDINGS: Lower chest: No acute abnormality. Liver: Unremarkable. No focal lesions are seen. Gallbladder and biliary tree: Patient is status post cholecystectomy. Physi ologic prominence of the biliary ducts is noted. Pancreas: Soft tissue stranding is seen about the pancreatic head. Multiple calcifications in the duct near the pancreatic head with prominence of the pancreatic duct in the body measuring approximately 7 mm. Spleen: Unremarkable. Adrenals: Unremarkable. 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 Bladder: Unremarkable. Reproductive organs: Unremarkable. Bowel: The appendix is normal. Lymph nodes Retroperitoneal: Unremarkable. Pelvic: Unremarkable. Mesenteric: Subcentimeter lymph nodes are noted. Peritoneum: Fat stranding is seen about the pancreatic head. Vessels: Unremarkable. Abdominal wall: Fat stranding is seen in the anterior abdominal wall, similar to prior exam. Bones: Minimal degenerative changes are seen. IMPRESSION: 1. Acute pancreatitis likely due to obstructed pancreatic duct stones. No evidence of acute peripancreatic collections. 2. Absent left kidney is surgically absent gallbladder. 3. Persistent right anterior abdominal wall swelling. Medications Administered ER Medications Given: Normal saline 1000ml bolus Acetaminophen 1000mg IV Ondansetron 4mg IV Famotidine 20mg IV Morphine 8mg IV Morphine 8mg IV Normal saline 1000ml bolus ECG Rate (beats per minute): 121 Rhythm: sinus tachycardia Findings: no acute ischemic change Comparison ECG Date: from (January 29, 2020) Change: the following changes noted (T wave flattening now evident in lateral leads) Code Status & VTE Plan Code Status Full VTE Prophylaxis Plan VTE Prophylaxis will be ordered: Yes Reason for no VTE drug order: Treatment not indicated PG Care Time/CCT Total # of Minutes Spent Total Time Spent with Patient: Total time spent is greater than 50% in coordination of care (as documented) at patient's floor/unit and/or counseling patient: Coding Level of Care Code 23516 INT INP/OBS CARE 3/75MIN Diagnoses Pancreatitis K85.90 Type 1 diabetes mellitus with nephropathy E10.21 Obstructive sleep apnea G47.33 Hypokalemia E87.6 Psoriasis L40.9
[2024-05-28] MEDS: HYDROmorphone INJ 0.5 MG/0.5 ML SYR IV STA (19:54)
[2024-05-28] MEDS: KETOROLAC TROMETHAMINE 15 MG/ML VIAL IV ONE (19:54)
[2024-05-28] MEDS ORDERED: GLUCAGON FOR INJ 1 MG VIAL SQ PRN (21:26)
[2024-05-28] MEDS ORDERED: DILTIAZEM HCL 420 MG PO SCH (21:26)
[2024-05-28] MEDS ORDERED: DEXTROSE 50% 50 ML SYRINGE IV PRN (21:26)
[2024-05-28] MEDS ORDERED: GLUCOSE 10 TAB/TUBE PO PRN (21:26)
[2024-05-28] MEDS ORDERED: CARBOHYDRATES FOR HYPOGLYCEMIA PO PRN (21:26)
[2024-05-28] MEDS ORDERED: PHARMACY GLYCEMIC MGMT CONSULT PRN (21:26)
[2024-05-28] MEDS ORDERED: HYDROmorphone INJ 0.5 MG/0.5 ML SYR IV PRN (21:26)
[2024-05-28] MEDS ORDERED: GLUCOSE 40% GEL 15 GM TUBE PO PRN (21:26)
[2024-05-28] MEDS: PLASMA-LYTE A 1,000 ML IV SCH (22:05)
[2024-05-28] MEDS: INSULIN ASPART PER UNIT CHARGE SC SCH (22:25)
[2024-05-28] MEDS: LANTUS PER UNIT CHARGE SQ SCH (22:26)
[2024-05-28] MEDS: dilTIAZem HCL 120 MG CAPCR PO SCH (22:28)
[2024-05-28] MEDS: dilTIAZem HCL 300 MG CAPCR PO SCH (22:28)
[2024-05-28] MEDS: ATORVASTATIN 40 MG TAB PO SCH (22:29)
[2024-05-28] MEDS: BETAMETHASONE DIP AUG (DIPROLENE) 0.05% CR 50 GM TUBE EXT SCH (22:30)
[2024-05-28] MEDS: HYDROmorphone INJ 0.5 MG/0.5 ML SYR IV PRN (22:42)
[2024-05-28] MEDS ORDERED: ONDANSETRON INJ 2 MG/ML 2 ML VIAL IV PRN (23:22)
[2024-05-29 06:21] LABS: Basophils # (auto) 0.06 K/uL (0.00-0.20); Eosinophils # (auto) 0.22 K/uL (0.00-0.50); Eosinophils % (auto) 3.8 %; Hematocrit (blood only) 40.3 % (42.0-52.0); Immature Granulocytes # (auto) 0.04 K/uL (0.01-0.20); Immature Granulocytes % (auto) 0.7 %; Lymphocytes # (auto) 1.61 K/uL (1.20-3.40); Lymphocytes % (auto) 27.6 %; Mean Corpuscular Hemoglobin 25.9 pg (25.0-34.0); Mean Corpuscular Hgb Conc 32.3 g/dL (32.0-36.0); Mean Corpuscular Volume 80.4 fL (80.0-100.0); Mean Platelet Volume 11.5 fL (9.4-12.4); Monocytes # (auto) 0.65 K/uL (0.11-0.59); Monocytes % (auto) 11.1 %; Neutrophils # (auto) 3.25 K/uL (1.40-6.50); Neutrophils % (auto) 55.8 %; Platelet Count 214 K/uL (130-400); RDW Coefficient of Variation 13.1 % (11.5-14.5); RDW Standard Deviation 37.5 fL (36.4-46.3); Red Blood Count 5.01 M/uL (4.70-6.10); White Blood Count 5.83 K/ul (4.8-10.8)
[2024-05-29 06:38] LABS: Albumin Level 3.1 gm/dl (3.4-5.0); BUN Creatinine Ratio 14.9 (10-20); Bilirubin,Total 1.4 mg/dl (0.2-1.0); Calcium 8.4 mg/dl (8.6-10.3); Creatinine Clr Calc Pharmacy 204.4 ml/min; Potassium 3.7 mmol/L (3.5-5.1); Total Protein 6.1 gm/dl (6.0-8.3)
[2024-05-29 07:29] LABS: Estimated Average Glucose 203 mg/dl; Hemoglobin A1C 8.7 % (4.5-5.6)
[2024-05-29] MEDS: ESCITALOPRAM OXALATE 10 MG TAB PO SCH (07:43)
[2024-05-29] MEDS: METOPROLOL SUCC 50MG EXT REL TAB PO SCH (07:43)
[2024-05-29] MEDS: FENOFIBRATE NANOCRYSTALLIZED 145 MG TABLET PO SCH (07:43)
[2024-05-29] MEDS: LOSARTAN POTASSIUM 50 MG TAB PO SCH (07:43)
--- NOTE | 2024-05-29 07:55 | Hospitalist Progress Note ---
Date of Service May 29, 2024 Assessment & Plan (1) Pancreatitis: Plan: CTAP on admission Acute pancreatitis likely due to obstructed pancreatic duct stones. No evidence of acute peripancreatic collections. LFTs elevated (absent GB), Lipase 692. TRG 339. TB was 0.5 2L bolus in ER, continued on plasmalyte @150cc/hr Triglycerides elevated but no to the extent I suspect this is the cause, much more likely secondary to pancreatic stones - ER discussed this with GI and do not feel urgent ERCP is warrant but possibly will need as outpatient or inpatient if not improving OF NOTE, hx psoriasis associated w/ increased of chronic pancreatitis, his is not well controlled GI consulted, monitoring for possible need for ERCP/transfer Pain medication with Toradol 1st line, Dilaudid 0.25-0.5mg 2nd line Ondansetron for nausea 05/29 LFTs WORSE today: * TB 0.5--> 1.4 * AST 254--> 938 * ALT 135--> 489 * ALP 190--> 252 However, patient does endorse FEELING better/no significant abdominal discomfort and ?if passed stone however will plan for MRCP and GI consult pending to see if need for ERCP No significant epigastric pain today, lipase to 241 Continue NPO IVF @ 150cc/hr continued. will extend additional 1L to prevent dropping off Pain control/antiemetics as needed. HCTZ on hold. Atorvastatin to be held.Monitor to hold losartan but is NOT new medication Ca 10.7 on admission, will check Vit D w/ labs. ?hyperparathyroidism w/ stone. check PTH pending Vit D/ca in AM Monitor labs/exam on repeat. (2) Type 1 diabetes mellitus with nephropathy: Plan: Last Humalog 8 units AM 05/28 Usual basal dosing with Toujeo 96 units, Given NPO will switch to Lantus 53 units HS Novolog same as outpatient dosing: --Goal BSG Range: Low 110 mg/dL, High 150 mg/dL --Correction Factor: 20 mg/dL/unit --Carbohydrate ratio = 5 g/unit --BSGs ACHS if eating, q6h if npo Since has T1DM will consult for ongoing glycemic control during his inpatient admission (3) Obstructive sleep apnea: Plan: CPAP HS -- patient reports having his home machine brought in tonight (4) Hypokalemia: Plan: Replacement given in the ER, repeat wnl and HCTZ remains on hold for now Last mag 1.9 but in 2020 and will add to AM labs Monitor BMP in AM (5) Psoriasis: Plan: On Tremfya Increase potency of steroid cream to betamethasone BID given signficant appearance and should continue. Monitor OF NOTE, psoriasis associated w/ increased of chronc pancreatitis Plan HTN - Continue losartan, metoprolol, diltiazem, holding HCTZ as above Hypertriglyceridemia - Continue fenofibrate. statin to be on hold given LFT for now VTE proph: SCDs for now, ambulation encouraged. Pending MRCP consider chemoproph if no plans for ERCP Dispo: Continue NPO/IVF/pain control. MRCP ordered. GI consult pending. Possible need for ERCP vs transfer pending testing. Admission and Anticipated Discharge Date Admission Date: May 28, 2024 Supervising Physician Co-Signing Physician Notes The patient was not seen by me. The chart was reviewed. Case discussed with CHALINO Salazar. Agree with assessment and plan Subjective Evaluated this morning, resting in bed. LFTs worse today however patient reports feeling better than on admission. Remains NPO, discussed MRCP ordered and GI consulted. Losartan not new medication but will consider holding, he has alternated in the past with lisinopril/losartan. Holding statin for now to prevent injury. GI to see but discussed may need ERCP pending MRCP results but given improvement in pain ?if passed stone but will monitor. Does have claustrophobia, ativan ordered prior to MRCP as needed. He has DOMINGO and CPAP and reports this is being brought in. Does have psoriasis, has cream on bedside table. Does have subcutaneous edema to right upper abdominal wall from his insulin injections. No fever/chills, chest pain, shortness of breath. No nausea/vomiting. Questions/concerns addressed at this time. Physical Exam Physical Exam: General: 39yo obese male laying in bed, NAD HEENT head atraumatic, normocephalic, eyes anicteric, mmm, trachea midline, thick neck Resp: even/unlabored, no obvious wheezing/rales, remains on room air 96% CV: RRR, no signifciant m/r/g, no pitting edema, calves nontender GI: +BS, slight distension/obese but no overt tenderness, no guarding/rebound, even with deep palpation patient remains without significant discomfort, no hernandez willis sign. does have right anterior upper abdominal wall area from his insulin injections reported no lockett MSK/Neuro: nonfocal, not confused, answering questions appropriately Psych: AOx3, cooperative and pleasant with exam Skin: rash to legs/arms/abd as well as scattered lesions with reported psoriasis Results & Data Results & Data Vital Signs (Past 12 Hours) Vital Signs Temp Pulse Pulse Resp BP Pulse Ox O2 Del Method 05/29/24 07:01 36.3 C L 73 18 148/81 H 96 Room Air 05/29/24 00:32 135/72 05/29/24 00:22 80 12 94 05/28/24 21:28 36.6 C 94 H 15 153/106 H 90 Room Air 05/28/24 21:15 Nasal Cannula, CPAP 05/28/24 21:15 36.6 C 94 H 15 153/106 H 90 Room Air 05/28/24 21:15 Nasal Cannula, CPAP 05/28/24 20:21 98 H 18 161/95 H 97 Room Air O2 Flow Rate 05/29/24 07:01 05/29/24 00:32 05/29/24 00:22 05/28/24 21:28 05/28/24 21:15 2 05/28/24 21:15 05/28/24 21:15 2 05/28/24 20:21 Laboratory Results 05/29/24 05/29/24 05/29/24 Range/Units 05:58 05:32 00:05 WBC 5.83 (4.8-10.8) K/ul RBC 5.01 (4.70-6.10) M/uL Hgb 13.0 L (14.0-18.0) g/dl Hct 40.3 L (42.0-52.0) % MCV 80.4 (80.0-100.0) fL MCH 25.9 (25.0-34.0) pg MCHC 32.3 (32.0-36.0) g/dL RDW Std Deviation 37.5 (36.4-46.3) fL RDW Coeff of Marianne 13.1 (11.5-14.5) % Plt Count 214 (130-400) K/uL MPV 11.5 (9.4-12.4) fL Immature Gran % (Auto) 0.7 % Neut % (Auto) 55.8 % Lymph % (Auto) 27.6 % [place] % (Auto) 11.1 % Eos % (Auto) 3.8 % Baso % (Auto) 1.0 % Neut # (Auto) 3.25 (1.40-6.50) K/uL Lymph # (Auto) 1.61 (1.20-3.40) K/uL [place] # (Auto) 0.65 H (0.11-0.59) K/uL Eos # (Auto) 0.22 (0.00-0.50) K/uL Baso # (Auto) 0.06 (0.00-0.20) K/uL Immature Gran # (Auto) 0.04 (0.01-0.20) K/uL Sodium 138 (136-145) mmol/L Potassium 3.7 (3.5-5.1) mmol/L Chloride 103 (98-107) mmol/L Carbon Dioxide 29 (21-32) mmol/L Anion Gap 6 (3-11) BUN 10 (6-23) mg/dl Creatinine 0.67 (0.6-1.4) mg/dl Est Cr Clr Drug Dosing 204.4 ml/min eGFR 123.33 BUN/Creatinine Ratio 14.9 (10-20) Glucose 192 H (70-99(Fasting)) mg/dl POC Glucose 189 H 271 H (70-99) mg/dl Estimat Average Glucose 203 mg/dl Hemoglobin A1c 8.7 H (4.5-5.6) % Calcium 8.4 L D (8.6-10.3) mg/dl Total Bilirubin 1.4 H D (0.2-1.0) mg/dl Direct Bilirubin (0-0.2) mg/dl AST 938 H (13-39) U/L ALT 489 H (7-52) U/L Alkaline Phosphatase 252 H (34-104) U/L Total Protein 6.1 D (6.0-8.3) gm/dl Albumin 3.1 L (3.4-5.0) gm/dl Globulin 3.0 (2.5-4.0) gm/dl Albumin/Globulin Ratio 1.0 (0.9-2) Triglycerides (0-150) mg/dl Lipase (11-82) U/L Urine Color Urine Appearance (Clear) Urine pH (4.5-7.5) Ur Specific [place] (1.000-1.030) Urine Protein (Negative) Urine Glucose (UA) (Negative) Urine Ketones (Negative) Urine Blood (Negative) Urine Nitrite (Negative) Urine Bilirubin (Negative) Urine Urobilinogen (Negative) Ur Leukocyte Esterase (Negative) Urine WBC (Auto) (0-5) /hpf Urine RBC (Auto) (0-2) /hpf U Hyaline Cast (Auto) (0-2) /lpf U Epithel Cells (Auto) (0-2) /hpf Urine Bacteria (Auto) (None Seen) Hyaline Casts (None Presnt) /lpf 05/28/24 05/28/24 05/28/24 Range/Units 21:52 15:25 14:06 WBC 8.85 (4.8-10.8) K/ul RBC 5.96 (4.70-6.10) M/uL Hgb 15.7 (14.0-18.0) g/dl Hct 46.7 (42.0-52.0) % MCV 78.4 L (80.0-100.0) fL MCH 26.3 (25.0-34.0) pg MCHC 33.6 (32.0-36.0) g/dL RDW Std Deviation 35.8 L (36.4-46.3) fL RDW Coeff of Marianne 12.6 (11.5-14.5) % Plt Count 283 (130-400) K/uL MPV 11.1 (9.4-12.4) fL Immature Gran % (Auto) 0.6 % Neut % (Auto) 71.4 % Lymph % (Auto) 18.3 % [place] % (Auto) 7.9 % Eos % (Auto) 1.1 % Baso % (Auto) 0.7 % Neut # (Auto) 6.32 (1.40-6.50) K/uL Lymph # (Auto) 1.62 (1.20-3.40) K/uL [place] # (Auto) 0.70 H (0.11-0.59) K/uL Eos # (Auto) 0.10 (0.00-0.50) K/uL Baso # (Auto) 0.06 (0.00-0.20) K/uL Immature Gran # (Auto) 0.05 (0.01-0.20) K/uL Sodium 138 (136-145) mmol/L Potassium 3.1 L (3.5-5.1) mmol/L Chloride 97 L (98-107) mmol/L Carbon Dioxide 30 (21-32) mmol/L Anion Gap 11 (3-11) BUN 18 (6-23) mg/dl Creatinine 0.95 (0.6-1.4) mg/dl Est Cr Clr Drug Dosing 143.4 ml/min eGFR 105.72 BUN/Creatinine Ratio 18.9 (10-20) Glucose 132 H (70-99(Fasting)) mg/dl POC Glucose 247 H (70-99) mg/dl Estimat Average Glucose mg/dl Hemoglobin A1c (4.5-5.6) % Calcium 10.7 H (8.6-10.3) mg/dl Total Bilirubin 0.5 (0.2-1.0) mg/dl Direct Bilirubin 0.0 (0-0.2) mg/dl AST 254 H (13-39) U/L ALT 135 H (7-52) U/L Alkaline Phosphatase 190 H (34-104) U/L Total Protein 8.3 (6.0-8.3) gm/dl Albumin 4.3 (3.4-5.0) gm/dl Globulin 4.0 (2.5-4.0) gm/dl Albumin/Globulin Ratio 1.1 (0.9-2) Triglycerides 339 H (0-150) mg/dl Lipase 692 H (11-82) U/L Urine Color Yellow Urine Appearance Clear (Clear) Urine pH 5.5 (4.5-7.5) Ur Specific [place] > 1.045 H (1.000-1.030) Urine Protein 3+ H (Negative) Urine Glucose (UA) Trace H (Negative) Urine Ketones 1+ H (Negative) Urine Blood Negative (Negative) Urine Nitrite Negative (Negative) Urine Bilirubin Negative (Negative) Urine Urobilinogen Negative (Negative) Ur Leukocyte Esterase Negative (Negative) Urine WBC (Auto) 0-5 (0-5) /hpf Urine RBC (Auto) 0-2 (0-2) /hpf U Hyaline Cast (Auto) >20 H (0-2) /lpf U Epithel Cells (Auto) 3-5 H (0-2) /hpf Urine Bacteria (Auto) None Seen (None Seen) Hyaline Casts Present A (None Presnt) /lpf Diagnostic Findings Abdomen/Pelvis CT 05/28/24 14:40 CT abd pelvis IV con only CLINICAL HISTORY: epigastric pain, h/o pancreatitis TECHNIQUE: Helical axial images of the abdomen and pelvis were obtained and displayed. Automated dose lowering techniques and/or adjustment according to patient size were utilized for this exam. This exam was performed with intravenous contrast. CT DOSE: 1593.71 mGy.cm COMPARISON: Comparison is made to CT abdomen pelvis 02/08/2020 FINDINGS: Lower chest: No acute abnormality. Liver: Unremarkable. No focal lesions are seen. Gallbladder and biliary tree: Patient is status post cholecystectomy. Physiologic prominence of the biliary ducts is noted. Pancreas: Soft tissue stranding is seen about the pancreatic head. Multiple calcifications in the duct near the pancreatic head with prominence of the pancreatic duct in the body measuring approximately 7 mm. Spleen: Unremarkable. Adrenals: Unremarkable. 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 Bladder: Unremarkable. Reproductive organs: Unremarkable. Bowel: The appendix is normal. Lymph nodes Retroperitoneal: Unremarkable. Pelvic: Unremarkable. Mesenteric: Subcentimeter lymph nodes are noted. Peritoneum: Fat stranding is seen about the pancreatic head. Vessels: Unremarkable. Abdominal wall: Fat stranding is seen in the anterior abdominal wall, similar to prior exam. Bones: Minimal degenerative changes are seen. IMPRESSION: 1. Acute pancreatitis likely due to obstructed pancreatic duct stones. No evidence of acute peripancreatic collections. 2. Absent left kidney is surgically absent gallbladder. 3. Persistent right anterior abdominal wall swelling. ACT 112: Negative or not required by law. Electronically signed by: Miguelito Saul M.D. 05/28/2024 3:24 PM PG Care Time/CCT Total # of Minutes Spent Total Time Spent with Patient: Total time spent is greater than 50% in coordination of care (as documented) at patient's floor/unit and/or counseling patient: Coding Level of Care Code 94360 SUB INP/OBS CARE 3/50MIN Diagnoses Pancreatitis K85.90 Acute pancreatitis complication: unspecified Chronicity: acute Pancreatitis type: unspecified pancreatitis type Type 1 diabetes mellitus with nephropathy E10.21 Obstructive sleep apnea G47.33 Hypokalemia E87.6 Psoriasis L40.9 (1) Pancreatitis Acute pancreatitis complication: unspecified Chronicity: acute Pancreatitis type: unspecified pancreatitis type Qualified Code(s): K85.90 - Acute pancreatitis without necrosis or infection, unspecified
[2024-05-29] MEDS ORDERED: hydroCHLOROthiazide 25 MG TAB PO SCH (09:00)
[2024-05-29] MEDS ORDERED: INFLUENZA VACC TS2024-25(6m+)/PF (IIV3) 0.5mL Syr IM ONE (09:00)
[2024-05-29] MEDS: LORazepam 2 MG/1 ML VIAL IV PRN (09:40)
[2024-05-29 10:29] LABS: Magnesium 1.5 mg/dl (1.7-2.4)
[2024-05-29] MEDS: PANTOprazole 40 MG/10 ML SYR IV SCH (10:56)
--- NOTE | 2024-05-29 11:12 | Magnetic Resonance Report ---
MRCP CLINICAL HISTORY: panceatitis, obs stones, LFts TECHNIQUE: Utilizing a 1.5 Poly magnet and dedicated coil, multiplanar, multiecho imaging of the [facility] er abdomen was performed utilizing heavily T2 weighted pulsing sequences without IV contrast. COMPARISON STUDY: Abdominal ultrasound August 05, 2022. CT of the abdomen and pelvis May 28, 2024. FINDINGS: No intra or extrahepatic biliary ductal dilatation is identified status post cholecystectom y. The common bile duct measures 6 mm in caliber. No common bile duct calculi are identified although this exam is moderately compromised by motion artifact. Moderate pancreatic ductal dilatation is not ed. The pancreatic duct measures 7 mm in caliber. The calcified calculi within the pancreatic duct at the level the pancreatic head on CT of May 28, 2024 are not well-visualized by MRI. Mild peripa ncreatic stranding and fluid is present. There are no peripancreatic fluid collections. Pancreatic gl andular atrophy is noted. There is mild hepatosplenomegaly. Hepatic steatosis is better depicted on C T. The left kidney is not visualized. There is compensatory hypertrophy of the right kidney. Caliber and wall thickness of visualized small and large bowel are normal. IMPRESSION: 1. Mild peripancreatic stranding and fluid consistent with acute pancreatitis. No peripancreatic flui d collections. This may be related to calculi within the pancreatic duct on CT of May 28, 2024. These calculi are not well-visualized by CT. Associated pancreatic ductal dilatation. Pancreatic glan dular atrophy. The findings favor acute on chronic pancreatitis. A follow-up CT of the abdomen pancre as protocol in 3 months to ensure resolution is recommended to exclude the less likely possibility of an underlying pancreatic lesion. 2. No biliary ductal dilatation status post cholecystectomy. No common bile duct calculi identified a lthough exam mildly compromised by motion artifact. 3. Mild hepatosplenomegaly. Hepatic steatosis, better depicted by CT. ACT 112: Negative or not required by law. Electronically signed by: Noé Rizvi M.D. 05/29/2024 11:11 AM
[2024-05-29] MEDS: INSULIN ASPART PER UNIT CHARGE SC SCH ×3 (11:50→23:57)
--- NOTE | 2024-05-29 12:05 | Gastrointestinal Consultation ---
Date of Consultation May 29, 2024 Assessment & Plan (1) Pancreatitis: Acute exacerbation on chronic pancreatitis, unknown etiology. Now with dilated PD and ? stone. Clinically improving. LFTs may continue to rise for few days but once the peripancreatic inflammation improves they should trend down and normalize. No signs of sepsis. he will need ERCP to be arranged as OP with PD stenting, this can be done in 4 weeks.. Monitor LFTs. Clear liquid diet is fine. Recall GI if any questions or concerns. History of Present Illness Reason for Consultation: Acute pancreatitis Attending Physician: Preston Umana MD History of Present Illness 39 years old male patient with known chronic pancreatitis, unclear etiology despite prior extensive work up, admitted with acute exacerbation, found to have possible PD stone on CT scan with upstream ductal dilation. MRCP done and did not clearly showed the PD stone, no biliary ductal dilation. He now feels much better and pain almost resolved. LFTs are rising along with bilirubin. He is s/p cholecystectomy in the past. Allergies Allergy/AdvReac Type Severity Reaction Status Date / Time No Known Allergies Allergy Verified 05/28/24 11:16 Home Medications Medication Instructions Recorded Confirmed Type blood sugar diagnostic #100 ea 03/15/20 05/28/24 Rx hydrocortisone 2.5 % topical cream 1 applic topical BID PRN skin 02/28/21 05/28/24 Rx irritation #28 grams insulin NPH isoph U-100 human 100 12 unit subcut QPM 04/10/22 05/28/24 History unit/mL (3 mL) subcutaneous pen (Humulin N NPH U-100 Insulin KwikPen) flash glucose sensor (FreeStyle #6 ea 01/03/23 05/28/24 Rx Kimberly 2 Sensor kit) escitalopram oxalate 10 mg tablet 10 mg PO DAILY #90 tabs 02/11/23 05/28/24 Rx (Lexapro) hydrochlorothiazide 25 mg tablet 25 mg PO DAILY #90 tabs 02/11/23 05/28/24 Rx atorvastatin 80 mg tablet 80 mg PO QPM #90 tabs 04/14/23 05/28/24 Rx guselkumab 100 mg/mL subcutaneous 100 mg subcut UD 05/15/23 05/28/24 History auto-injector (Tremfya) icosapent ethyl 1 gram capsule 1 g PO BID #180 caps 07/01/23 05/28/24 Rx (Vascepa) pen needle, diabetic 31 gauge x #400 ea 08/13/23 05/28/24 Rx 3/16" (BD Ultra-Fine Mini Pen Needle) diltiazem HCl 420 mg capsule,24 420 mg PO HS #90 caps 08/28/23 05/28/24 Rx hr,extended release (Tiazac) fenofibrate 160 mg tablet 160 mg PO DAILY #90 tabs 08/28/23 05/28/24 Rx losartan 100 mg tablet 100 mg PO DAILY #90 tabs 08/28/23 05/28/24 Rx metoprolol succinate 50 mg 50 mg PO DAILY #30 tabs 08/28/23 05/28/24 Rx tablet,extended release 24 hr pantoprazole 40 mg tablet,delayed 40 mg PO QAM #90 tabs 10/31/23 05/28/24 Rx release insulin pump cart,automated,BT #15 ea 03/22/24 05/28/24 Rx (Omnipod 5 G6 Pods (Gen 5) subcutaneous cartridge) insulin pump cartridge,automated #1 ea 03/22/24 05/28/24 Rx dose,BT with controller subcutaneous (Omnipod 5 G6 Intro Kit (Gen 5) subcutaneous cartridge with controller) blood-glucose sensor (Dexcom G6 #9 ea 04/19/24 05/28/24 Rx Sensor device) blood-glucose transmitter (Dexcom #1 ea 04/19/24 05/28/24 Rx G6 Transmitter device) insulin glargine U-300 conc 300 96 unit subcut DAILY 05/28/24 05/28/24 History unit/mL (3 mL) subcutaneous pen (Toujeo Max U-300 SoloStar) insulin lispro 200 unit/mL (3 mL) 1 unit subcut TIDWMEAL 05/28/24 05/28/24 History subcutaneous pen (Humalog KwikPen U-200 Insulin) Patient History Medical History Anxiety Congenital absence of kidney Diabetes type I History of pancreatitis Hypertension Hypertriglyceridemia Poorly-controlled hypertension Proteinuria Psoriasis Small bowel obstruction Surgical History Hx of cholecystectomy Family History Mother No pertinent past medical history Father Diabetes type 2 Myocardial infarction Social History Smoking Status: Never smoker Second Hand Exposure: No; Do You Dip or Chew Tobacco: No; Tobacco Cessation Education Requested by Patient: No Hx Alcohol Use: No Hx Substance Use: No Preferred Language: Japanese Communication Ability: Effective Room Service Runner Required: No Beliefs That Will Affect Care: None marital status: Current Living Situation: Spouse and Family Current Living Situation Comment: and 3 Foster Kids. current occupational status: employed current occupation: teacher - [email or web address] How many Children do You have: 0 Other Information That Helps Us Care for You: No other: lives in [place] with Feels Safe at Home: Yes Safety Concerns: Feels Safe At This Time Assistive Devices: Glasses, Hospital Bed and Oxygen - Continuous Review of Systems Review of Systems: All systems reviewed & are unremarkable except as noted in HPI & below Physical Exam Constitutional: comfortable; no acute distress Respiratory: normal respiratory effort, lungs clear to auscultation Cardiovascular: RRR, no murmur, no edema Gastrointestinal (Abdomen): normal bowel sounds, soft, nontender, no h epatosplenomegaly Results & Data Vital Signs (Past 12 Hours) Vital Signs Temp Pulse Pulse Resp BP Pulse Ox O2 Del Method 05/29/24 07:01 36.3 C L 73 18 148/81 H 96 Room Air 05/29/24 00:32 135/72 05/29/24 00:22 80 12 94 Laboratory Results Laboratory Results - last 24 hr 05/28/24 05/28/24 05/28/24 14:06 15:25 21:52 WBC 8.85 RBC 5.96 Hgb 15.7 Hct 46.7 MCV 78.4 L MCH 26.3 MCHC 33.6 RDW Std Deviation 35.8 L RDW Coeff of Marianne 12.6 Plt Count 283 MPV 11.1 Immature Gran % (Auto) 0.6 Neut % (Auto) 71.4 Lymph % (Auto) 18.3 [place] % (Auto) 7.9 Eos % (Auto) 1.1 Baso % (Auto) 0.7 Neut # (Auto) 6.32 Lymph # (Auto) 1.62 [place] # (Auto) 0.70 H Eos # (Auto) 0.10 Baso # (Auto) 0.06 Immature Gran # (Auto) 0.05 Sodium 138 Potassium 3.1 L Chloride 97 L Carbon Dioxide 30 Anion Gap 11 BUN 18 Creatinine 0.95 Est Cr Clr Drug Dosing 143.4 eGFR 105.72 BUN/Creatinine Ratio 18.9 Glucose 132 H POC Glucose 247 H Estimat Average Glucose Hemoglobin A1c Calcium 10.7 H Magnesium Total Bilirubin 0.5 Direct Bilirubin 0.0 AST 254 H ALT 135 H Alkaline Phosphatase 190 H Total Protein 8.3 Albumin 4.3 Globulin 4.0 Albumin/Globulin Ratio 1.1 Triglycerides 339 H Lipase 692 H Urine Color Yellow Urine Appearance Clear Urine pH 5.5 Ur Specific [place] > 1.045 H Urine Protein 3+ H Urine Glucose (UA) Trace H Urine Ketones 1+ H Urine Blood Negative Urine Nitrite Negative Urine Bilirubin Negative Urine Urobilinogen Negative Ur Leukocyte Esterase Negative Urine WBC (Auto) 0-5 Urine RBC (Auto) 0-2 U Hyaline Cast (Auto) >20 H U Epithel Cells (Auto) 3-5 H Urine Bacteria (Auto) None Seen Hyaline Casts Present A 05/29/24 05/29/24 05/29/24 00:05 05:32 05:58 WBC 5.83 RBC 5.01 Hgb 13.0 L Hct 40.3 L MCV 80.4 MCH 25.9 MCHC 32.3 RDW Std Deviation 37.5 RDW Coeff of [place] 13.1 Plt Count 214 MPV 11.5 Immature Gran % (Auto) 0.7 Neut % (Auto) 55.8 Lymph % (Auto) 27.6 [place] % (Auto) 11.1 Eos % (Auto) 3.8 Baso % (Auto) 1.0 Neut # (Auto) 3.25 Lymph # (Auto) 1.61 [place] # (Auto) 0.65 H Eos # (Auto) 0.22 Baso # (Auto) 0.06 Immature Gran # (Auto) 0.04 Sodium 138 Potassium 3.7 Chloride 103 Carbon Dioxide 29 Anion Gap 6 BUN 10 Creatinine 0.67 Est Cr Clr Drug Dosing 204.4 eGFR 123.33 BUN/Creatinine Ratio 14.9 Glucose 192 H POC Glucose 271 H 189 H Estimat Average Glucose 203 Hemoglobin A1c 8.7 H Calcium 8.4 L D Magnesium 1.5 L Total Bilirubin 1.4 H D Direct Bilirubin AST 938 H ALT 489 H Alkaline Phosphatase 252 H Total Protein 6.1 D Albumin 3.1 L Globulin 3.0 Albumin/Globulin Ratio 1.0 Triglycerides Lipase 241 H Urine Color Urine Appearance Urine pH Ur Specific [place] Urine Protein Urine Glucose (UA) Urine Ketones Urine Blood Urine Nitrite Urine Bilirubin Urine Urobilinogen Ur Leukocyte Esterase Urine WBC (Auto) Urine RBC (Auto) U Hyaline Cast (Auto) U Epithel Cells (Auto) Urine Bacteria (Auto) Hyaline Casts 05/29/24 11:26 WBC RBC Hgb Hct MCV MCH MCHC RDW Std Deviation RDW Coeff of [place] Plt Count MPV Immature Gran % (Auto) Neut % (Auto) Lymph % (Auto) [place] % (Auto) Eos % (Auto) Baso % (Auto) Neut # (Auto) Lymph # (Auto) [place] # (Auto) Eos # (Auto) Baso # (Auto) Immature Gran # (Auto) Sodium Potassium Chloride Carbon Dioxide Anion Gap BUN Creatinine Est Cr Clr Drug Dosing eGFR BUN/Creatinine Ratio Glucose POC Glucose 230 H Estimat Average Glucose Hemoglobin A1c Calcium Magnesium Total Bilirubin Direct Bilirubin AST ALT Alkaline Phosphatase Total Protein Albumin Globulin Albumin/Globulin Ratio Triglycerides Lipase Urine Color Urine Appearance Urine pH Ur Specific [place] Urine Protein Urine Glucose (UA) Urine Ketones Urine Blood Urine Nitrite Urine Bilirubin Urine Urobilinogen Ur Leukocyte Esterase Urine WBC (Auto) Urine RBC (Auto) U Hyaline Cast (Auto) U Epithel Cells (Auto) Urine Bacteria (Auto) Hyaline Casts (1) Pancreatitis Acute pancreatitis complication: unspecified Chronicity: acute Pancreatitis type: unspecified pancreatitis type Qualified Code(s): K85.90 - Acute pancreatitis without necrosis or infection, unspecified
--- NOTE | 2024-05-29 15:15 | Pharmacy Report ---
Pharmacy Glycemic Short Note 2 - Date of Service May 29, 2024 - Glycemic Short BSG Results (Last 24 hours): 05/28/24 05/29/24 05/29/24 21:52 00:05 05:32 Glucose 192 H POC Glucose 247 H 271 H 05/29/24 05/29/24 05:58 11:26 Glucose POC Glucose 189 H 230 H OUTPATIENT ANTIDIABETIC REGIMEN: * Toujeo 96 units QPM * insulin NPH 12 units QPM * Humalog TIDM (CR 1 unit for every 3-4 carbs) * HbA1c 8.7% (05/29/24) ASSESSMENT: * Alexander is a 39 YOM admitted with pancreatitis and a history of T1DM. Pharmacy has been consulted to assist with glycemic management while inpatient. * Fasting BSG this AM slightly elevated, basal insulin given yesterday at about 80% of home dosing due to NPO status. Will allow for up to 90% of home basal dosage tonight if BSGs are above goal range due to diet advancement. * Novolog initiated at home carbohydrate ratio, correction factor at a weight based stress of 2.5, tightened this AM to approximately a weight based stress of 3. PLAN FOR INPATIENT GLYCEMIC CONTROL: * Hold outpatient oral diabetes medications * Basal insulin * Lantus 75-85 units SQ HS (85 units if BSG above goal range) * Bolus insulin * NovoLog per scale ACHS or Q6hrs while NPO * Goal Range: Low 110 mg/dL - High 150 mg/dL * Correction Factor: 12 mg/dL/unit * Nutritional / Prandial insulin per carb ratio of 1 unit per 4 grams CHO consumed
[2024-05-29] MEDS: KETOROLAC TROMETHAMINE 15 MG/ML VIAL IV PRN (17:10)
[2024-05-29] MEDS: LANTUS PER UNIT CHARGE SQ SCH (20:45)
--- NOTE | 2024-05-30 06:40 | Electrocardiogram Report ---
Test Reason : Blood Pressure : */* mmHG Vent. Rate : 121 BPM Atrial Rate : 121 BPM P-R Int : 146 ms QRS Dur : 82 ms QT Int : 336 ms P-R-T Axes : 34 3 -18 degrees QTcB Int : 477 ms Sinus tachycardia Nonspecific ST and T wave abnormality Abnormal ECG When compared with ECG of 29-Jan-2020 09:03, Nonspecific T wave abnormality now evident in Lateral leads Confirmed by Dmitri Covington ([id number]) on 05/30/2024 6:39:40 AM Referred By: Confirmed By: Dmitri Covington
[2024-05-30 07:30] LABS: Hematocrit (blood only) 41.6 % (42.0-52.0); Hemoglobin 13.7 g/dl (14.0-18.0); Mean Corpuscular Hemoglobin 26.3 pg (25.0-34.0); Mean Corpuscular Hgb Conc 32.9 g/dL (32.0-36.0); Mean Corpuscular Volume 79.8 fL (80.0-100.0); Mean Platelet Volume 11.2 fL (9.4-12.4); Platelet Count 221 K/uL (130-400); RDW Coefficient of Variation 12.9 % (11.5-14.5); RDW Standard Deviation 36.9 fL (36.4-46.3); Red Blood Count 5.21 M/uL (4.70-6.10); White Blood Count 8.49 K/ul (4.8-10.8)
[2024-05-30 07:54] LABS: Prothrombin Time 10.9 Seconds (9.0-12.0)
[2024-05-30 07:59] LABS: Albumin Level 3.3 gm/dl (3.4-5.0); BUN Creatinine Ratio 9.2 (10-20); Bilirubin Direct 0.1 mg/dl (0-0.2); Bilirubin,Total 0.9 mg/dl (0.2-1.0); Calcium 8.5 mg/dl (8.6-10.3); Creatinine Clr Calc Pharmacy 157.4 ml/min; Potassium 3.6 mmol/L (3.5-5.1); Total Protein 6.6 gm/dl (6.0-8.3)
--- NOTE | 2024-05-30 08:39 | Hospitalist Progress Note ---
Date of Service May 30, 2024 Assessment & Plan (1) Pancreatitis: Plan: CTAP on admission Acute pancreatitis likely due to obstructed pancreatic duct stones. No evidence of acute peripancreatic collections. LFTs elevated (absent GB), Lipase 692. TRG 339. TB was 0.5 2L bolus in ER, continued on plasmalyte @150cc/hr Triglycerides elevated , continues on home meds. Do not suspect as cause, does have underlying psoriasis which can contribute and that is NOT well controlled, could be contributing GI consulted Pain control/antiemetics NPO, IVF ordered. --HCTZ on hold, statin placed on hold given LFT elevation LFTs worse on 05/29 MRCP ordered--> NO obstruction, ?passed stone Per GI, can stay here/plan for outpt ERCP. Ok w/ clear liquid diet which has been ordered Provided continued IVF overnight 05/29-05/30 LFTs w/ IMPROVEMENT. TB normalized. AST/ALT improved 428/457. --ALP remains elevated 367, ?2nd to Vit D deficiency NO pain on exam today. IVF to complete 5L Will plan to advance to full liquid diet/possible low fat in AM and planning for ERCP outpatient in 4 wks to clean out pancreatic duct. Continue to hold diuretics for now Vit D level checked given elevated Ca/stones and underlying psoriasis given suspected deficiency/uncontrolled. --> Vit D LOW. 125mcg PO supplementation started Should have f/u dermatology for ongoing management of his psoriasis as recently switched to Tremfyu MCV <80, will check iron studies. ?w/ psoriasis, ?underlying celiac. Monitor labs/exam in AM, possible discharge (2) Type 1 diabetes mellitus with nephropathy: Plan: A1c 8.7, T1DM Usual basal dosing w/ Toujeo 96 units, Pharmacy consulted for glycemic management and POC have been acceptable Diet to be advanced as above, appreciate assistance (3) Psoriasis: Plan: On Tremfya-- was prior controlled on humira and has been on Cosentyx in past but recently now on Tremfya Psoriasis DIFFUSE, per had flair prior to his pancreatitis OF NOTE, psoriasis associated w/ increased of chronic pancreatitis ?as above if contributing Betamethasone increased BID with IMPROVEMENT in rash and would CONTINUE BID dosing at discharge Vit D checked/LOW as outlined (correlates w/ worse disease) --> should be continued on replacement at sc Discussed should discuss w/ dermatology if NOT improving should consider short course of steroids/switch to alertnative agent. (4) Vitamin D deficiency: Plan: Vit D checked given elevated Ca and hx stones --> Vit D LOW <7 --> Will start 125mcg PO daily and should be continued at sc. Not lower level vitamin D levels can contribute to more severe disease and should be on replacement given deficiency as well as UNCONTROLLED psoriasis (5) Obstructive sleep apnea: Plan: CPAP HS -- home machine brought in (6) Hypokalemia: Plan: Replacement given in the ER, repeat wnl and HCTZ remains on hold for now Last mag 1.9 but in 2019 and will add to AM labs --> not notified but result reviewed and LOW at 1.5. Will order 2gm IV/add to todays labs and additional replacement as needed. Will monitor on repeat Plan HTN - Continue losartan, metoprolol, diltiazem, continued. holding HCTZ as above Hypertriglyceridemia - Continue fenofibrate. statin to be on hold given LFT for now w/ improvement in AST/ALT but not ALP (however Vit D def noted) VTE proph: SCDs for now, no evidence for DVT> Has been ambulating. Consideration for chemoproph but will defer for now but if ongoing issues/staying past tomorrow will plan to add Dispo: continued inpatient stay, IVF through today, diet advanced to full liquids. Mag IV replacement/Vit D. Continue steroid cream. Hopeful adv to low fat diet in AM and will plan for GI follow up for ERCP outpatient. Will need derm to follow. Admission and Anticipated Discharge Date Admission Date: May 28, 2024 Supervising Physician Co-Signing Physician Notes The patient was not seen by me. The chart was reviewed. Case discussed with CHALINO Salazar. Agree with assessment and plan Subjective Gunjan this morning. No abdominal pain today/tolerating liquid diet. Discussed adv to full liquid today. LFTs stable. Planning for outpt ERCP but would continue low fat diet at sc. Discussed psoriasis, rash appears improved today. Vit D checked/Low/replacement ordered and would continue at sc. Hopeful dc but wanting to increase slowly to prevent issues and if stable w/ advancement will dc in AM with GI follow up. No fever/chills, no CP/SOB. Questions/concerns addressed at this time. Physical Exam Physical Exam: General: 39yo obese male laying in bed, NAD HEENT head atraumatic, normocephalic, eyes anicteric, mmm, trachea midline, thick neck Resp: even/unlabored, no obvious wheezing/rales, remains on room air 96% CV: RRR, no significant m/r/g, no pitting edema, calves nontender GI: +BS, +distension but no overt tenderness/guarding, no rebound, no hernandez willis sign. does have right anterior upper abdominal wall area from his insulin injections reported no lockett MSK/Neuro: nonfocal, not confused, answering questions appropriately Psych: AOx3, cooperative and pleasant with exam Skin: rash to legs/arms/abd as well as scattered lesions with reported psoriasis (IMPROVING compared to yesterday) Results & Data Results & Data Vital Signs (Past 12 Hours) Vital Signs Temp Pulse Resp BP Pulse Ox O2 Del Method 05/30/24 07:19 36.5 C 86 18 127/80 95 Room Air 05/29/24 20:41 Room Air, CPAP Laboratory Results 05/30/24 05/30/24 05/30/24 Range/Units 11:39 07:58 07:06 WBC 8.49 (4.8-10.8) K/ul RBC 5.21 (4.70-6.10) M/uL Hgb 13.7 L (14.0-18.0) g/dl Hct 41.6 L (42.0-52.0) % MCV 79.8 L (80.0-100.0) fL MCH 26.3 (25.0-34.0) pg MCHC 32.9 (32.0-36.0) g/dL RDW Std Deviation 36.9 (36.4-46.3) fL RDW Coeff of Marianne 12.9 (11.5-14.5) % Plt Count 221 (130-400) K/uL MPV 11.2 (9.4-12.4) fL PT 10.9 (9.0-12.0) Seconds INR 1.0 (0.9-1.1) Sodium 145 (136-145) mmol/L Potassium 3.6 (3.5-5.1) mmol/L Chloride 107 (98-107) mmol/L Carbon Dioxide 29 (21-32) mmol/L Anion Gap 9 (3-11) BUN 8 (6-23) mg/dl Creatinine 0.87 (0.6-1.4) mg/dl Est Cr Clr Drug Dosing 157.4 ml/min eGFR 113.97 BUN/Creatinine Ratio 9.2 L (10-20) Glucose 120 H (70-99(Fasting)) mg/dl POC Glucose 181 H 113 H (70-99) mg/dl Calcium 8.5 L (8.6-10.3) mg/dl Iron 49 (35-175) mcg/dl TIBC 246 L (250-450) mcg/dl Transferrin 176 L (200-360) mg/dl Transferrin % Sat 20 (20-50) % Ferritin 316.4 (8-388) ng/ml Total Bilirubin 0.9 D (0.2-1.0) mg/dl Direct Bilirubin 0.1 (0-0.2) mg/dl AST 428 H (13-39) U/L ALT 457 H (7-52) U/L Alkaline Phosphatase 367 H (34-104) U/L Total Protein 6.6 (6.0-8.3) gm/dl Albumin 3.3 L (3.4-5.0) gm/dl 25-OH Vitamin D Total < 7.0 L (30-100) ng/ml 05/30/24 05/29/24 05/29/24 Range/Units 04:07 23:48 20:29 WBC (4.8-10.8) K/ul RBC (4.70-6.10) M/uL Hgb (14.0-18.0) g/dl Hct (42.0-52.0) % MCV (80.0-100.0) fL MCH (25.0-34.0) pg MCHC (32.0-36.0) g/dL RDW Std Deviation (36.4-46.3) fL RDW Coeff of Marianne (11.5-14.5) % Plt Count (130-400) K/uL MPV (9.4-12.4) fL PT (9.0-12.0) Seconds INR (0.9-1.1) Sodium (136-145) mmol/L Potassium (3.5-5.1) mmol/L Chloride (98-107) mmol/L Carbon Dioxide (21-32) mmol/L Anion Gap (3-11) BUN (6-23) mg/dl Creatinine (0.6-1.4) mg/dl Est Cr Clr Drug Dosing ml/min eGFR BUN/Creatinine Ratio (10-20) Glucose (70-99(Fasting)) mg/dl POC Glucose 104 H 108 H 148 H (70-99) mg/dl Calcium (8.6-10.3) mg/dl Iron (35-175) mcg/dl TIBC (250-450) mcg/dl Transferrin (200-360) mg/dl Transferrin % Sat (20-50) % Ferritin (8-388) ng/ml Total Bilirubin (0.2-1.0) mg/dl Direct Bilirubin (0-0.2) mg/dl AST (13-39) U/L ALT (7-52) U/L Alkaline Phosphatase (34-104) U/L Total Protein (6.0-8.3) gm/dl Albumin (3.4-5.0) gm/dl 25-OH Vitamin D Total (30-100) ng/ml 05/29/24 Range/Units 17:02 WBC (4.8-10.8) K/ul RBC (4.70-6.10) M/uL Hgb (14.0-18.0) g/dl Hct (42.0-52.0) % MCV (80.0-100.0) fL MCH (25.0-34.0) pg MCHC (32.0-36.0) g/dL RDW Std Deviation (36.4-46.3) fL RDW Coeff of Marianne (11.5-14.5) % Plt Count (130-400) K/uL MPV (9.4-12.4) fL PT (9.0-12.0) Seconds INR (0.9-1.1) Sodium (136-145) mmol/L Potassium (3.5-5.1) mmol/L Chloride (98-107) mmol/L Carbon Dioxide (21-32) mmol/L Anion Gap (3-11) BUN (6-23) mg/dl Creatinine (0.6-1.4) mg/dl Est Cr Clr Drug Dosing ml/min eGFR BUN/Creatinine Ratio (10-20) Glucose (70-99(Fasting)) mg/dl POC Glucose 200 H (70-99) mg/dl Calcium (8.6-10.3) mg/dl Iron (35-175) mcg/dl TIBC (250-450) mcg/dl Transferrin (200-360) mg/dl Transferrin % Sat (20-50) % Ferritin (8-388) ng/ml Total Bilirubin (0.2-1.0) mg/dl Direct Bilirubin (0-0.2) mg/dl AST (13-39) U/L ALT (7-52) U/L Alkaline Phosphatase (34-104) U/L Total Protein (6.0-8.3) gm/dl Albumin (3.4-5.0) gm/dl 25-OH Vitamin D Total (30-100) ng/ml Diagnostic Findings Cholangiopancreatography MRI 05/29/24 08:04 MRCP CLINICAL HISTORY: panceatitis, obs stones, LFts TECHNIQUE: Utilizing a 1.5 Poly magnet and dedicated coil, multiplanar, multiecho imaging of the upper abdomen was performed utilizing heavily T2 weighted pulsing sequences without IV contrast. COMPARISON STUDY: Abdominal ultrasound August 05, 2022. CT of the abdomen and pelvis May 28, 2024. FINDINGS: No intra or extrahepatic biliary ductal dilatation is identified status post cholecystectomy. The common bile duct measures 6 mm in caliber. No common bile duct calculi are identified although this exam is moderately compromised by motion artifact. Moderate pancreatic ductal dilatation is noted. The pancreatic duct measures 7 mm in caliber. The calcified calculi within the pancreatic duct at the level the pancreatic head on CT of May 28, 2024 are not well-visualized by MRI. Mild peripancreatic stranding and fluid is present. There are no peripancreatic fluid collections. Pancreatic glandular atrophy is noted. There is mild hepatosplenomegaly. Hepatic steatosis is better depicted on CT. The left kidney is not visualized. There is compensatory hypertrophy of the right kidney. Caliber and wall thickness of visualized small and large bowel are normal. IMPRESSION: 1. Mild peripancreatic stranding and fluid consistent with acute pancreatitis. No peripancreatic fluid collections. This may be related to calculi within the pancreatic duct on CT of May 28, 2024. These calculi are not well- visualized by CT. Associated pancreatic ductal dilatation. Pancreatic glandular atrophy. The findings favor acute on chronic pancreatitis. A follow-up CT of the abdomen pancreas protocol in 3 months to ensure resolution is recommended to exclude the less likely possibility of an underlying pancreatic lesion. 2. No biliary ductal dilatation status post cholecystectomy. No common bile duct calculi identified although exam mildly compromised by motion artifact. 3. Mild hepatosplenomegaly. Hepatic steatosis, better depicted by CT. ACT 112: Negative or not required by law. Electronically signed by: Noé Rizvi M.D. 05/29/2024 11:11 AM PG Care Time/CCT Total # of Minutes Spent Total Time Spent with Patient: Total time spent is greater than 50% in coordination of care (as documented) at patient's floor/unit and/or counseling patient: Coding Level of Care Code 35466 SUB INP/OBS CARE 350MIN Diagnoses Pancreatitis K85.90 Acute pancreatitis complication: unspecified Chronicity: acute Pancreatitis type: unspecified pancreatitis type Type 1 diabetes mellitus with nephropathy E10.21 Psoriasis L40.9 Vitamin D deficiency E55.9 Obstructive sleep apnea G47.33 Hypokalemia E87.6 (1) Pancreatitis Acute pancreatitis complication: unspecified Chronicity: acute Pancreatitis type: unspecified pancreatitis type Qualified Code(s): K85.90 - Acute pancreatitis without necrosis or infection, unspecified
[2024-05-30] MEDS: CHOLECALCIFEROL 125 MCG (5,000 UNITS) TAB PO SCH (09:47)
[2024-05-30 09:52] LABS: Ferritin 316.4 ng/ml (8-388)
--- NOTE | 2024-05-30 11:44 | Gastroenterology Progress Note ---
Date of Service May 30, 2024 Assessment & Plan Admission and Anticipated Discharge Date Admission Date: May 28, 2024 Subjective Continues to improve and LFTs trending down. Continue supportive care and hydration. Diet as tolerated. Plan for ERCP as OP in 4 weeks. Recall if needed. Results & Data Vital Signs (Past 12 Hours) Vital Signs Temp Pulse Resp BP Pulse Ox O2 Del Method 05/30/24 07:19 36.5 C 86 18 127/80 95 Room Air
[2024-05-30 13:13] LABS: Magnesium 1.8 mg/dl (1.7-2.4)
[2024-05-30] MEDS: MAGNESIUM SULFATE / D5W 1 GM/100 ML BAG IV SCH (13:18)
[2024-05-30 19:46] VITALS: RESP 20; TEMP 97.9; O2SAT 94
[2024-05-30] MEDS ORDERED: LANTUS PER UNIT CHARGE SQ SCH (21:00)
[2024-05-30] MEDS: LANTUS PER UNIT CHARGE SQ ONE (21:42)
[2024-05-31] MEDS: INSULIN ASPART PER UNIT CHARGE SC ONE (02:49)
[2024-05-31 06:13] VITALS: BP 152/96; PULSE 74
[2024-05-31 08:18] LABS: Basophils # (auto) 0.09 K/uL (0.00-0.20); Basophils % (auto) 0.9 %; Eosinophils # (auto) 0.28 K/uL (0.00-0.50); Eosinophils % (auto) 2.9 %; Hematocrit (blood only) 43.6 % (42.0-52.0); Hemoglobin 14.4 g/dl (14.0-18.0); Immature Granulocytes # (auto) 0.17 K/uL (0.01-0.20); Immature Granulocytes % (auto) 1.8 %; Lymphocytes # (auto) 2.17 K/uL (1.20-3.40); Lymphocytes % (auto) 22.8 %; Mean Corpuscular Hemoglobin 26.5 pg (25.0-34.0); Mean Corpuscular Volume 80.1 fL (80.0-100.0); Mean Platelet Volume 10.7 fL (9.4-12.4); Monocytes # (auto) 0.62 K/uL (0.11-0.59); Monocytes % (auto) 6.5 %; Neutrophils % (auto) 65.1 %; Platelet Count 253 K/uL (130-400); RDW Standard Deviation 37.1 fL (36.4-46.3); Red Blood Count 5.44 M/uL (4.70-6.10); White Blood Count 9.53 K/ul (4.8-10.8)
[2024-05-31 08:38] LABS: Albumin Globulin Ratio 0.9 (0.9-2); Albumin Level 3.4 gm/dl (3.4-5.0); BUN Creatinine Ratio 5.5 (10-20); Bilirubin,Total 0.6 mg/dl (0.2-1.0); Calcium 8.8 mg/dl (8.6-10.3); Creatinine Clr Calc Pharmacy 187.6 ml/min; Globulin 3.7 gm/dl (2.5-4.0); Magnesium 1.8 mg/dl (1.7-2.4); Potassium 3.5 mmol/L (3.5-5.1); Total Protein 7.1 gm/dl (6.0-8.3)
[2024-05-31] MEDS ORDERED: oxyCODONE HCL IR 5 MG TAB (IMMEDIATE RELEASE) PO PRN (08:42)
--- NOTE | 2024-05-31 08:43 | Hospitalist Progress Note ---
Date of Service May 31, 2024 Assessment & Plan (1) Pancreatitis: Plan: CTAP on admission Acute pancreatitis likely due to obstructed pancreatic duct stones. No evidence of acute peripancreatic collections. LFTs elevated (absent GB), Lipase 692. TRG 339. TB was 0.5 2L bolus in ER, continued on plasmalyte @150cc/hr Triglycerides elevated , continues on home meds. Do not suspect as cause, does have underlying psoriasis which can contribute and that is NOT well controlled, could be contributing GI consulted Pain control/antiemetics NPO, IVF ordered. --HCTZ on hold, statin placed on hold given LFT elevation LFTs worse on 05/29 MRCP ordered--> NO obstruction, ?passed stone Per GI, can stay here/plan for outpt ERCP. Ok w/ clear liquid diet which has been ordered Provided continued IVF overnight 05/29-05/30 LFTs w/ IMPROVEMENT. TB normalized. AST/ALT improved 428/457. --ALP remains elevated 367, ?2nd to Vit D deficiency NO pain on exam today. IVF to complete 5L Will plan to advance to full liquid diet/possible low fat in AM and planning for ERCP outpatient in 4 wks to clean out pancreatic duct. Continue to hold diuretics for now Vit D level checked given elevated Ca/stones and underlying psoriasis given suspected deficiency/uncontrolled. --> Vit D LOW. 125mcg PO supplementation started Should have f/u dermatology for ongoing management of his psoriasis as recently switched to Tremfyu MCV <80, will check iron studies. ?w/ psoriasis, ?underlying celiac. Monitor labs/exam in AM, possible discharge (2) Type 1 diabetes mellitus with nephropathy: Plan: A1c 8.7, T1DM Usual basal dosing w/ Toujeo 96 units, Pharmacy consulted for glycemic management and POC have been acceptable Diet to be advanced as above, appreciate assistance (3) Psoriasis: Plan: On Tremfya-- was prior controlled on humira and has been on Cosentyx in past but recently now on Tremfya Psoriasis DIFFUSE, per had flair prior to his pancreatitis OF NOTE, psoriasis associated w/ increased of chronic pancreatitis ?as above if contributing Betamethasone increased BID with IMPROVEMENT in rash and would CONTINUE BID dosing at discharge Vit D checked/LOW as outlined (correlates w/ worse disease) --> should be continued on replacement at or Discussed should discuss w/ dermatology if NOT improving should consider short course of steroids/switch to alertnative agent. (4) Vitamin D deficiency: Plan: Vit D checked given elevated Ca and hx stones --> Vit D LOW <7 --> Will start 125mcg PO daily and should be continued at dc. Not lower level vitamin D levels can contribute to more severe disease and should be on replacement given deficiency as well as UNCONTROLLED psoriasis (5) Obstructive sleep apnea: Plan: CPAP HS -- home machine brought in (6) Hypokalemia: Plan: Replacement given in the ER, repeat wnl and HCTZ remains on hold for now Last mag 1.9 but in 2019 and will add to AM labs --> not notified but result reviewed and LOW at 1.5. Will order 2gm IV/add to todays labs and additional replacement as needed. Will monitor on repeat Plan HTN - Continue losartan, metoprolol, diltiazem, continued. holding HCTZ as above Hypertriglyceridemia - Continue fenofibrate. statin to be on hold given LFT for now w/ improvement in AST/ALT but not ALP (however Vit D def noted) VTE proph: SCDs for now, no evidence for DVT> Has been ambulating. Consideration for chemoproph but will defer for now but if ongoing issues/staying past tomorrow will plan to add Dispo: continued inpatient stay, IVF through today, diet advanced to full liquids. Mag IV replacement/Vit D. Continue steroid cream. Hopeful adv to low fat diet in AM and will plan for GI follow up for ERCP outpatient. Will need derm to follow. Admission and Anticipated Discharge Date Admission Date: May 28, 2024 Subjective eval this morning, doing well tolerated low fat diet, NO pain. Planning for dc after lunch on low fat diet, ERCP outpatient to be arranged. Rahs improving, continue cream BID as scheduled, follow up dermatology as well as continue VIT D supplementation. Questions/concerns addressed at tis time. Results & Data Results & Data Vital Signs (Past 12 Hours) Vital Signs Temp Pulse Resp BP Pulse Ox O2 Del Method 05/31/24 06:11 36.6 C 74 20 152/96 H 94 Room Air PG Care Time/CCT Total # of Minutes Spent Total Time Spent with Patient: Total time spent is greater than 50% in coordination of care (as documented) at patient's floor/unit and/or counseling patient: Coding Diagnoses Pancreatitis K85.90 Acute pancreatitis complication: unspecified Chronicity: acute Pancreatitis type: unspecified pancreatitis type Type 1 diabetes mellitus with nephropathy E10.21 Psoriasis L40.9 Vitamin D deficiency E55.9 Obstructive sleep apnea G47.33 Hypokalemia E87.6 (1) Pancreatitis Acute pancreatitis complication: unspecified Chronicity: acute Pancreatitis type: unspecified pancreatitis type Qualified Code(s): K85.90 - Acute pancreatitis without necrosis or infection, unspecified
--- NOTE | 2024-05-31 10:38 | Discharge Summary ---
Discharge Summary Date of Service May 31, 2024 Principal Dx & Hospital Course #1 = Principal Diagnosis (1) Pancreatitis: 39 yo male presented with acute on chronic pancreatitis with epigastric pain. Prior episodes 2nd to elevated TRG but CTAP on admission concerning for obstructive pancreatic stones, no fluid collection noted. Is s/p cholecystectomy LFTs elevated (absent GB) on admission with lipase 692. TRG 339. GI consulted and made NPO/IVF/pain control ordered Underwent MRCP which did not show obstruction and ?if passed stone. -- > per discussion w/ GI robert Billings to adv diet as tolerated to low fat which was done and patient denied pain and was to continue low fat diet at discharge with outpatient GI follow up for ERCP with PD stenting in 4 weeks. Patient did GREAT with advancement of diet and LFTs actually trending down de spite GI suspecting remaining elevated for a bit prior to normalizing. NO epigastric pain on examination 05/31, stable for discharge Did discuss with patient his underlying psoriasis that is not controlled can contribute to pancreatitis as well. Recently was switched to Tremfyu and on hydrocortisone cream BID but had diffuse rash and was IMPROVED with switching his topical agent to Betamethasone BID and discussed to continue such at discharge with follow up with dermatology. We also checked Vit D which can be related to worse disease and was LOW <7 and placed on PO supplementation which was continued at discharge. Re: Hypertriglyceridemia, was continued on fenofibrate but statin held for 2 days given LFT elevation but resumed at dc (can be discussed in f/u) (2) Type 1 diabetes mellitus with nephropathy: A1c 8.7, T1DM Pharmacy consulted while inpatient and assistance appreciated Can resume usual regimen at dc as diet advanced. (3) Psoriasis: On Tremfya-- was prior controlled on humira and has been on Cosentyx in past but recently now on Tremfya Psoriasis DIFFUSE, per had flair prior to his pancreatitis OF NOTE, psoriasis associated w/ increased risk of chronic pancreatitis and ? if contributing as above Betamethasone increased BID with IMPROVEMENT in rash and CONTINUE BID dosing at discharge as well as VITAMIN D supplementation and recs for dermatology f/u for ongoing management (4) Vitamin D deficiency: Vit D checked given elevated Ca and hx stones --> Vit D LOW <7 --> Started 125mcg PO daily as above and continued at dc given note lower level vit D can contribute to more severe disease w/ his psoriasis (5) Obstructive sleep apnea: CPAP HS (6) Hypokalemia: Replacement ordered/resolved on repeat. Likely from HCTZ use which was placed on hold on admission while hydrating and resumed at discharge. Replacement given in the ER, repeat wnl and HCTZ remains on hold for now Last mag 1.9 but in 2019 and will add to AM labs --> not notified but result reviewed and LOW at 1.5. Will order 2gm IV/add to todays labs and additional replacement as needed. Will monitor on repeat Plan Dispo: discharged on low fat diet with plans for outpt GI follow up for ERCP in 4 wks. Discussed to return if any worsening Notes For Next Care Provider Ensure GI follow up arranged for ERCP in 4 wks, CM to have sent ref to get scheduled but should be follow up/ensured arranged. A follow-up CT of the abdomen pancreas protocol in 3 months to ensure resolution is recommended to exclude the less likely possibility of an underlying pancreatic lesion. Ensure follow up with dermatology/improvement in psoriasis. Did change topical agent/Vit D replacement with good results while inpatient. Consideration to hold statin for another couple days/if needed Medication Changes From Visit Betamethasone topical BID Vitamin D 125mcg PO daily Admission HPI Per Admitting Provider Alexander Miranda is a 39 year old male with recurrent episodes of pancreatitis who presents to the ER with epigastric pain. Previous pancreatitis episodes suspected to be secondary to hypertriglyceridemia however current CT concerning for obstructive pancreatic stones. He reports his current episode started 4 days ago on May 19. Epigastric pain constant without radiation, associated nausea but no vomiting. No fever or chills. Severity currently 4/10 after morphine given in the ER, at worse it has been 8-9/10. He reports his pancreatitis usually resolves with conservative measures with IV pain medication and fluids. ER Discussed with gastroenterology given obstructive pancreatic stones seen with elevated transaminitis - recommended no urgent need for ERCP at this time, trial of conservative management with bowel rest and IV fluids and may need outpatient ERCP. Admission Exam Per Admitting Provider Constitutional: WD/WN, vitals as above Eyes: + anicteric sclerae; normal pupil size ENMT: external ear and nose normal, oropharynx normal Respiratory: normal respiratory effort, lungs clear to auscultation Cardiovascular: Rate/Rhythm: regular rhythm and + tachycardic Heart Sounds: no murmur Extremities: normal capillary refill; no calf tenderness and no pedal edema Gastrointestinal (Abdomen): Inspection/Auscultation: abdomen normal to inspection; abdomen not distended Percussion/Palpation: + abdomen tender (epigastric pain) and abdomen soft Skin: no rashes, warm and dry Neurologic: moves all extremities and awake; not confused Psychiatric: A+Ox3, euthymic affect Discharge Exam General: 39yo obese male laying in bed, NAD HEENT head atraumatic, normocephalic, eyes anicteric, mmm, trachea midline, thick neck Resp: even/unlabored, no obvious wheezing/rales, remains on room air 94% CV: RRR, no significant m/r/g, no pitting edema, calves nontender GI: +BS, +distension but no overt tenderness/guarding, no rebound, no hernandez willis sign. does have right anterior upper abdominal wall area from his insulin injections reported no lockett MSK/Neuro: nonfocal, not confused, answering questions appropriately Psych: AOx3, cooperative and pleasant with exam Skin: rash to legs/arms/abd as well as scattered lesions with reported psoriasis (IMPROVING compared to yesterday) Discharge Plan Discharge Items Patient Disposition: Home - Self-Care Reason For Visit: ACUTE PANCREATITIS Discharge Diagnosis: Acute pancreatitis Goals: You have been hospitalized for an acute medical problem. During your stay at [facility], we have made an effort to correct the problem that brought you to the hospital while keeping you as comfortable as possible. Medications were used to bring your condition under control and your discharge instructions will include directions for any medications you should take after leaving the hospital. Please make sure you see your Primary Care Provider as part of your follow up plan. Activity: As commented below Non-emergency contact: Primary Care Provider, Specialist and Test Worker Call non-emergency contact if: you have any medication questions, your symptoms worsen, your pain is not controlled, your pain is concerning for you and you have a fever Follow-up/Referrals: Jena Naidu DO [Primary Care Provider] - 06/04/24 9:00 am Julianna Da Silva MD [Physician] - Radha Cornell PA-C [Outside Practitioners] - (PA with Dermatology) Diet: Carb Count or DM1 and Low Fat Addtl Attending Provider Instructions: You have been hospitalized for abdominal pain and found to have evidence for pancreatitis. We utilized IV fluids for hydration and limited your diet to allow things to calm down. Pain control has been provided. We consulted gastroenterology and performed an MRCP (MRI) which did NOT show evidence for obstruction needing urgent ERCP and stent but this will be the eventual plan given stones in the duct which can cause problems in the long term care phlebotomist. After recovered from this episode GI is recommending ERCP and stent placement in 4 weeks as an outpatient. After recovered from acute episode and stent placement, should have dedicated pancreas imaging in follow up with GI/primary care. discussed, should have LOW FAT diet continued at discharge and avoid increased fried/fatty foods which can worsen pancreatitis. Absolutely NO alcohol. Tylenol can be used but to limit to 2000mg/daily. We also discussed your psoriasis and your vitamin D level was checked and VERY low. We have started Vitamin D replacement and are continuing this once daily at discharge. Your hydrocortisone cream has been CHANGED TO BETAMETHASONE and is to be continued TWICE DAILY. You should have follow up with dermatology and if the increased topical steroids in combination with your Tremfyu not having improvement should investigate alternative treatments as there is association between pancreatitis and psoriasis, especially if not being adequately treated. Your liver enzymes have improved on repeat. Your Lipitor has been resumed at discharge. You should continue fenofibrate daily for triglycerides and also decrease fat intake/encourage weight loss as able. You should follow up with primary care in the next 7-10 days to monitor your status after discharge from the hospital and coordination of your care. Please return to the ER with any increased/uncontrolled pain, fever/chills, chest pain, shortness of breath, or for any other symptoms concerning for you. It has been a pleasure being a part of the medical team providing for you while you have been in the hospital. Pending Studies at Discharge: No Stand-Alone Forms: [employer] A/S, Smoking Cessation Medications and DC Order Prescriptions: New betamethasone, augmented 0.05 % Cream 1 applic EXT BID Qty: 15 0RF cholecalciferol (vitamin D3) 125 mcg (5,000 unit) Tablet 125 mcg PO QAM Qty: 30 0RF Continued (DME) blood sugar diagnostic Strip See Rx Instructions .ROUTE .MEDSUPPLY Qty: 100 3RF Rx Instructions: One touch ultra Flex test strips testing 3 X a day. (DME) FreeStyle Kimberly 2 Sensor Kit See Rx Instructions .ROUTE .MEDSUPPLY Qty: 6 3RF Rx Instructions: Change every 14 days hydrochlorothiazide 25 mg tablet 25 mg PO DAILY Qty: 90 3RF escitalopram oxalate [Lexapro] 10 mg tablet 10 mg PO DAILY Qty: 90 3RF atorvastatin 80 mg tablet 80 mg PO QPM Qty: 90 1RF icosapent ethyl [Vascepa] 1 gram capsule 1 g PO BID Qty: 180 1RF (DME) pen needle, diabetic [BD Ultra-Fine Mini Pen Needle] 31 gauge x 3/16" needle See Rx Instructions .Route Qty: 400 3RF Rx Instructions: Use 4 per day to inject insulin. fenofibrate 160 mg tablet 160 mg PO DAILY Qty: 90 3RF pantoprazole 40 mg tablet,delayed release (DR/EC) 40 mg PO QAM Qty: 90 3RF (DME) Omnipod 5 G6 Intro Kit (Gen 5) Cartridge See Rx Instructions .ROUTE .MEDSUPPLY Qty: 1 0RF Rx Instructions: As directed ([facility] [place]) Omnipod 5 G6 Pods (Gen 5) Cartridge See Rx Instructions .ROUTE .MEDSUPPLY Qty: 15 11RF Rx Instructions: Change pods every 2 days (DME) Dexcom G6 Sensor Device See Rx Instructions .ROUTE .MEDSUPPLY Qty: 9 3RF Rx Instructions: change sensor every 10 days (DME) Dexcom G6 Transmitter Device See Rx Instructions .ROUTE .MEDSUPPLY Qty: 1 3RF Rx Instructions: change every 90 days Humulin N NPH Insulin KwikPen 100 unit/mL (3 mL) insulin pen 12 unit subcut QPM Tremfya 100 mg/mL auto-injector 100 mg subcut UD Rx Instructions: 100 mg subcutaneously every 6 weeks; metoprolol succinate 50 mg tablet extended release 24 hr 50 mg PO DAILY Qty: 30 2RF losartan 100 mg tablet 100 mg PO DAILY Qty: 90 3RF diltiazem HCl [Tiazac] 420 mg capsule,extended release 24hr 420 mg PO HS Qty: 90 3RF Humalog KwikPen Insulin 200 unit/mL (3 mL) insulin pen 1 unit subcut TIDWMEAL MDD 350units Rx Instructions: injecting per sliding scale up to TDD of 350 units insulin glargine U-300 conc [Toujeo Max U-300 SoloStar] 300 unit/mL (3 mL) insulin pen 96 unit subcut DAILY Held hydrocortisone 2.5 % cream 1 applic topical BID PRN (Reason: skin irritation) Qty: 28 3RF Hold Instructions: hold while on betamethasone cream until discussed with dermatology Discharge Orders: Discharge Order (Routine); Ordered 05/31/24 Ordered By: Yanira Werner/Other Patient Handouts: Managing Type 1 Diabetes Admission Data Admit Date/Time: 05/28/24 19:15 Attending Provider: Eloisa Dumont Admit Provider: Ritesh Saul Primary Care Provider: Jena Naidu Other Providers: Ritesh Saul; Julianna Da Silva Other Interventions: Discharge Summary Assessment (RN) Last Done: 05/31/24 11:12 Hospital Stay Data Consultations 05/28/24 17:20 ED Decision to Admit Stat 05/28/24 23:31 Consult Gastroenterology Routine Diagnostic Imagining Performed Abdomen/Pelvis CT 05/28/24 14:40 CT abd pelvis IV con only CLINICAL HISTORY: epigastric pain, h/o pancreatitis TECHNIQUE: Helical axial images of the abdomen and pelvis were obtained and displayed. Automated dose lowering techniques and/or adjustment according to patient size were utilized for this exam. This exam was performed with intravenous contrast. CT DOSE: 1593.71 mGy.cm COMPARISON: Comparison is made to CT abdomen pelvis 02/08/2020 FINDINGS: Lower chest: No acute abnormality. Liver: Unremarkable. No focal lesions are seen. Gallbladder and biliary tree: Patient is status post cholecystectomy. Physiologic prominence of the biliary ducts is noted. Pancreas: Soft tissue stranding is seen about the pancreatic head. Multiple jeremias cifications in the duct near the pancreatic head with prominence of the pancreatic duct in the body measuring approximately 7 mm. Spleen: Unremarkable. Adrenals: Unremarkable. 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 Bladder: Unremarkable. Reproductive organs: Unremarkable. Bowel: The appendix is normal. Lymph nodes Retroperitoneal: Unremarkable. Pelvic: Unremarkable. Mesenteric: Subcentimeter lymph nodes are noted. Peritoneum: Fat stranding is seen about the pancreatic head. Vessels: Unremarkable. Abdominal wall: Fat stranding is seen in the anterior abdominal wall, similar to prior exam. Bones: Minimal degenerative changes are seen. IMPRESSION: 1. Acute pancreatitis likely due to obstructed pancreatic duct stones. No evidence of acute peripancreatic collections. 2. Absent left kidney is surgically absent gallbladder. 3. Persistent right anterior abdominal wall swelling. ACT 112: Negative or not required by law. Electronically signed by: Miguelito Saul M.D. 05/28/2024 3:24 PM Cholangiopancreatography MRI 05/29/24 08:04 MRCP CLINICAL HISTORY: panceatitis, obs stones, LFts TECHNIQUE: Utilizing a 1.5 Poly magnet and dedicated coil, multiplanar, multiecho imaging of the upper abdomen was performed utilizing heavily T2 weighted pulsing sequences without IV contrast. COMPARISON STUDY: Abdominal ultrasound August 05, 2022. CT of the abdomen and pelvis May 28, 2024. FINDINGS: No intra or extrahepatic biliary ductal dilatation is identified status post cholecystectomy. The common bile duct measures 6 mm in caliber. No common bile duct calculi are identified although this exam is moderately compromised by motion artifact. Moderate pancreatic ductal dilatation is noted. The pancreatic duct measures 7 mm in caliber. The calcified calculi within the pancreatic duct at the level the pancreatic head on CT of May 28, 2024 are not well-visualized by MRI. Mild peripancreatic stranding and fluid is present. There are no peripancreatic fluid collections. Pancreatic glandular atrophy is noted. There is mild hepatosplenomegaly. Hepatic steatosis is better depicted on CT. The left kidney is not visualized. There is compensatory hypertrophy of the right kidney. Caliber and wall thickness of visualized small and large bowel are normal. IMPRESSION: 1. Mild peripancreatic stranding and fluid consistent with acute pancreatitis. No peripancreatic fluid collections. This may be related to calculi within the pancreatic duct on CT of May 28, 2024. These calculi are not well- visualized by CT. Associated pancreatic ductal dilatation. Pancreatic glandular atrophy. The findings favor acute on chronic pancreatitis. A follow-up CT of the abdomen pancreas protocol in 3 months to ensure resolution is recommended to exclude the less likely possibility of an underlying pancreatic lesion. 2. No biliary ductal dilatation status post cholecystectomy. No common bile duct calculi identified although exam mildly compromised by motion artifact. 3. Mild hepatosplenomegaly. Hepatic steatosis, better depicted by CT. ACT 112: Negative or not required by law. Electronically signed by: Noé Rizvi M.D. 05/29/2024 11:11 AM Discharge Instructions Given to Patient (Per Discharging Provider) You have been hospitalized for abdominal pain and found to have evidence for pancreatitis. We utilized IV fluids for hydration and limited your diet to allow things to calm down. Pain control has been provided. We consulted gastroenterology and performed an MRCP (MRI) which did NOT show evidence for obstruction needing urgent ERCP and stent but this will be the eventual plan given stones in the duct which can cause problems in the halfway. After recovered from this episode GI is recommending ERCP and stent placement in 4 weeks as an outpatient. After recovered from acute episode and stent placement, should have dedicated pancreas imaging in follow up with GI/primary care. discussed, should have LOW FAT diet continued at discharge and avoid increased fried/fatty foods which can worsen pancreatitis. Absolutely NO alcohol. Tylenol can be used but to limit to 2000mg/daily. We also discussed your psoriasis and your vitamin D level was checked and VERY low. We have started Vitamin D replacement and are continuing this once daily at discharge. Your hydrocortisone cream has been CHANGED TO BETAMETHASONE and is to be continued TWICE DAILY. You should have follow up with dermatology and if the increased topical steroids in combination with your Tremfyu not having improvement should investigate alternative treatments as there is association between pancreatitis and psoriasis, especially if not being adequately treated. Your liver enzymes have improved on repeat. Your Lipitor has been resumed at discharge. You should continue fenofibrate daily for triglycerides and also decrease fat intake/encourage weight loss as able. You should follow up with primary care in the next 7-10 days to monitor your status after discharge from the hospital and coordination of your care. Please return to the ER with any increased/uncontrolled pain, fever/chills, chest pain, shortness of breath, or for any other symptoms concerning for you. It has been a pleasure being a part of the medical team providing for you while you have been in the hospital. Supervising Physician Co-Signing Physician Notes CHALINO Supervision Note: I did not personally see or examine the patient today, but I verified all ball points of CHALINO Pedroza's assessment and plan with the following exceptions/additions: None Total Time Total Time Spent Total Time Spent (In Minutes): 45 Total Time Includes: Examination of the Patient, Discharge Planning, Medication Reconciliation and Communication With Other Providers Coding Level of Care Code 86369 INP/OBS DISCH >30 MIN Diagnoses Pancreatitis K85.90 Acute pancreatitis complication: unspecified Chronicity: acute Pancreatitis type: unspecified pancreatitis type Type 1 diabetes mellitus with nephropathy E10.21 Psoriasis L40.9 Vitamin D deficiency E55.9 Obstructive sleep apnea G47.33 Hypokalemia E87.6
== END 2024-05-31 12:43 | disposition home or self-care (01) | DRG 440 ==
LOC: ED 13:38 → 3N 19:15 → SUATTDRO 19:15 → 3N 21:01